=== PATIENT | female | born 1970 | race Caucasian/White ===

== ENCOUNTER → 2020-12-03 07:01 | Outpatient (CLI) | payer OTHER, SELFPAY ==
--- NOTE | 2020-12-03 07:05 | CT_ITS ---
STUDY: CT FACIAL BONES WITHOUT CONTRAST REASON FOR EXAM: Female, 50 years old. FACIAL PAIN. Daily headaches. RADIATION DOSAGE (If Supplied By Facility): CTDIvol = ( 33.06 ) mGy, DLP = ( 842.11 ) mGycm TECHNIQUE: The patient was scanned in a multi detector CT scanner. Sagittal and coronal images were reconstructed. Individualized dose optimization techniques were used for this CT. COMPARISON: None. FINDINGS: Normal soft tissue structures. Normal orbital chaney and orbital contents. Normal nasal bones and anterior nasal spine. Nasal septal deviation towards the right side of the midline. Normal facial bones. There is no demonstrated fracture. Normal visualized paranasal sinuses. CT/Sinus/Facial Bone IMPRESSION: Normal unenhanced CT of the facial bones. Electronically Signed: Jenaro Gibson MD at 9:47 EDT , Service support ,
== END ==
PROVIDERS: PCP Nurse Practitioner Family; Referring Provider Otolaryngology; Visit Provider Otolaryngology
DX: J32.9 Chronic sinusitis, unspecified (principal); R51.9 Headache, unspecified
CPT/HCPCS: 70486

== ENCOUNTER 2022-10-11 06:30 | Day surgery (SDC) | payer OTHER, SELFPAY ==
[2022-10-11] VITALS (7 sets, daily range): BP systolic 91–135; BP diastolic 59–79; PULSE 54–65; RESP 18–93; TEMP 36.3–36.6; O2SAT 18–97; BMI 31.8
[2022-10-11] MEDS: Lactated Ringers 1,000 ML 15 ML IV (06:58)
--- NOTE | 2022-10-11 07:30 | RAD_ITS ---
PROCEDURE: Lumbar steroid injections. DATE OF EXAMINATION: October 11, 2022 INDICATION: Female, 52 years old. Chronic back pain. FLUOROSCOPY TIME (if supplied): 31 seconds. 11 images are submitted RAD/Lumbar Spine 2 or 3 Views IMPRESSION: Intraoperative images are provided for transforaminal injections on the left at L2-3, L3-4, L4-5, and L5-S1. Electronically Signed: Michael Irwin MD at 12:32 EDT Reading Location ID and State: [id number] / Unknown , Service support ,
[2022-10-11] MEDS: Lidocaine 1% (20 ml mdv) 20 ML Vial (07:40)
[2022-10-11] MEDS: MethylPREDNISolone Acetate 40 MG/ML Vial IM (07:40)
--- NOTE | 2022-10-11 07:51 | PCM.OPRPT ---
Report of Operation Date of Procedure: 10/11/22 Pre-Operative Diagnosis: Lumbosacral spondylosis, lumbosacral degenerative disc disease, lumbar facet arthropathy Post-Operative Diagnosis: Lumbosacral spondylosis, lumbosacral degenerative disc disease, lumbar facet arthropathy Surgery/Procedure Performed:: Left-sided lumbar radiofrequency ablation of the medial branch L4, L5, S1 Type of Anesthesia: MAC Estimated Blood Loss (mL): Minimal Description of Procedure: History and physical today was reviewed. Risks and benefits of procedure explained. The patient understood, agreed to the procedure and informed consent was obtained. IV inserted per routine protocol. The patient was taken to the operating room, placed in the prone position with a pillow positioned underneath the abdomen. The left side of the lower back was prepped and draped in a sterile fashion using iodine x 3. Under fluoroscopy guidance, on an oblique view, the L3 through S1 vertebral bodies were visualized. The skin and subcutaneous tissue was anesthetized with approximately 10 mL of 1% lidocaine using a 25-gauge regular needle. Under direct visualization with fluoroscopy at approximately 25-degree angle, starting on the left L3, ending on the left S1 passing through the L4-L5 using a 20-gauge 15 cm with a 10 mm curved active tip radiofrequency ablation needle the needle passed through the skin. The tip of the needle was maneuvered and directed towards the superior and medial gutter of the transverse process at the vicinity of the medial branch. Once the tip of the needle was in contact with the bone, the needle pulled approximately 2 mm up the bone. The stylet of each needle was then removed. After negative aspiration of blood with CSF and confirmation of AP as well as oblique view, radiofrequency ablation probe was then inserted at each level. Impedance was then recorded at L3 to be 247, at L4 273, at L5 291, at S1 309 ohm. Motor-evoked potential was then initiated to 1.5 volt without any motor response at each corresponding level. The probe was then removed intact and a total of 6 mL preservative-free 1% lidocaine was injected in divided doses between those 4 levels after negative aspiration of blood with CSF. The radiofrequency ablation probe was then reinserted after confirmation of AP, oblique as well as lateral view. Radiofrequency ablation was then initiated to 80 degrees Celsius for 90 seconds at each level. Once concluded, the probe was then removed intact and a total of 6 mL of preservative-free 0.25% Marcaine with 40 mg Depo-Medrol was injected in divided doses between those 4 levels. The needles were then removed intact. The patient experienced no signs or symptoms of intrathecal, intravascular injection. The patient experienced no paraesthesia. The procedure was completed without any apparent difficulty, any complication. The patient appeared to tolerate well. Sensory as well as motor exam was unchanged from prior to procedure. ASSESSMENT AND PLAN: This is a 52-year-old female with lumbosacral spondylosis, lumbosacral degenerative disc disease, lumbar facet arthropathy, status post left-sided lumbar radiofrequency ablation of the medial branch L4 through S1. The patient will continue her current medications. The patient will follow up in approximately 2 weeks for reevaluation. Complications None
== END 2022-10-11 08:24 | disposition home or self-care (01) ==
LOC: SDC 06:39 → AC 06:41
PROVIDERS: PCP Nurse Practitioner Family; Referring Provider Anesthesiology Pain Medicine; Visit Provider Anesthesiology Pain Medicine
PROC: (CPT 64635; principal; 2022-10-11 07:55)
DX: M47.816 Spondylosis without myelopathy or radiculopathy, lumbar region (principal); M51.37 Other intervertebral disc degeneration, lumbosacral region; M47.817 Spondylosis without myelopathy or radiculopathy, lumbosacral region; F41.9 Anxiety disorder, unspecified; R05.3 Chronic cough; I10 Essential (primary) hypertension; F17.200 Nicotine dependence, unspecified, uncomplicated
CPT/HCPCS: 64635; 64483; 72100; 76000; J7120

== ENCOUNTER → 2023-04-06 | Outpatient (CLI) | payer OTHER, SELFPAY ==
--- NOTE | 2023-04-06 14:55 | RAD_ITS ---
INDICATION: PNEUMONIA EXAMINATION/TECHNIQUE: X-RAY - XR Chest 2 Views COMPARISON: Prior study dated: 06/17/2015. FINDINGS: LINES/DEVICES: None. LUNGS: Right perihilar opacity/infiltrate likely in the superior segment of the right lower lobe concerning for pneumonia. No evidence of pleural effusions. MEDIASTINUM AND CARDIOVASCULAR STRUCTURES: Cardiac silhouette not enlarged. Central airways and mediastinal contour are unremarkable. BONES AND SOFT TISSUES: Unremarkable. RAD/Chest PA and Lateral IMPRESSION: Right perihilar infiltrate concerning for pneumonia. Follow-up exam until resolution is recommended to exclude underlying tumor. Electronically Signed: Thien Hawthorne MD at 8:23 EST ,
--- OUTSIDE RECORDS SUMMARY | 2023-04-06 15:18 | XMS RPT_ITS | CCD ---
Author Name Unknown Address [address] [place] [address] Organization [facility] Care Team Providers Care Network Support Analyst Name Role Phone REFERRING, AMARJIT GENE ID Unavailable Unavailable ALEKSANDAR CRUZ Unavailable Unavailable PHYSICIAN, NONE Unavailable Unavailable ANTHONY STEM THRESHING MACHINE OPERATOR - ROLLING MACHINE OPERATOR AUTOMATIC, ALEKSANDAR Diaz Primary Care Phys ician AnthonyAleksandar trevizo Primary Care Provider [phone] Geovanny Grajeda MD Unavailable Mendel Wagner MD Unavailable GEOVANNY GRAJEDA Admitting Unavailable GEOVANNY GRAJEDA Attending Unavailable ANTHONY, ALEKSANDAR Primary Care Unavailable ANTHONY, ALEKSANDAR Primary Care Unavailable MENDEL WAGNER Admitting Unavailable MENDEL WAGNER Attending Unavailable ANTHONY, ALEKSANDAR Primary Care Unavailable ANTHONY, ALEKSANDAR Primary Care Unavailable LYUBOV HAMMOND Attending Unavailable MENDEL WAGNER Attending Unavailable ANTHONY, ALEKSANDAR Primary Care Unavailable GEOVANNY GRAJEDA Attending Unavailable GEOVANNY GRAJEDA Referring Unavailable ANTHONY, ALEKSANDAR Primary Care Unavailable MENDEL WAGNER Attending Unavailable ANTHONY, ALEKSANDAR Primary Care Unavailable MANNIE BRAXTON Attending Unavailable ANTHONY, ALEKSANDAR Primary Care Unavailable IRIS WARREN Attending Unavailable ANTHONY, ALEKSANDAR Primary Care Unavailable MENDEL WAGNER Attending Unavailable ANTHONY, ALEKSANDAR Primary Care Unavailable GEOVANNY GRAJEDA Attending Unavailable ANTHONY, ALEKSANDAR Primary Care Unavailable GEOVANNY GRAJEDA Attending Unavailable GEOVANNY GRAJEDA Referring Unavailable ANTHONY, ALEKSANDAR Primary Care Unavailable ANTHONY STEM THRESHING MACHINE OPERATOR - ROLLING MACHINE OPERATOR AUTOMATICALEKSANDAR Primary Care U BILLY Arias MD Attending Unavail able ANTHONY STEM THRESHING MACHINE OPERATOR - ROLLING MACHINE OPERATOR AUTOMATICALEKSANDAR Primary Care U navailable ANTHONY STEM THRESHING MACHINE OPERATOR - ROLLING MACHINE OPERATOR AUTOMATIC, ALEKSANDAR Diaz Attending U navailable ANTHONY STEM THRESHING MACHINE OPERATOR - ROLLING MACHINE OPERATOR AUTOMATIC, ALEKSANDAR Diaz Attending U navailable ANTHONY STEM THRESHING MACHINE OPERATOR - ROLLING MACHINE OPERATOR AUTOMATIC, ALEKSANDAR Diaz Primary Care U navailable ANTHONY STEM THRESHING MACHINE OPERATOR - ROLLING MACHINE OPERATOR AUTOMATIC, ALEKSANDAR Diaz Attending U navailable ANTHONY STEM THRESHING MACHINE OPERATOR - ROLLING MACHINE OPERATOR AUTOMATIC, ALEKSANDAR Diaz Primary Care U navailable ANTHONY STEM THRESHING MACHINE OPERATOR - ROLLING MACHINE OPERATOR AUTOMATIC, ALEKSANDAR Diaz Attending U navailable ANTHONY STEM THRESHING MACHINE OPERATOR - ROLLING MACHINE OPERATOR AUTOMATIC, ALEKSANDAR Diaz Primary Care U evonailable LOWE HOT WALKER-C, DARIANA Attending Unavailable ANTHONY STEM THRESHING MACHINE OPERATOR - ROLLING MACHINE OPERATOR AUTOMATIC, ALEKSANDAR Diaz Primary Care U navailable ANTHONY STEM THRESHING MACHINE OPERATOR - ROLLING MACHINE OPERATOR AUTOMATIC, ALEKSANDAR Diaz Primary Care U navailable PREBISH ROLLING MACHINE OPERATOR AUTOMATIC, MAIDA Attending Unavailable Allergies Allergy Classification Reported Allergen(s) Allergy Type Date of Onset Reaction(s) Facility (8 sources) Acetaminophen / HYDROcodone; Translations: [acetaminophen-h ydrocodone] Drug Allergy Hyperactivity [facility] (8 sources) corn extract Drug Allergy [facility] (8 sources) Egg Food allergy [facility] (8 sources) [place] Animalia; Translations: [[place] Animalia (organism)] Allergy to substance [facility] (8 sources) Mushroom (edible) Food allergy Swelling (finding) [facility] (8 sources) Penicillin; Translations: [penicillins] Drug Allergy N/V diarrhea [facility] (8 sources) Shellfish Food allergy [facility] (8 sources) Sugar intake; Translations: [Sugar intake (observable entity)] Food allergy [facility] (20 sources) Diclofenac; Translations: [diclofenac] Drug Allergy 11-09-19 Stomach ache (finding) [facility] [place] (10 sources) Acetaminophen / HYDROcodone Drug Allergy 10-13-19 13 Hallucinations [facility] (20 sources) [place] [employer] Drug Allergy 11-09-19 [facility] (20 sources) Egg Allergy to substance 11-09-19 [facility] (20 sources) HYDROcodone Drug Allergy 10-12-19 [facility] (20 sources) Penicillins Drug Intolerance 10-13-19 13 Diarrhea, Itching, Nausea And Vomiting, Unknown [facility] (20 sources) Shellfish Allergy to substance 11-09-19 Hives [facility] (20 sources) Food Allergy to substance 11-09-19 Swelling [facility] (3 sources) Octacosanol Propensity to adverse reactions 11-09-19 [facility] (20 sources) Pollen Propensity to adverse reactions 11-19-19 [facility] (16 sources) Contrast media Propensity to adverse reactions 11-25-19 Diarrhea [facility] (10 sources) Other Propensity to adverse reactions 01-13-20 [facility] Medications Current Medications Medication Drug Class(es) Dates Sig (Normalized) Sig (Original) acetaminophen 325 mg / oxyCODONE hydrochloride 5 mg oral tablet (3 sources) Opioid Agonist Start: 01-20-2023 End: 01-25-2023 take 1 tablet by mouth every six hours as needed for pain oxyCODONE-acetamino phen (Percocet) 5-325 MG tablet Indications: UPJ obstruction, acquired Take 1 tablet by mouth every 6 hours as needed for severe pain (7-10) for up to 5 days. 12 tablet 0 01/20/2023 01/25/2023 Active albuterol MDI (90 mcg/inh) CFC free inhalation aerosol (2 sources) Start: 03-03-2023 End: 04-02-2023 take 2 puff(s) by inhalation every six hours albuterol MDI (90 mcg/inh) CFC free inhalation aerosol 2 puff(s), Inhalation, q6h, # 18 gram(s), 0 Refill(s), Pharmacy: [facility]/pharmacy #[id number], Wheezing on auscultation, 167, cm, 03/03/23 13:13:00 EST, Height, kg, 03/03/23 13:13:00 EST, Dosing Weight Start Date: 03/03/23 Stop Date: 04/02/23 Status: Ordered azithromycin 250 mg oral tablet (1 source) Macrolide Antimicrobial Start: 03-03-2023 End: 03-08-2023 Zithromax Z-Amado 250 mg oral tablet Take two (2) tablets day 1-then one (1) tablet, Oral, Daily, X 5 day(s), # 6 tab(s), 0 Refill(s), 03/08/23 1:42:00 PM EST, [id number], Acute bronchitis, 167, cm, 03/03/23 13:13:00 EST, Height, 81, kg, 03/03/23 13:13:00 EST, Dosing Weight Start Date: 03/03/23 Stop Date: 03/08/23 Status: Ordered dexamethasone 6 mg oral tablet (1 source) Corticosteroid Start: 03-03-2023 End: 03-13-2023 dexAMETHasone 6 mg oral tablet Dose : 6 mg = 1 tab(s), Oral, qDay, X 10 day(s), # 10 tab(s), 0 Refill(s), 03/13/23 1:42:00 PM EST, Pharmacy: [facility]/pharmacy #[id number], Wheezing on auscultation, 167, cm, 03/03/23 13:13:00 EST, Height, kg, 03/03/23 13:13:00 EST, Dosing Weight Start Date: 03/03/23 Stop Date: 03/13/23 Status: Ordered diclofenac sodium 75 mg delayed release oral tablet (1 source) Nonsteroidal Anti-inflammatory Drug Start: 07-30-2021 End: 08-29-2021 diclofenac sodium 75 mg oral delayed release tablet Dose : 75 mg = 1 tab(s), Oral, BID, # 60 tab(s), 0 Refill(s), Pharmacy: [facility]/pharmacy #[id number], Lower back pain, 166, cm, 07/30/21 15:48:00 EDT, Height Start Date: 07/30/21 Stop Date: 08/29/21 Status: Ordered doxycycline hyclate 100 mg oral tablet (1 source) Tetracycline-class Drug Start: 09-07-2022 take 1 tablet by mouth twice daily doxycycline hyclate 100 mg oral tablet TAKE 1 TABLET BY MOUTH TWICE A DAY Start Date: 09/07/22 Status: Ordered [id number] 0.3 ml EPINEPHrine 1 mg/ml auto-injector (20 sources) alpha-Adrenergic Agonist, beta-Adrenergic Agonist, Catecholamine Start: 06-14-2022 inject 0.3 mg by subcutaneous injection once EPINEPHrine (Epipen) 0.3 MG/0.3ML injection syringe INJECT 0.3 MG SUBCUTANEOUSLY ONCE 0 06/14/2022 Active Completed/Discontinued Medications Medication Drug Class(es) Dates Sig (Normalized) Sig (Original) acetaminophen 500 mg oral tablet (20 sources) Start: 01-19-2023 End: 01-20-2023 take 1 tablet by mouth every eight hours 1,000 mg, Oral, Every 8 hours, First dose on Tue01/19/23 at 2300, Phase II/On Unit, Maximum dose of acetaminophen is 4000 mg from all sources in 24 hours. Problems Active Problems Problem Classification Problem Date Documented Da te Episodic/Chronic Abdominal pain (9 sources) Flank pain; Translations: [Unspecified abdominal pain] Onset: 11-24-2022 11-24-2022 Episodic Acute bronchitis (2 sources) Acute bronchitis 03-03-2023 Episodic Anxiety disorders (8 sources) Generalized anxiety disorder 04-14-2021 Chronic Calculus of urinary tract (10 sources) History of calculus of kidney; Translations: [Personal history of urinary calculi] Onset: 11-08-2022 02-07-2020 Episodic Past or Other Problems Problem Classification Problem Date Documented Date Episodic/Chronic Conditions associated with dizziness or vertigo (1 source) Vertigo Onset: 09-27-2016 Episodic Nausea and vomiting (20 sources) Postoperative nausea and vomiting; Translations: [Nausea with vomiting, unspecified] Onset: 11-15-2022 11-15-2022 Episodic Other diseases of kidney and ureters (2 sources) Hydronephrosis with ureteropelvic junction obstruction; Translations: [Hydronephrosis with ureteropelvic junction obstruction] Onset: 11-24-2022 Episodic Other diseases of kidney and ureters (2 sources) Unspecified hydronephrosis; Translations: [Unspecified hydronephrosis] Onset: 11-18-2022 Episodic Results Test Name Value Interpretation Reference Range Facil ity Vital Signs Date Time Vital Sign Value Performing Clinician Chani kelly 03-02-2023 10:12-0500 Body height 167.6 cm Mendel Wagner MD Work Phone: [employer] 03-02-2023 10:12-0500 Body mass index (BMI) [Ratio] 31.47 kg/m2 Mendel Wagner MD Work Phone: [employer] 03-02-2023 10:12-0500 Body weight 88.45 kg Mendel Wagner MD Work Phone: [employer] 03-02-2023 10:12-0500 Diastolic blood pressure 86 mm[Hg] Mendel Wagner MD Work Phone: [employer] 03-02-2023 10:12-0500 Heart rate 76 /min Mendel Wganer MD Work Phone: [employer] 03-02-2023 10:12-0500 Systolic blood pressure 124 mm[Hg] Mendel Wagner MD Work Phone: [facility] [employer] 02-02-2023 08:38-0500 Body height 167.6 cm Iris Warren STEM THRESHING MACHINE OPERATOR - ROLLING MACHINE OPERATOR AUTOMATIC Work Phone: [facility] 02-02-2023 08:38-0500 Body mass index (BMI) [Ratio] 31.47 kg/m2 Iris Warren STEM THRESHING MACHINE OPERATOR - ROLLING MACHINE OPERATOR AUTOMATIC Work Phone: [facility] 02-02-2023 08:38-0500 Body weight 88.45 kg Iris Warren STEM THRESHING MACHINE OPERATOR - ROLLING MACHINE OPERATOR AUTOMATIC Work Phone: [facility] 02-02-2023 08:38-0500 Diastolic blood pressure 70 mm[Hg] Iris Warren STEM THRESHING MACHINE OPERATOR - ROLLING MACHINE OPERATOR AUTOMATIC Work Phone: [employer] 02-02-2023 08:38-0500 Heart rate 59 /min Iris Warren STEM THRESHING MACHINE OPERATOR - ROLLING MACHINE OPERATOR AUTOMATIC Work Phone: [employer] 02-02-2023 08:38-0500 Systolic blood pressure 103 mm[Hg] Iris Warren STEM THRESHING MACHINE OPERATOR - ROLLING MACHINE OPERATOR AUTOMATIC Work Phone: [facility] 01-20-2023 09:40-0400 Body temperature 97.9 [degF] Mendel Wagner MD Work Phone: [employer] 01-20-2023 09:40-0400 Diastolic blood pressure 82 mm[Hg] Mendel Wagner MD Work Phone: [facility] 01-20-2023 09:40-0400 Heart rate 70 /min Mendel Wagner MD Work Phone: [facility] 01-20-2023 09:40-0400 Respiratory rate 16 /min Mendel Wagner MD Work Phone: [facility] 01-20-2023 09:40-0400 SaO2% (BldA) [Mass fraction] 94 % Mendel Wagner MD Work Phone: [facility] 01-20-2023 09:40-0400 Systolic blood pressure 133 mm[Hg] Mendel Wagner MD Work Phone: [facility] 01-19-2023 13:12-0400 Body height 167.6 cm Mendel Wagner MD Work Phone: [facility] 01-19-2023 13:12-0400 Body mass index (BMI) [Ratio] 31.96 kg/m2 Mendel Wagner MD Work Phone: [facility] 01-19-2023 13:12-0400 Body weight 89.81 kg Mendel Wagner MD Work Phone: [facility] 01-07-2023 12:25-0400 Diastolic blood pressure 77 mm[Hg] Lyubov Voll DO Work Phone: [facility] 01-07-2023 12:25-0400 Heart rate 65 /min Lyubov Voll DO Work Phone: [facility] 01-07-2023 12:25-0400 Respiratory rate 18 /min Lyubov Voll DO Work Phone: [facility] 01-07-2023 12:25-0400 SaO2% (BldA) [Mass fraction] 93 % Lyubov Voll DO Work Phone: [facility] 01-07-2023 12:25-0400 Systolic blood pressure 143 mm[Hg] Lyubov Voll DO Work Phone: [facility] 01-07-2023 09:33-0400 Body height 167.6 cm Lyubov Voll DO Work Phone: [facility] 01-07-2023 09:33-0400 Body mass index (BMI) [Ratio] 31.8 kg/m2 Lyubov Voll DO Work Phone: [facility] 01-07-2023 09:33-0400 Body temperature 98.29 [degF] Lyubov Voll DO Work Phone: [facility] 01-07-2023 09:33-0400 Body weight 89.36 kg Lyubov Vuongl DO Work Phone: [facility] 12-16-2022 13:44-0400 Body height 167.6 cm Mannie Braxton STEM THRESHING MACHINE OPERATOR - ROLLING MACHINE OPERATOR AUTOMATIC Work Phone: [facility] 12-16-2022 13:44-0400 Body mass index (BMI) [Ratio] 31.64 kg/m2 Mannie Braxton STEM THRESHING MACHINE OPERATOR - ROLLING MACHINE OPERATOR AUTOMATIC Work Phone: [facility] 12-16-2022 13:44-0400 Body weight 88.91 kg Mannie Braxton STEM THRESHING MACHINE OPERATOR - ROLLING MACHINE OPERATOR AUTOMATIC Work Phone: [facility] 12-16-2022 13:44-0400 Diastolic blood pressure 78 mm[Hg] Mannie Neily STEM THRESHING MACHINE OPERATOR - ROLLING MACHINE OPERATOR AUTOMATIC Work Phone: [facility] 12-16-2022 13:44-0400 Heart rate 73 /min Mannie Neily STEM THRESHING MACHINE OPERATOR - ROLLING MACHINE OPERATOR AUTOMATIC Work Phone: [facility] 12-16-2022 13:44-0400 Systolic blood pressure 162 mm[Hg] Mannie Neily STEM THRESHING MACHINE OPERATOR - ROLLING MACHINE OPERATOR AUTOMATIC Work Phone: [facility] 11-18-2022 15:00-0400 Diastolic blood pressure 74 mm[Hg] Geovanny Grajeda MD Work Phone: [facility] 11-18-2022 15:00-0400 Heart rate 62 /min Geovanny Grajeda MD Work Phone: [facility] 11-18-2022 15:00-0400 Respiratory rate 16 /min Geovanny Grajeda MD Work Phone: [facility] 11-18-2022 15:00-0400 SaO2% (BldA) [Mass fraction] 94 % Geovanny Grajeda MD Work Phone: [facility] 11-18-2022 15:00-0400 Systolic blood pressure 123 mm[Hg] Geovanny Grajeda MD Work Phone: [facility] 11-18-2022 13:40-0400 Body temperature 98.1 [degF] Geovanny Grajeda MD Work Phone: [facility] 11-18-2022 09:31-0400 Body height 167.6 cm Geovanny Grajeda MD Work Phone: [facility] 11-18-2022 09:31-0400 Body mass index (BMI) [Ratio] 31.64 kg/m2 Geovanny Grajeda MD Work Phone: [facility] 11-18-2022 09:31-0400 Body weight 88.91 kg Geovanny Grajeda MD Work Phone: [facility] 03-11-2022 12:54-0500 Diastolic Blood Pressure Non-Invasive 75 1 BILLY ANGULO MD [facility] 03-11-2022 12:54-0500 Heart rate 74 /min BILLY ANGULO MD [facility] 03-11-2022 12:54-0500 Respiratory rate 17 /min BILLY ANGULO MD [facility] 03-11-2022 12:54-0500 Systolic Blood Pressure Non-Invasive 112 1 BILLY ANGULO MD [facility] 03-11-2022 12:33-0500 Diastolic Blood Pressure Non-Invasive 76 1 BILLY ANGULO MD [facility] 03-11-2022 12:33-0500 Heart rate 73 /min BILLY ANGULO MD [facility] 03-11-2022 12:33-0500 Respiratory rate 15 /min BILLY ANGULO MD [facility] 03-11-2022 12:33-0500 Systolic Blood Pressure Non-Invasive 119 1 BILLY ANGULO MD [facility] 03-11-2022 12:04-0500 Diastolic Blood Pressure Non-Invasive 74 1 BILLY ANGULO MD [facility] 03-11-2022 12:04-0500 Heart rate 75 /min BILLY ANGULO MD [facility] 03-11-2022 12:04-0500 Respiratory rate 20 /min BILLY ANGULO MD [facility] 03-11-2022 12:04-0500 Systolic Blood Pressure Non-Invasive 112 1 BILLY ANGULO MD [facility] 03-11-2022 10:42-0500 Body height 167.6 cm BILLY ANGULO MD [facility] 03-11-2022 10:42-0500 Body temperature 97.7 [degF] BILLY ANGULO MD [facility] 03-11-2022 10:42-0500 Body weight 87 kg BILLY ANGULO MD [facility] 03-11-2022 10:42-0500 Heart rate 87 /min BILLY ANGULO MD [facility] Encounters Encounter Date Encounter Type Care Provider Facility Start: 03-25-2023 End: 03-26-2023 ambulatory ALEKSANDAR CRUZ STEM THRESHING MACHINE OPERATOR - ROLLING MACHINE OPERATOR AUTOMATIC Facility:[facility] Start: 03-25-2023 End: 03-25-2023 Patient encounter procedure ALEKSANDAR CRUZ STEM THRESHING MACHINE OPERATOR - ROLLING MACHINE OPERATOR AUTOMATIC [facility] Start: 03-07-2023 End: 03-08-2023 ambulatory ALEKSANDAR CRUZ STEM THRESHING MACHINE OPERATOR - ROLLING MACHINE OPERATOR AUTOMATIC Facility:[facility] Start: 03-07-2023 End: 03-07-2023 Patient encounter procedure ALEKSANDAR CRUZ STEM THRESHING MACHINE OPERATOR - ROLLING MACHINE OPERATOR AUTOMATIC [facility] Start: 03-02-2023 End: 03-02-2023 [facility] Start: 03-02-2023 End: 03-02-2023 Patient encounter procedure Mendel Wagner MD Work Phone: [facility] Procedures Date Procedure Procedure Detail Performing Clinician Start: 01-20-2023 Creatinine other source Emmanuel Yepez MD Work Phone: Start: 01-20-2023 Basic metabolic pane l calcium total Emmanuel Yepez MD Work Phone: Start: 01-19-2023 End: 01-19-2023 Laparoscopy surg pyeloplasty Mendel Wagner MD Work Phone: Start: 01-07-2023 Basic metabolic pane l calcium total Noris Chávez STEM THRESHING MACHINE OPERATOR Work Phone: Start: 01-07-2023 Urnls dip stick/tabl et rgnt auto w/o microscopy Noris Chávez STEM THRESHING MACHINE OPERATOR Work Phone: Start: 11-18-2022 FL GUIDANCE OR USE O NLY - NON-RESULTABLE Geovanny Grajeda MD Work Phone: Start: 03-28-2009 Vaginal hysterectomy RI TERRELL SALAZARPKINS STEM THRESHING MACHINE OPERATOR - ROLLING MACHINE OPERATOR AUTOMATIC Start: 03-28-2004 Extracorporeal shock wave lithotripsy of calculus of kidney ALEKSANDAR SALAZARPKINS STEM THRESHING MACHINE OPERATOR - ROLLING MACHINE OPERATOR AUTOMATIC Plan of Treatment Date Care Activity Detail Author Start: 2029 RSV Immunization aged 60 or older (1 - 1-dose 60+ series) RSV Immunization aged 60 or older (1 - 1-dose 60+ series) [facility] Start: 02-16-2025 Diabetes mellitus screening Diabetes Screening [facility] Start: 06-14-2023 End: 06-14-2023 Patient encounter procedure 06/14/2023 9:50 AM EDT Office Visit [facility] [address] [place] [id number] Mendel Wagner MD [address] [place] [address] [facility] Start: 05-30-2023 End: 05-30-2023 Patient encounter procedure 05/30/2023 7:30 AM EST Appointment [facility] [address] [place] [address] Mendel Wagner MD [address] [place] [address] [facility] Start: 03-02-2023 End: 03-02-2024 US Retroperitoneum limited US retroperitoneum limited Imaging Routine Obstruction of left ureteropelvic junction (UPJ) Expected: 03/02/2023, Expires: 03/02/2024 [facility] Work Phone: Immunizations Immunization Date Immunization Notes Care Provider Fa cili 03-17-2021 COVID-19, mRNA, LNP- S, PF, 100 mcg or 50 mcg dose; Translations: [Moderna COVID-19 Vaccine] ALEKSANDAR ANTHONY STEM THRESHING MACHINE OPERATOR - ROLLING MACHINE OPERATOR AUTOMATIC [facility] 08-29-2020 SARS-CoV-2 (COVID-19 ) mRNA-1273 vaccine ALEKSANDAR CRUZ STEM THRESHING MACHINE OPERATOR - ROLLING MACHINE OPERATOR AUTOMATIC [facility] 07-31-2020 SARS-CoV-2 (COVID-19 ) mRNA-1273 vaccine ALEKSANDAR CRUZ STEM THRESHING MACHINE OPERATOR - ROLLING MACHINE OPERATOR AUTOMATIC [facility] Payers Date Payer Category Payer Unknown [employer] [id number] 2022-Present [address] [place] [address] Commercial [id number] 2022 Unknown [id number] 2007 Unknown [id number] 1970 Unknown [id number] 1969 Unknown [id number] 1969 Unknown [id number] 1969 Unknown [id number] 1969 Unknown [id number] 1969 Unknown [id number] 1970 Unknown [id number] Social History Date Type Detail Facility Start: 05-01-2018 End: 03-03-2023 Heavy tobacco smoker (finding) [facility] Start: 1970 Sex Assigned At Female A [facility] Start: 10-26-1984 End: 02-02-2023 Tobacco smoking status NHIS Smokes tobacco daily [facility] Start: 10-26-1984 End: 11-06-2022 History of tobacco use Cigarette Smoker [facility] Start: 11-15-2022 End: 01-20-2023 Cigarettes smoked current (pack per day) - Reported 1 [facility] Start: 11-15-2022 End: 02-02-2023 Tobacco use and exposure Smokeless tobacco non-user [facility] Start: 11-15-2022 End: 01-19-2023 Alcohol intake Current drinker of alcohol (finding) [facility] Start: 11-15-2022 End: 01-20-2023 Tobacco use panel [facility] Start: 1970 Sex Assigned At Not on file [facility] Start: 11-05-2022 End: 12-16-2022 Exposure to SARS-CoV-2 (event) Not sure [facility] Tobacco smoking stat us LAIS Tobacco smoking consumption unknown [facility] Work Phone: Start: 01-07-2023 Alcohol Comment one to two daily [facility] Start: 01-07-2023 Gender identity Identifies as female gender (finding) [facility] How often to you hav e a drink containing alcohol? Monthly or less [facility] How many standard drinks containing alcohol do you have on a typical day? 1 or 2 [facility] Frequency of Binge Drinking Not on file [facility] Within the last year , have you been afraid of your partner or ex-partner? No [facility] How often to you hav e a drink containing alcohol? 4 or more times a week [facility] How often do you hav e 6 or more drinks on 1 occasion? Never [facility] Start: 01-21-2023 End: 03-02-2023 Alcohol intake Ex-drinker (finding) [facility] Medical Equipment Procedure Code Equipment Code Equipment Origin al Text Equipment Identifier Dates Stent Uret 6fr 2 6cm Wo Gw - [id number] Start: 11-18-2022 Stent Uret 6fr 2 6cm Wo Gw - [id number] Start: 01-19-2023 Functional Status Date Assessment Result Facility 03-11-2022 Functional Status Independent [facility] 03-11-2022 Functional Status Standard Safet y ID band on, Allergy Band on, Call device within reach, Bed in low position, Wheels locked [facility] Mental Status Date Assessment Result Facility 03-11-2022 Mental Status Orientation Oriented x 4 [facility] 03-11-2022 Mental Status [facility] Clinical Notes 03-11-2022 to 03-07-2023 Carlee Velazquez RN - 03/02/2023 10:20 AM Jim Wagner MD - 03/02/2023 10:20 AM ESTAddendum Note - Deborah Drew MA - 03/02/2023 10:20 AM Denita Freed RN - 01/20/2023 2:42 PM EDTLaboratory Note Date & Type Note Facility 03-07-2023 Note ORIGINAL EXAMINATION: TWO XRAY VIEWS OF THE CHEST03/07/2023 8:54 am COMPARISON: None HISTORY: ORDERING SYSTEM PROVIDED HISTORY: Reason for Exam: Productive cough, shortness of breath and wheezing not improved with conservative outpatient management FINDINGS: The heart size is normal. A new masslike area of consolidation projects in the right parahilar region measuring up to 4.9 cm. When correlated with the lateral image, this abnormality is believed to be within the superior segment right lower lobe. No pneumothorax or pleural effusion. No aggressive osseous lesions identified.Degenerative changes seen of the spine. IMPRESSION: New masslike area of consolidation in the superior segment of the right lower lobe. Differential diagnosis includes an unusual appearance of pneumonia or a pulmonary malignancy. If there are signs of pneumonia, close surveillance may be obtained to ensure resolution. If there are no signs of pneumonia or if the opacity does not resolve, CT will be necessary to exclude malignancy. The findings were sent to the Radiology Results Communication Center at 9:00 am on 03/07/2023 to be communicated to a licensed caregiver. 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 The patient concurred with the proposed plan, giving informed consent. Cystoscopy was performed today under local anesthesia, using sterile technique. The patient was placed on the office table, prepped with Betadine, and draped in the usual sterile fashion. A flexible cystoscope was used to perform this procedure. Findings: Anterior urethra: normal without strictures and without scarring. Bladder: Normal mucosa, without lesions. Ureteral orifice(s) was/were seen bilateral. Ureteral orifice(s) bilateral were in the normal location and bilateral ureteral orifices were effluxing clear urine. A stent removal was performed from the left side without complication Specimens: none Complications: None; patient tolerated the procedure well. Disposition: To home after 30 minute observation. Condition: stable Attending Attestation: I performed the procedure. Check renal US in 3 mo 6 weeks post op robotic left pyeloplasty [facility] 03-02-2023 Note Addended by: DEBORAH AVILES on: 03/02/2023 10:45 AM Modules accepted: Orders [facility] 03-02-2023 History of Present illness Narrative ENDOSHEATH [id number] EXP 12/25/25 Images from the original note were not included. Cystoscopy Procedure Note Indications: Obstruction of left ureteropelvic junction (UPJ) [N13.5] Pre-operative Diagnosis: left hydronephrosis Post-operative Diagnosis: same Procedure Details The risks, benefits, complications, treatment options, and expected outcomes were discussed with the patient. The patient concurred with the proposed plan, giving informed consent. Cystoscopy was performed today under local anesthesia, using sterile technique. The patient was placed on the office table, prepped with Betadine, and draped in the usual sterile fashion. A flexible cystoscope was used to perform this procedure. Findings: Anterior urethra: normal without strictures and without scarring. Bladder: Normal mucosa, without lesions. Ureteral orifice(s) was/were seen bilateral. Ureteral orifice(s) bilateral were in the normal location and bilateral ureteral orifices were effluxing clear urine. A stent removal was performed from the left side without complication Specimens: none Complications: None; patient tolerated the procedure well. Disposition: To home after 30 minute observation. Condition: stable Attending Attestation: I performed the procedure. Check renal US in 3 mo 6 weeks post op robotic left pyeloplasty documented in this encounter [facility] 03-02-2023 Miscellaneous Notes Addended by: DEBORAH DREW on: 03/02/2023 10:45 AM Modules accepted: Orders documented in this encounter [facility] 03-02-2023 Note Addended by: DEBORAH AVILES on: 03/02/2023 10:45 AM Modules accepted: Orders [facility] 03-02-2023 Note Addended by: DEBORAH AVILES on: 03/02/2023 10:45 AM Modules accepted: Orders [facility] 03-02-2023 Note Addended by: DEBORAH AVILES on: 03/02/2023 10:45 AM Modules accepted: Orders [facility] 02-02-2023 Telephone encounter Note Return to work letter revised. [facility] [employer] [employer] Work Phone: 02-02-2023 Miscellaneous Notes Return to work letter revised. documented in this encounter [facility] 02-02-2023 History of Present illness Narrative Images from the original note were not included. Iris Warren CNP, APRN 02/02/2023 Urology Office Visit [facility] [address] [facility] [address] Dept: [phone] Dept Loc: [phone] PATIENT NAME: Loni Turner DATE OF : 1970 REFERRING PROVIDER: No ref. provider found PCP: Aleksandar Cruz TODAY'S DATE: 02/02/2023 Loni is a 52 y.o. female who presents today for the following: Chief Complaint Patient presents with Post-op Patient here for follow up post pyeloplasty, pt reports doing well, no issues/concerns Assessment and Plan: Diagnosis Plan 1. Obstruction of left ureteropelvic junction (UPJ) Addressed pyeloplasty follow-up: Patient has been feeling really well. Stated patient can use bacitracin on lower left port site due to irritation from clothing. Follow-up as scheduled for cystoscopy, ureteral stent removal. Would like to return to work on light duty, no lifting at 4 weeks postop. Letter provided. All patient questions answered. Patient voiced understanding. Patient agreed with treatment plan. Follow Up: No follow-ups on file. Iris Warren CNP, APRN [facility] An electronic signature was used to authenticate this note. HPI: Records have been reviewed. 01/19/2023 patient underwent robotic left pyeloplasty for left UPJ obstruction. 11/18/2022: S/p cystoscopy, left retrograde pyelogram, left ureteroscopy, left ureteral stent placement by Geovanny Grajeda MD. A left ureteropelvic junction narrowing was noted intraoperatively; no masses or filling defects noted. Patient had obstruction at the UPJ with intermittent and progressive hydronephrosis over the last 5 years. Since procedure, patient has been feeling really well. Denies pain, flank pain, fever, chills, hematuria, incisional drainage. Patient denies constipation, has been tolerating oral intake. 01/22/2023 Creatinine 0.69, GFR >90 Review of Systems: All pertinent positives and negatives per HPI as stated above. Social History Tobacco Use Smoking status: Every Day Packs/day: 0.50 Years: 38.00 Additional pack years: 0.00 Total pack years: 19.00 Types: Cigarettes Start date: 10/26/1984 Last attempt to quit: 11/06/2022 Years since quittin.2 Smokeless tobacco: Never Vaping Use Vaping Use: Never used Substance Use Topics Alcohol use: Not Currently Alcohol/week: 7.0 standard drinks of alcohol Comment: one to two daily Drug use: Not Currently Frequency: 3.0 times per week Types: Marijuana Comment: smokes Past Medical History: Diagnosis Date Abnormal Pap smear of cervix Allergies Anxiety Arthritis COPD (chronic obstructive pulmonary disease) ([facility]) not diagnosed, patient feels that she had d/t smoking history Degenerative disc disease, lumbar Depression Hypertension Kidney stones PONV (postoperative nausea and vomiting) STD (sexually transmitted disease) Urinary tract infection Past Surgical History: Procedure Laterality Date SECTION, LOW TRANSVERSE COLONOSCOPY HYSTERECTOMY KIDNEY STONE SURGERY LITHOTRIPSY LITHOTRIPSY (HISTORICAL) x3 TONSILLECTOMY adnoids TUBAL LIGATION WISDOM TOOTH EXTRACTION Allergies Allergen Reactions Red Dye #40 [Red Dye] Diarrhea [place] Oil Diclofenac Other reaction(s): Stomach upset Egg Solids, Whole Food Swelling MUSHROOMS; SUGAR (Frutose) Hydrocodone Other reaction(s): Nausea/Vom/Diarrhea, hallucinations Hydrocodone-Acetaminophen Hallucinations VICODIN Other seasonal Penicillins Diarrhea, Itching, Nausea And Vomiting and Unknown Pollen Extract Seasonal allergies Shellfish Allergy Hives Pt reports no issues with contrast dye Current Outpatient Medications Medication Sig Dispense Refill acetaminophen (Tylenol) 500 MG tablet Take 1,000 mg by mouth. EPINEPHrine (Epipen) 0.3 MG/0.3ML injection syringe INJECT 0.3 MG SUBCUTANEOUSLY ONCE escitalopram (Lexapro) 20 MG tablet Take 20 mg by mouth daily. fluticasone (Flonase Allergy Relief) 50 MCG/ACT nasal spray Dose = 1 spray(s), Nostril, each, qDay, 0 Refill(s) valsartan-hydroCHLOROthiazide (Diovan-HCT) 320-12.5 MG tablet Take 1 tablet by mouth daily. ibuprofen 200 MG tablet Take 400 mg by mouth. No current facility-administered medications for this visit. Physical Exam: BP 103/70 (BP Location: Right arm, Patient Position: Sitting, BP Cuff Size: Large adult) Pulse 59 Ht 5' 6 (1.676 m) Wt 195 lb (88.5 kg) BMI 31.47 kg/m Physical Exam Constitutional: Appearance: Normal appearance. Pulmonary: Effort: Pulmonary effort is normal. Abdominal: Palpations: Abdomen is soft. Tenderness: There is no abdominal tenderness. There is no right CVA tenderness or left CVA tenderness. Skin: General: Skin is warm and dry. Neurological: Mental Status: She is alert and oriented to person, place, and time. Psychiatric: Mood and Affect: Mood normal. Behavior: Behavior normal. Pertinent Labs: CBC: Lab Results Component Value Date WBC 7.5 01/22/2023 HGB 15.0 01/22/2023 HCT 43.5 01/22/2023 MCV 96.7 01/22/2023 PLT 195 01/22/2023 CMP: Lab Results Component Value Date NA 137 01/22/2023 K 3.9 01/22/2023 CL 99 01/22/2023 CO2 32 (H) 01/22/2023 BUN 10 01/22/2023 CREATININE 0.69 01/22/2023 GLUCOSE 93 01/22/2023 ALT 25 01/22/2023 AST 46 01/22/2023 ALKPHOS 71 01/22/2023 Testosterone: No results found for: TESTOSTERONE PSA: No results found for: PSA Hemoglobin A1C: No results found for: HGBA1C URINALYSIS: Lab Results Component Value Date COLORU 01/22/2023 Comment: [place] CLARITYU Clear 01/22/2023 GLUCOSEUR Negative 11/08/2022 BILIRUBINUR Negative 11/08/2022 KETONESU Negative 01/22/2023 SPECGRAV 1.005 11/08/2022 RBCUR Trace-Lysed 11/08/2022 PHUR 5.5 11/08/2022 PROTUR 50 (A) 01/22/2023 UROBILINOGEN Normal 01/22/2023 LEUKOCYTESUR Negative 11/08/2022 NITRITE Negative 11/08/2022 Imaging: Procedure: Please note that portions of this chart were dictated using [employer] electronic voice recognition software. It is possible that typos and/or omissions and/or substitutions of words and/or phrases may exist, which may alter the intended meaning of the dictating provider. documented in this encounter [facility] 01-24-2023 Telephone encounter Note Noted. Closing encounter. [facility] Work Phone: 01-24-2023 Miscellaneous Notes Noted. Closing encounter. S: Patient spoke with [facility] nurse regarding post procedure. B: Onset of symptoms/concern Bleeding.Robotic Pyeloplasty 01/19/2023 A:New On set of urinating blood in urine tonight,started at 18:00 Pt has 3 episodes states about a cup with all 3 episodes. Pt denies clots . Bright red blood denies clots with urine. Pain in abdomen and mild. Pt states puncture sites are intact.Denies fever nausea and vomiting. R: Pt will go to [facility]. Patient understands care advice. No further needs at this time. Patient instructed to call back with new or worsening symptoms. Reason for Disposition Patient sounds very sick or weak to the triager Answer Assessment - Initial Assessment Questions 1. SYMPTOM: What's the main symptom you're concerned about? (e.g., pain, fever, vomiting) Bleeding pure blood 2. ONSET: When did start? 18:00 3. SURGERY: What surgery did you have? Robotic Pyeloplasty 4. DATE of SURGERY: When was the surgery? 01/19/2023 5. ANESTHESIA: What type of anesthesia did you have? (e.g., general, spinal, epidural, local) General 6. PAIN: Is there any pain? If Yes, ask: How bad is it? (Scale 1-10; or mild, moderate, severe) Moderate 7. FEVER: Do you have a fever? If Yes, ask: What is your temperature, how was it measured, and when did it start? Denies 8. VOMITING: Is there any vomiting? If Yes, ask: How many times? Denies 9. BLEEDING: Is there any bleeding? If Yes, ask: How much? and Where? Yes 10. OTHER SYMPTOMS: Do you have any other symptoms? (e.g., drainage from wound, painful urination, constipation) Pure Bright red Blood 3 Episodes and 1 cup Protocols used: Post-Op Symptoms and [id number] documented in this encounter [facility] 01-21-2023 Note S: Patient spoke wit h [facility] nurse regarding post procedure. B: Onset of symptoms/concern Bleeding.Robotic Pyeloplasty 01/19/2023 A:New On set of urinating blood in urine tonight,started at 18:00 Pt has 3 episodes states about a cup with all 3 episodes. Pt denies clots . Bright red blood denies clots with urine. Pain in abdomen and mild. Pt states puncture sites are intact.Denies fever nausea and vomiting. R: Pt will go to [facility]. Patient understands care advice. No further needs at this time. Patient instructed to call back with new or worsening symptoms. Reason for Disposition Patient sounds very sick or weak to the triager Answer Assessment - Initial Assessment Questions 1. SYMPTOM: What's the main symptom you're concerned about? (e.g., pain, fever, vomiting) Bleeding pure blood 2. ONSET: When did start? 18:00 3. SURGERY: What surgery did you have? Robotic Pyeloplasty 4. DATE of SURGERY: When was the surgery? 01/19/2023 5. ANESTHESIA: What type of anesthesia did you have? (e.g., general, spinal, epidural, local) General 6. PAIN: Is there any pain? If Yes, ask: How bad is it? (Scale 1-10; or mild, moderate, severe) Moderate 7. FEVER: Do you have a fever? If Yes, ask: What is your temperature, how was it measured, and when did it start? Denies 8. VOMITING: Is there any vomiting? If Yes, ask: How many times? Denies 9. BLEEDING: Is there any bleeding? If Yes, ask: How much? and Where? Yes 10. OTHER SYMPTOMS: Do you have any other symptoms? (e.g., drainage from wound, painful urination, constipation) Pure Bright red Blood 3 Episodes and 1 cup Protocols used: Post-Op Symptoms [id number] Tele[facility] encounter Note S: Patient spoke with [facility] nurse regarding post procedure. B: Onset of symptoms/concern Bleeding.Robotic Pyeloplasty 01/19/2023 A:New On set of urinating blood in urine tonight,started at 18:00 Pt has 3 episodes states about a cup with all 3 episodes. Pt denies clots . Bright red blood denies clots with urine. Pain in abdomen and mild. Pt states puncture sites are intact.Denies fever nausea and vomiting. R: Pt will go to [facility]. Patient understands care advice. No further needs at this time. Patient instructed to call back with new or worsening symptoms. Reason for Disposition Patient sounds very sick or weak to the triager Answer Assessment - Initial Assessment Questions 1. SYMPTOM: What's the main symptom you're concerned about? (e.g., pain, fever, vomiting) Bleeding pure blood 2. ONSET: When did start? 18:00 3. SURGERY: What surgery did you have? Robotic Pyeloplasty 4. DATE of SURGERY: When was the surgery? 01/19/2023 5. ANESTHESIA: What type of anesthesia did you have? (e.g., general, spinal, epidural, local) General 6. PAIN: Is there any pain? If Yes, ask: How bad is it? (Scale 1-10; or mild, moderate, severe) Moderate 7. FEVER: Do you have a fever? If Yes, ask: What is your temperature, how was it measured, and when did it start? Denies 8. VOMITING: Is there any vomiting? If Yes, ask: How many times? Denies 9. BLEEDING: Is there any bleeding? If Yes, ask: How much? and Where? Yes 10. OTHER SYMPTOMS: Do you have any other symptoms? (e.g., drainage from wound, painful urination, constipation) Pure Bright red Blood 3 Episodes and 1 cup Protocols used: Post-Op Symptoms and [id number] [facility] 01-20-2023 History of Present illness Narrative Pt is discharged. Pt discharge instructions printed and reviewed with pt. Pt declines any ordered prescriptions. Meds to bed also verified she denied prescriptions. Pt states she has them at home. Pt iv removed. Pt drain removed. Pt free of distress to discharge with sister. UROLOGY PROGRESS NOTE PATIENT NAME: Loni Turner DATE OF : 1970 ADMISSION DATE: 01/19/2023 1:02 PM TODAY'S DATE: 01/20/2023 Subjective No acute events overnight. Doing well Pain controlled No nausea or vomiting Drinking water Hasn't ambulated yet Demonstrated IS usage on rounds Objective VS: BP (!) 152/92 (BP Location: Left arm) Pulse 79 Temp 36.3 C (97.4 F) (Temporal) Resp 18 Ht 5' 6 (1.676 m) Wt 198 lb (89.8 kg) SpO2 93% BMI 31.96 kg/m Vitals: 01/20/23 0512 BP: (!) 152/92 Pulse: 79 Resp: 18 Temp: 36.3 C (97.4 F) SpO2: 93% I & O - 24hr: Intake/Output Summary (Last 24 hours) at 01/20/2023 0726 Last data filed at 01/20/2023 0627 Gross per 24 hour Intake 612.26 ml Output 395 ml Net 217.26 ml Physical Exam: General: Neck: Resp: Abdomen: No acute distress Supple Normal effort on RA Soft, obese, mild ttp around incisions, incisions c/d/I w/ mild bruising around midline incision, HETAL w/ scant SS output : Catheter draining iris urine (removed) Skin: Skin color, texture, turgor normal, no rashes or lesions Labs and Imaging Studies Labs: CBC: Recent Labs 01/20/23218 WBC 8.1 HGB 15.2 HCT 44.0 MCV 95.7 PLT 224 BMP: Recent Labs 01/20/23218 NA 130* K 4.3 CL 95* CO2 25 BUN 17 CREATININE 0.77 Magnesium: No results found for: MG Phosphate: No results found for: PHOS PT/INR: No results for input(s): PROTIME , INR in the last 72 hours. U/A: No results found for: NITRITE , LEUKOCYTESUR , PHUR , BACTERIA , SPECGRAV , BLOODU , GLUCOSEU , KETONESU Urine Culture: No components found for: LABURIN Obesity BMI 31 Assessment and Plan ASSESSMENT: 52 y.o. female with left UPJ obstruction s/p robotic left pyeloplasty 01/19 PLAN: - catheter removed on rounds - labs reviewed - stable - encourage IS usage and ambulation this morning - continue Ivf for now - regular diet - HETAL Cr needs sent, messaged nurse - plan for discharge later this morning after removal of HETAL drain Emmanuel Yepez MD 01/20/2023 7:26 AM The history and physical has been reviewed. The pertinent findings from the history of present illness, past medical history, family history, social history, review of systems have been noted and confirmed that are unchanged. Discussed with the urology resident. Agree with assessment and plan documented in this encounter [facility] 01-20-2023 Note Formatting of this n ote might be different from the original. Care Managment Initial Assessment Date: 01/20/2023 Patient Name: Loni Turner : 1970 Patient Information Source of Information: Patient Cognition/Language: WFL - Within Functional Limits Permission given to speak with patient marketing representative/caregiver as indicated: Yes Confirmation of Payer with patient/family: Yes Payer Name: O : No Confirmation of Primary Care Physician: Confirmed PCP Name: Dr Aleksandar Neely Seen in last 2 years?: Yes Primary Caregiver: Self If assistance needed, confirmed caregiver ready, willing and able to care for patient at discharge: Yes Confirmed with: Sister Adele Quevedo in from out of town and will be staying with patient for two weeks. Living Arrangements Current Residence: (Patient resides in a one level mobile home) Number of Floors 1 Number of Entry Steps: 2 Bed/Bath Levels: Both first floor Facility: Facility Name: Plan to Return: Lives with: Alone Support Systems: Family members Activities of Daily Living Ambulation: Independent Bathing/Dressing: Independent Elimination/Continence/Toileting: Independent Feeding: Independent Who Assists with Activities of Daily Living: Instrumental Activities of Daily Living Prescription Coverage: Yes Pharmacy Used: [facility] [place], [place] Medication Management: Independent Transportation/Shopping: Independent Transportation Mode: Car Needs Assistance with Transportation at Discharge: No Meal Preparation: Independent Laundry/Cleaning: Independent Finances/Bill Paying: Independent Communication: Independent Types of Care Services/Equipment Utilized Care Services: Dialysis Type: Durable Medical Equipment: Patient's Goal/Discharge Plan Patient expects to be discharged to: home Discharge Planning Actions: No needs identified Patient's Choice Rights and [employer] and Collaborative Relationships Disclosed as Indicated for Post-Acute Care: Interdisciplinary Team Engagement: Social Work Referral for: Additional Information: Pt is POD 1 for Robotic Left Pyeloplasty 2/2 hydronephrosis w ureteropelvic junction obstruction. Post op pt doing well. Tolerating diet, ambulating, voiding. HETAL drain fluid sent for creatinine level HETAL to be dc'd prior to dc Bedside assessment with patient 01/20/23. Introduced self and role. Pt had her sister present(Adele Quevedo). Permission to complete interview in sister's presence given. Plan per pt is for sister to stay with her for two weeks and assist as needed as well as transport pt home. Pt and sister voiced no needs at dc. TCC to follow. Beatris Causey RN [facility] 01-20-2023 Note Formatting of this n ote might be different from the original. Care Managment Initial Assessment Date: 01/20/2023 Patient Name: Loni Turner : 1970 Patient Information Source of Information: Patient Cognition/Language: WFL - Within Functional Limits Permission given to speak with patient marketing representative/caregiver as indicated: Yes Confirmation of Payer with patient/family: Yes Payer Name: MMO : No Confirmation of Primary Care Physician: Confirmed PCP Name: Dr Aleksandar Neely Seen in last 2 years?: Yes Primary Caregiver: Self If assistance needed, confirmed caregiver ready, willing and able to care for patient at discharge: Yes Confirmed with: Sister Adele Emy in from out of town and will be staying with patient for two weeks. Living Arrangements Current Residence: (Patient resides in a one level mobile home) Number of Floors 1 Number of Entry Steps: 2 Bed/Bath Levels: Both first floor Facility: Facility Name: Plan to Return: Lives with: Alone Support Systems: Family members Activities of Daily Living Ambulation: Independent Bathing/Dressing: Independent Elimination/Continence/Toileting: Independent Feeding: Independent Who Assists with Activities of Daily Living: Instrumental Activities of Daily Living Prescription Coverage: Yes Pharmacy Used: [facility] [place], [place] Medication Management: Independent Transportation/Shopping: Independent Transportation Mode: Car Needs Assistance with Transportation at Discharge: No Meal Preparation: Independent Laundry/Cleaning: Independent Finances/Bill Paying: Independent Communication: Independent Types of Care Services/Equipment Utilized Care Services: Dialysis Type: Durable Medical Equipment: Patient's Goal/Discharge Plan Patient expects to be discharged to: home Discharge Planning Actions: No needs identified Patient's Choice Rights and [employer] and Collaborative Relationships Disclosed as Indicated for Post-Acute Care: Interdisciplinary Team Engagement: Social Work Referral for: Additional Information: Pt is POD 1 for Robotic Left Pyeloplasty 2/2 hydronephrosis w ureteropelvic junction obstruction. Post op pt doing well. Tolerating diet, ambulating, voiding. HETAL drain fluid sent for creatinine level HETAL to be dc'd prior to dc Bedside assessment with patient 01/20/23. Introduced self and role. Pt had her sister present(Adele Quevedo). Permission to complete interview in sister's presence given. Plan per pt is for sister to stay with her for two weeks and assist as needed as well as transport pt home. Pt and sister voiced no needs at dc. TCC to follow. Beatris Causey RN [facility] 01-20-2023 Miscellaneous Notes Care Managment Initial Assessment Date: 01/20/2023 Patient Name: Loni Turner : 1970 Patient Information Source of Information: Patient Cognition/Language: WFL - Within Functional Limits Permission given to speak with patient marketing representative/caregiver as indicated: Yes Confirmation of Payer with patient/family: Yes Payer Name: MMO [place]: No Confirmation of Primary Care Physician: Confirmed PCP Name: Dr Aleksandar Neely Seen in last 2 years?: Yes Primary Caregiver: Self If assistance needed, confirmed caregiver ready, willing and able to care for patient at discharge: Yes Confirmed with: Sister Adele Quevedo in from out of town and will be staying with patient for two weeks. Living Arrangements Current Residence: (Patient resides in a one level mobile home) Number of Floors 1 Number of Entry Steps: 2 Bed/Bath Levels: Both first floor Facility: Facility Name: Plan to Return: Lives with: Alone Support Systems: Family members Activities of Daily Living Ambulation: Independent Bathing/Dressing: Independent Elimination/Continence/Toileting: Independent Feeding: Independent Who Assists with Activities of Daily Living: Instrumental Activities of Daily Living Prescription Coverage: Yes [facility] [place], [place] Medication Management: Independent Transportation/Shopping: Independent Transportation Mode: Car Needs Assistance with Transportation at Discharge: No Meal Preparation: Independent Laundry/Cleaning: Independent Finances/Bill Paying: Independent Communication: Independent Types of Care Services/Equipment Utilized Care Services: Dialysis Type: Durable Medical Equipment: Patient's Goal/Discharge Plan Patient expects to be discharged to: home Discharge Planning Actions: No needs identified Patient's Choice Rights and [employer] and Collaborative Relationships Disclosed as Indicated for Post-Acute Care: Interdisciplinary Team Engagement: Social Work Referral for: Additional Information: Pt is POD 1 for Robotic Left Pyeloplasty 2/2 hydronephrosis w ureteropelvic junction obstruction. Post op pt doing well. Tolerating diet, ambulating, voiding. HETAL drain fluid sent for creatinine level HETAL to be dc'd prior to dc Bedside assessment with patient 01/20/23. Introduced self and role. Pt had her sister present(Adele Quevedo). Permission to complete interview in sister's presence given. Plan per pt is for sister to stay with her for two weeks and assist as needed as well as transport pt home. Pt and sister voiced no needs at dc. TCC to follow. Beatris Causey RN Problem: Pain - Adult Goal: Verbalizes/displays adequate comfort level or baseline comfort level Outcome: Progressing Problem: Safety - Adult Goal: Free from fall injury Outcome: Progressing DOS: January 19, 2023 Pre-op Diagnosis: left UPJ obstruction Post-op Diagnosis: same Operation:left Robotic laparoscopic pyeloplasty Surgeon : Mendel Wagner M.D. Electronic Coils Supervisor: Todd Valencia Anesthesia: General Special Consideration: Modifier Indications:Loni Turner is a 52 y.o. year-old female who was referred to ct for treatment of a UPJ obstruction. A CT scan revealed hydronephrosis. Retrograde pyelograms and ureteroscopy were performed and did reveal UPJ obstruction with high insertion and hydronephrosis. The patient was recommended to undergo pyeloplasty with da Leann surgical robot. All risks, benefits and alternatives were discussed, and all questions were answered prior to proceeding. Individual considerations: Left flank pain Procedure : Informed consent was obtained. Patient was given perioperative antibiotics and DVT prophylaxis in preop holding area. General anesthesia was administered. A Mcgoawn catheter was placed. A nasogastrictube was placed by anesthesia. Patient was placed in the lateral position with left flank up . All the pressure points were padded and patient secured to the table with adhesive tapes. STEP 1; PORT PLACEMENT Pneumoperitoneum of 15 mmHg was created by placing a Veress needle below the costal margin in the left upper quadrant. Using a visiport a cannula was placed under direct vision to be used for the camera port. Three additional robotic cannulas were placed under direct vision. A 12mm criminal legal assistant port was placed below the umbilicus. The Surgical robot was docked to the bedside cart. STEP 2; Reflecting the colon The colon was mobilized medially by dissecting along the white line of Toldt. The mobilization was carried out to expose the retroperitoneum. The psoas, gonadal and ureter were exposed. STEP 3; Ureteral Dissection The ureter was mobilized and widely dissected to preserver the vascular supply. A vessel loop was passed around the ureter for atraumatic handling. The ureter was mobilized proximally and distally. The ureter was dissected free from the gonadal and followed to the renal pelvis. A crossing vessel was observed. A high insertion of the ureter was observed. STEP 4; Ureteral Transection The ureter was transected at the level of the stenosis. The strictured area was excised and sent for pathology. The ureter was spatulated laterally. If the renal pelvis opening needed it was spatulated medially. The edges were freshened and the length was adequate for a tension free anastomosis`. STEP 5: Anastamosis Using double armed 4-0 vicryl a running watertight anastomosis was carried out, making certain to bring well vascularized mucosal edges together. The anastomoses was complete part way using both stitches, and prior to finishing this a 6fr x 26cm JJ stent was placed through the criminal legal assistant port over 0.035 glide wire. The anastomosis was then finished and did appear to be water tight. STEP 6; Wound closure Instruments were removed. A HETAL drain was placed through the left lateral robotic port. Skin was closed by subcuticular 4-0 Monocryls. The specimen was removed. Patient tolerated the procedure well. documented in this encounter [facility] 01-20-2023 Note Patient ID: Loni Turner [id number] 52 y.o. 1970 Admit date: 01/19/2023 Discharge date: 01/20/23 Admitting Physician: Mendel Wagner MD Discharge Physician: Mendel Wagner MD Admission Diagnoses: Unspecified hydronephrosis [N13.30] Hydronephrosis with ureteropelvic junction obstruction (CODE) [N13.0] UPJ obstruction, acquired [N13.5] Discharge Diagnoses: Unspecified hydronephrosis [N13.30] Hydronephrosis with ureteropelvic junction obstruction (CODE) [N13.0] UPJ obstruction, acquired [N13.5] Admission Condition: good Discharged Condition: good Indication for Admission: Unspecified hydronephrosis [N13.30] Hydronephrosis with ureteropelvic junction obstruction (CODE) [N13.0] UPJ obstruction, acquired [N13.5] Hospital Course: The patient was taken to OR for 01/19 Robotic pyeloplasty and tolerated procedure without any complications. Immediately post-op, patient was extubated and transferred to PACU in stable condition. After PACU criteria was met, and within 24 hours of procedure, patient was transferred to floor. Throughout tamar-operative course, there was monitoring of vital signs, urine output and clinical status of patient. Diet was subsequently advanced and by the day of discharge, patient was ambulating, voiding and tolerating PO without difficulty. Pain was well controlled with oral medications by time of discharge. Void trial was passed on day of discharge. The HETAL drain had low output and a creatinine level was drawn from its fluid, which was equivalent to the serum creatinine level. Thus, the HETAL drain was removed prior to discharge. Disposition: home Patient Instructions: Medication List START taking these medications oxyCODONE-acetaminophen 5-325 MG tablet; Commonly known as: Percocet; Take 1 tablet by mouth every 6 hours as needed for severe pain (7-10) for up to 5 days. phenazopyridine 200 MG tablet; Commonly known as: Pyridium; Take 1 tablet (200 mg) by mouth 3 times daily for 3 days. senna-docusate sodium 8.6-50 MG tablet; Commonly known as: Senokot-S; Take 1 tablet by mouth daily. CONTINUE taking these medications acetaminophen 500 MG tablet; Commonly known as: Tylenol EPINEPHrine 0.3 MG/0.3ML injection syringe; Commonly known as: Epipen escitalopram 20 MG tablet; Commonly known as: Lexapro Flonase Allergy Relief 50 MCG/ACT nasal spray; Generic drug: fluticasone ibuprofen 200 MG tablet valsartan-hydroCHLOROthiazide 320-12.5 MG tablet; Commonly known as: Diovan-HCT Activity: no heavy lifting for 4-6 weeks Diet: regular diet Wound Care: Ok to shower, but no baths or swimming pools. Allow soap and water to run over incision site and pat dry. Avoid rubbing at incision as this could disrupt the closure. Follow-up with your surgeon post-operative visit. Call office phone number to schedule your appointment. Signed: Lisa Collazo MD 01/20/2023 7:42 AM [facility] 01-20-2023 Note UROLOGY PROGRESS NOTE PATIENT NAME: Loni Turner DATE OF : 1970 ADMISSION DATE: 01/19/2023 1:02 PM TODAY'S DATE: 01/20/2023 Subjective No acute events overnight. Doing well Pain controlled No nausea or vomiting Drinking water Hasn't ambulated yet Demonstrated IS usage on rounds Objective VS: BP (!) 152/92 (BP Location: Left arm) Pulse 79 Temp 36.3 ?C (97.4 ?F) (Temporal) Resp 18 Ht 5' 6 (1.676 m) Wt 198 lb (89.8 kg) SpO2 93% BMI 31.96 kg/m? Vitals: 01/20/23 0512 BP: (!) 152/92 Pulse: 79 Resp: 18 Temp: 36.3 ?C (97.4 ?F) SpO2: 93% I & O - 24hr: Intake/Output Summary (Last 24 hours) at 01/20/2023 07 Last data filed at 01/20/2023 06 Gross per 24 hour Intake 612.26 ml Output 395 ml Net 217.26 ml Physical Exam: General: Neck: Resp: Abdomen: No acute distress Supple Normal effort on RA Soft, obese, mild ttp around incisions, incisions c/d/I w/ mild bruising around midline incision, HETAL w/ scant SS output : Catheter draining iris urine (removed) Skin: Skin color, texture, turgor normal, no rashes or lesions Labs and Imaging Studies Labs: CBC: Recent Labs 01/20/23218 WBC 8.1 HGB 15.2 HCT 44.0 MCV 95.7 PLT 224 BMP: Recent Labs 01/20/23218 NA 130* K 4.3 CL 95* CO2 25 BUN 17 CREATININE 0.77 Magnesium: No results found for: MG Phosphate: No results found for: PHOS PT/INR: No results for input(s): PROTIME , INR in the last 72 hours. U/A: No results found for: NITRITE , LEUKOCYTESUR , PHUR , BACTERIA , SPECGRAV , BLOODU , GLUCOSEU , KETONESU Urine Culture: No components found for: LABURIN Obesity BMI 31 Assessment and Plan ASSESSMENT: 52 y.o. female with left UPJ obstruction s/p robotic left pyeloplasty 01/19 PLAN: - catheter removed on rounds - labs reviewed - stable - encourage IS usage and ambulation this morning - continue Ivf for now - regular diet - HETAL Cr needs sent, messaged nurse - plan for discharge later this morning after removal of HETAL drain Emmanuel Yepez MD 01/20/2023 7:26 AM The history and physical has been reviewed. The pertinent findings from the history of present illness, past medical history, family history, social history, review of systems have been noted and confirmed that are unchanged. Discussed with the urology resident. Agree with assessment and plan [facility] 01-20-2023 Note Problem: Pain - Adul t Goal: Verbalizes/displays adequate comfort level or baseline comfort level Outcome: Progressing Problem: Safety - Adult Goal: Free from fall injury Outcome: Progressing [facility] 01-20-2023 Plan of care note Problem: Pain - Adult Goal: Verbalizes/displays adequate comfort level or baseline comfort level Outcome: Progressing Problem: Safety - Adult Goal: Free from fall injury Outcome: Progressing [facility] 01-19-2023 Note Patient: Loni Pop or Procedure Summary Date: 01/19/23 Room / Location: [address] Operating Room Anesthesia Start: 1551 Anesthesia Stop: 1817 Procedure: ROBOTIC LEFT PYELOPLASTY (Abdomen) Diagnosis: Unspecified hydronephrosis Hydronephrosis with ureteropelvic junction obstruction (CODE) (Unspecified hydronephrosis [N13.30]) (Hydronephrosis with ureteropelvic junction obstruction (CODE) [N13.0]) Surgeons: Mendel Wagner MD Responsible Provider: Ino Glover MD Anesthesia Type: general, regional ASA Status: 2 Anesthesia Type: general, regional Vitals Value Taken Time BP 105/61 01/19/232 Temp 36.2 ?C (97.1 ?F) 01/19/23 182 Pulse 81 01/19/231821 Resp 14 01/19/23 182 SpO2 98 % 01/19/231821 Anesthesia Post Evaluation Patient location during evaluation: PACU Patient participation: complete - patient participated Level of consciousness: awake and alert Pain management: satisfactory to patient Airway patency: patent Dental Injury: no Cardiovascular status: acceptable, blood pressure returned to baseline and hemodynamically stable Respiratory status: acceptable and spontaneous ventilation Hydration status: euvolemic Nausea/Vomiting: controlled No notable events documented. Patient can be discharged once all PACU criteria has been met. [facility] 01-19-2023 Note Patient: Loni Pop or Procedure Summary Date: 01/19/23 Room / Location: [address] Operating Room Anesthesia Start: 155 Anesthesia Stop: 1817 Procedure: ROBOTIC LEFT PYELOPLASTY (Abdomen) Diagnosis: Unspecified hydronephrosis Hydronephrosis with ureteropelvic junction obstruction (CODE) (Unspecified hydronephrosis [N13.30]) (Hydronephrosis with ureteropelvic junction obstruction (CODE) [N13.0]) Surgeons: Mendel Wagner MD Responsible Provider: Ino Glover MD Anesthesia Type: general, regional ASA Status: 2 Anesthesia Type: general, regional Vitals Value Taken Time BP 105/61 01/19/232 Temp 36.2 ?C (97.1 ?F) 01/19/231821 Pulse 81 01/19/232 Resp 14 01/19/23 182 SpO2 98 % 01/19/231821 Anesthesia Post Evaluation Patient location during evaluation: PACU Patient participation: complete - patient participated Level of consciousness: awake and alert Pain score: 0 Pain management: satisfactory to patient Multimodal analgesia pain management approach Airway patency: patent Two or more strategies used to mitigate risk of obstructive sleep apnea Cardiovascular status: acceptable and hemodynamically stable Respiratory status: acceptable Hydration status: acceptable No notable events documented. MIPS #430 PONV Patient received an inhalational anesthetic (4554F) Patient exhibits three or more risk factors for PONV (4556F) Patient received at leaset 2 prophylactic Rx PONV anti-emtic agents of different classes preop and/or intraop (G9775) MIPS # 424 Perioperative Temperature Management Anesthesia time was 60 minutes or longer (4255F) Anesthesai administered was General (inhalational or TIVA) or Neuraxial block (X0424) At least one body temperature greater than 95.8F/35.5C achieved within the 30 mins immediately prior to or the 15 minutes immediately following anesthesia end time (G9771) MIPS #477 Multimodal Pain Management Not emergent case Patient was administered multimodal pain management (two or more drugs and/or interventions excluding systemic opioids) in the periopeartive period occurring at some time between 6 hours prior to anesthesia start time until discharged from PACU (G2148) MIPS #404 Anesthesiology Smoking Abstinence The patient is not a current smoker (e.g. cigarette, cigar, pipe, e-cigarette/vaping/marijuana) If no stop here (G9644) I completed my handoff to the receiving clinician during which we: 1. Identified the patient 2. Identified the responsible provider 3. Reviewed the pertinent medical history 4. Discussed the surgical course 5. Reviewed intra-op anesthesia management and issues during anesthesia 6. Set expectations for post-procedure period 7. Allowed opportunity for questions and acknowledgement of understanding. [facility] 01-19-2023 Note Interval History and Physical I have interviewed and examined the patient and reviewed the recent History and Physical. There have been no changes to the recent H&P documentation. The H&P resides on a progress note on this patient's chart. The patient understands the planned operation and its associated risks and benefits and agrees to proceed. The surgical consent form has been signed. BP 136/82 Pulse 63 Temp 36.3 ?C (97.4 ?F) (Temporal) Resp 16 Ht 5' 6 (1.676 m) Wt 198 lb (89.8 kg) SpO2 97% BMI 31.96 kg/m? [facility] 01-19-2023 Note Airway Date/Time: 01/19/2023 4:00 PM Urgency: scheduled General Information and Staff Patient location during procedure: Procedural Resident/SUPERVISOR CELLARS: Juventino Cummins CRNA Performed: SUPERVISOR CELLARS Performed by: Juventino Cummins CRNA Authorized by: Juventino Cummins CRNA Indications and Patient Condition Indications for airway management: anesthesia Sedation level: Asleep Preoxygenated: yes Patient position: sniffing MILS maintained throughout Mask difficulty assessment: 1 - vent by mask Final Airway Details Final airway type: endotracheal airway Successful airway: ETT Cuffed: yes Successful intubation technique: direct laryngoscopy Facilitating devices/methods: intubating stylet and anterior pressure/BURP Endotracheal tube insertion site: oral Blade: Johanne Blade size: #3 ETT size (mm): 7.0 Cormack-Lehane Classification: grade IIb - view of arytenoids or posterior of glottis only Placement verified by: chest auscultation and capnometry Measured from: lips ETT to lips (cm): 22 Number of attempts at approach: 1 [facility] 01-19-2023 Note Peripheral Block Time Out: 01/19/2023 3:58 PM Start time: 01/19/2023 3:59 PM End time: 01/19/2023 4:01 PM Reason for block: at surgeon's request and post-op pain management Staffing Performed: SUPERVISOR CELLARS Resident/SUPERVISOR CELLARS: Manohar Mack APRN - MEIR Preanesthetic Checklist Completed: patient identified, IV checked, site marked, risks and benefits discussed, surgical consent and timeout performed Region: Truncal Primary: Quadratus Lumborum Secondary: Upper rectus Peripheral Block Prep: ChloraPrep Patient monitoring: heart rate, personnel monitor, continuous pulse ox and continuous capnometry O2: ETT/LMA Laterality: left Injection technique: single-shot Guidance: ultrasound guided -image retained in chart, tip of the needle identified by ultraound during injection. Needle Needle: 21G X 110 mm Additional Notes 40 ml left QL block 20 ml rectus block divided evenly yzbrtiieroy19/25/2023 3:59 PM Assessment Injection assessment: negative aspiration for heme, no paresthesia on injection, incremental injection, local visualized surrounding nerve on ultrasound and transient paresthesias Heart rate change: no Slow fractionated injection: yes Required Documentation: Relevant anatomy identified (Nerves, Vessels, Muscles), Negative for blood on aspiration, Local anesthetic injected incrementally with intermittent aspiration every 5 mL, Normal resistance with injection, Local anesthetic spread visualized around nerves or plane., No EKG changes noted and No symptoms of toxicityMedications vlnSKFOXulzak-dsdfqlbeuei-fuoupsi rine (TAP) syringe - Injection 60 mL - 01/19/2023 3:59:00 PM [facility] 01-19-2023 History and physical note Interval History and Physical I have interviewed and examined the patient and reviewed the recent History and Physical. There have been no changes to the recent H&P documentation. The H&P resides on a progress note on this patient's chart. The patient understands the planned operation and its associated risks and benefits and agrees to proceed. The surgical consent form has been signed. BP 136/82 Pulse 63 Temp 36.3 C (97.4 F) (Temporal) Resp 16 Ht 5' 6 (1.676 m) Wt 198 lb (89.8 kg) SpO2 97% BMI 31.96 kg/m [facility] 01-19-2023 History and physical note Interval History and Physical I have interviewed and examined the patient and reviewed the recent History and Physical. There have been no changes to the recent H&P documentation. The H&P resides on a progress note on this patient's chart. The patient understands the planned operation and its associated risks and benefits and agrees to proceed. The surgical consent form has been signed. BP 136/82 Pulse 63 Temp 36.3 C (97.4 F) (Temporal) Resp 16 Ht 5' 6 (1.676 m) Wt 198 lb (89.8 kg) SpO2 97% BMI 31.96 kg/m documented in this encounter [facility] 01-19-2023 Note Formatting of this n ote might be different from the original. DOS: January 19, 2023 Pre-op Diagnosis: left UPJ obstruction Post-op Diagnosis: same Operation:left Robotic laparoscopic pyeloplasty Surgeon : Mendel Wagner M.D. Electronic Coils Supervisor: Todd Valencia Anesthesia: General Special Consideration: Modifier Indications:Loni Turner is a 52 y.o. year-old female who was referred to ct for treatment of a UPJ obstruction. A CT scan revealed hydronephrosis. Retrograde pyelograms and ureteroscopy were performed and did reveal UPJ obstruction with high insertion and hydronephrosis. The patient was recommended to undergo pyeloplasty with da Leann surgical robot. All risks, benefits and alternatives were discussed, and all questions were answered prior to proceeding. Individual considerations: Left flank pain Procedure : Informed consent was obtained. Patient was given perioperative antibiotics and DVT prophylaxis in preop holding area. General anesthesia was administered. A Mcgowan catheter was placed. A nasogastrictube was placed by anesthesia. Patient was placed in the lateral position with left flank up . All the pressure points were padded and patient secured to the table with adhesive tapes. STEP 1; PORT PLACEMENT Pneumoperitoneum of 15 mmHg was created by placing a Veress needle below the costal margin in the left upper quadrant. Using a visiport a cannula was placed under direct vision to be used for the camera port. Three additional robotic cannulas were placed under direct vision. A 12mm criminal legal assistant port was placed below the umbilicus. The Surgical robot was docked to the bedside cart. STEP 2; Reflecting the colon The colon was mobilized medially by dissecting along the white line of Toldt. The mobilization was carried out to expose the retroperitoneum. The psoas, gonadal and ureter were exposed. STEP 3; Ureteral Dissection The ureter was mobilized and widely dissected to preserver the vascular supply. A vessel loop was passed around the ureter for atraumatic handling. The ureter was mobilized proximally and distally. The ureter was dissected free from the gonadal and followed to the renal pelvis. A crossing vessel was observed. A high insertion of the ureter was observed. STEP 4; Ureteral Transection The ureter was transected at the level of the stenosis. The strictured area was excised and sent for pathology. The ureter was spatulated laterally. If the renal pelvis opening needed it was spatulated medially. The edges were freshened and the length was adequate for a tension free anastomosis`. STEP 5: Anastamosis Using double armed 4-0 vicryl a running watertight anastomosis was carried out, making certain to bring well vascularized mucosal edges together. The anastomoses was complete part way using both stitches, and prior to finishing this a 6fr x 26cm JJ stent was placed through the criminal legal assistant port over 0.035 glide wire. The anastomosis was then finished and did appear to be water tight. STEP 6; Wound closure Instruments were removed. A HETAL drain was placed through the left lateral robotic port. Skin was closed by subcuticular 4-0 Monocryls. The specimen was removed. Patient tolerated the procedure well. [facility] 01-19-2023 Note Formatting of this n ote might be different from the original. DOS: January 19, 2023 Pre-op Diagnosis: left UPJ obstruction Post-op Diagnosis: same Operation:left Robotic laparoscopic pyeloplasty Surgeon : Mendel Wagner M.D. Electronic [employer] Supervisor: Todd Valencia Anesthesia: General Special Consideration: Modifier Indications:Loni Turner is a 52 y.o. year-old female who was referred to ct for treatment of a UPJ obstruction. A CT scan revealed hydronephrosis. Retrograde pyelograms and ureteroscopy were performed and did reveal UPJ obstruction with high insertion and hydronephrosis. The patient was recommended to undergo pyeloplasty with da Leann surgical robot. All risks, benefits and alternatives were discussed, and all questions were answered prior to proceeding. Individual considerations: Left flank pain Procedure : Informed consent was obtained. Patient was given perioperative antibiotics and DVT prophylaxis in preop holding area. General anesthesia was administered. A Mcgowan catheter was placed. A nasogastrictube was placed by anesthesia. Patient was placed in the lateral position with left flank up . All the pressure points were padded and patient secured to the table with adhesive tapes. STEP 1; PORT PLACEMENT Pneumoperitoneum of 15 mmHg was created by placing a Veress needle below the costal margin in the left upper quadrant. Using a visiport a cannula was placed under direct vision to be used for the camera port. Three additional robotic cannulas were placed under direct vision. A 12mm criminal legal assistant port was placed below the umbilicus. The Surgical robot was docked to the bedside cart. STEP 2; Reflecting the colon The colon was mobilized medially by dissecting along the white line of Toldt. The mobilization was carried out to expose the retroperitoneum. The psoas, gonadal and ureter were exposed. STEP 3; Ureteral Dissection The ureter was mobilized and widely dissected to preserver the vascular supply. A vessel loop was passed around the ureter for atraumatic handling. The ureter was mobilized proximally and distally. The ureter was dissected free from the gonadal and followed to the renal pelvis. A crossing vessel was observed. A high insertion of the ureter was observed. STEP 4; Ureteral Transection The ureter was transected at the level of the stenosis. The strictured area was excised and sent for pathology. The ureter was spatulated laterally. If the renal pelvis opening needed it was spatulated medially. The edges were freshened and the length was adequate for a tension free anastomosis`. STEP 5: Anastamosis Using double armed 4-0 vicryl a running watertight anastomosis was carried out, making certain to bring well vascularized mucosal edges together. The anastomoses was complete part way using both stitches, and prior to finishing this a 6fr x 26cm JJ stent was placed through the criminal legal assistant port over 0.035 glide wire. The anastomosis was then finished and did appear to be water tight. STEP 6; Wound closure Instruments were removed. A HETAL drain was placed through the left lateral robotic port. Skin was closed by subcuticular 4-0 Monocryls. The specimen was removed. Patient tolerated the procedure well. [facility] [employer] 01-14-2023 Telephone encounter Note CALLED PT [phone] LVM FOR PT TO SALES RELATIONSHIP MANAGER FMLA PAPERWORK SLEEVE TAILOR [facility] 01-14-2023 Miscellaneous Notes CALLED PT [phone] LVM FOR PT TO SALES RELATIONSHIP MANAGER FMLA PAPERWORK SLEEVE TAILOR documented in this encounter [facility] 01-12-2023 Note Patient: Loni Pop or Procedure Information Date/Time: 01/19/231499 Procedure: ROBOTIC LEFT PYELOPLASTY (Abdomen) Location: [facility] OR [address] [place] [address] Operating Room Surgeons: Mendel Wagner MD Past Medical History: Past Medical History: No date: Allergies No date: Anxiety No date: Arthritis No date: COPD (chronic obstructive pulmonary disease) ([facility]) Comment: not diagnosed, patient feels that she had d/t smoking history No date: Degenerative disc disease, lumbar No date: Depression No date: Hypertension No date: Kidney stones No date: PONV (postoperative nausea and vomiting) Past Surgical History: Past Surgical History: No date: SECTION, LOW TRANSVERSE No date: COLONOSCOPY No date: HYSTERECTOMY No date: LITHOTRIPSY (HISTORICAL) Comment: x3 No date: TONSILLECTOMY Comment: adnoids No date: WISDOM TOOTH EXTRACTION Social History: TOBACCO: reports that she has been smoking cigarettes. She has a 30.00 pack-year smoking history. She has never used smokeless tobacco. ETOH: reports current alcohol use of about 7.0 standard drinks of alcohol per week. Social History Substance and Sexual Activity Drug Use Yes ? Frequency: 3.0 times per week ? Types: Marijuana Comment: smokes Family History: No family history on file. Screening: Hysterectomy Clinical information reviewed: Tobacco Allergies Meds Med Hx Surg Hx OB Status Fam Hx Soc Hx Physical Exam Airway Mallampati: I TM distance: >3 FB Neck ROM: full Mouth Open: normalendotracheal tube not in place Cardiovascular Dental (+) Missing Pulmonary Abdominal Anesthesia Plan patient is NPO appropriate Any family history or previous problems with anesthesia no ASA 2 general and regional Any family history or previous problems with anesthesia no The patient is a current smoker. Patient was previously instructed to abstain from smoking on day of procedure. Patient did not smoke on day of procedure. Anesthetic plan and risks discussed with patient. ERAS Type General ERAS possible allergy to ERAS meds IVETT Screening Labs: Lab Results Component Value Date WBC 6.0 01/07/2023 HGB 15.3 01/07/2023 HCT 44.7 01/07/2023 MCV 96.4 01/07/2023 PLT 262 01/07/2023 Lab Results Component Value Date NA 135 01/07/2023 K 3.8 01/07/2023 CL 100 01/07/2023 CO2 27 01/07/2023 BUN 11 01/07/2023 CREATININE 0.56 01/07/2023 GLUCOSE 97 01/07/2023 CALCIUM 9.2 01/07/2023 EGFR >90.0 01/07/2023 No echocardiogram results found for the past 14 days 11/15/22 ECG 12-LEAD 11/16/2022 5:03 PM (Final) Impression Sinus bradycardia Nonspecific T abnormalities, anterior leads Electronically Signed On 11-16-2022 17:03:07 EDT by Mannie Contreras Signed by: Mannie Contreras MD on 11/16/2022 5:03 PM [facility] 01-12-2023 Note Comprehensive Pre Franz rgical History and Physical ? Name: Loni Turner : 1970 (Age-52 y.o.) Date of Service: Pt seen/examined on 01/12/2023 Procedure Information Date/Time: 01/19/23 1500 Procedure: ROBOTIC LEFT PYELOPLASTY (Abdomen) Location: [facility] OR [address] [place] [address] Operating Room Surgeons: Mendel Wagner MD Chief Complaint: Unspecified hydronephrosis [N13.30] Hydronephrosis with ureteropelvic junction obstruction (CODE) [N13.0] ASSESSMENT/PLAN: Patient is considered low/intermediate risk for this intermediate level 2 risk procedure/surgery. 1) Unspecified hydronephrosis [N13.30] Hydronephrosis with ureteropelvic junction obstruction (CODE) [N13.0] - Managed per surgery - 11/15/22 EKG reviewed - 01/07/23 CBC, BMP, UA reviewed - No other orders necessary per PAT Protocol 2) HTN - Diovan BP Readings from Last 3 Encounters: 01/12/23 133/81 01/07/23 (!) 143/77 12/16/22 (!) 162/78 3) Tobacco use - Smokes 1 PPD for the past 30 years - Chronic cough, at baseline - Instructed patient to not smoke 24 hours prior to procedure Visit Type: Pre-Admission Testing Visit Labs Ordered: NO - COMPLETE PRIOR TO PAT VISIT Sleep Referral Ordered: NO - NEGATIVE SCREEN PER SLEEP REFERRAL PROTOCOL Total time spent (which include face to face and non face to face encounters) : 25 minutes Toxic drug monitoring/narrow therapeutic index drug monitoring : # Drug name : Diovan # Route administered : oral # Method of monitoring : N/A - lab work already complete PAT Protocol referenced includes: 1. Anesthesia Lab Protocol Orders 2. Perioperative Cardiovascular Risk Assessment 3. Anesthesia Assessment 4. Pain Assessment and Acute Pain Service Consult (if appropriate) 5. Medical Clearance/Consult from Internal Medicine ([facility]) 6. Shower/Wash Order (for designated surgeries) 7. IVETT Screen and Sleep Clinic Referral (if appropriate) _ History Of Present Illness: 52 y.o. female who we are asked to see/evaluate by Dr. Wagner for pre-operative evaluation prior to the above procedure. OV with Dr. Wagner on 11/24/22 Ms. Turner is a 52 y.o. female who presents to the office for follow up of UPJ obstruction She has had intermittent and progressive hydronephrosis for the last 5 years She had cystoscopy, ureteroscopy and stent with Dr Grajeda ? Denies history of NC, CAD, CHF, TIA, CVA Past Medical History: Past Medical History: No date: Allergies No date: Anxiety No date: Arthritis No date: COPD (chronic obstructive pulmonary disease) (HCC) Comment: not diagnosed, patient feels that she had d/t smoking history No date: Degenerative disc disease, lumbar No date: Depression No date: Hypertension No date: Kidney stones No date: PONV (postoperative nausea and vomiting) Past Surgical History: Past Surgical History: No date: SECTION, LOW TRANSVERSE No date: COLONOSCOPY No date: HYSTERECTOMY No date: LITHOTRIPSY (HISTORICAL) Comment: x3 No date: TONSILLECTOMY Comment: adnoids No date: WISDOM TOOTH EXTRACTION Medications Prior to Admission: Prior to Admission medications Medication Sig Start Date End Date Taking? Authorizing Provider acetaminophen (Tylenol) 500 MG tablet Take 1,000 mg by mouth. 03/04/22 Historical Provider, EPINEPHrine (Epipen) 0.3 MG/0.3ML injection syringe INJECT 0.3 MG SUBCUTANEOUSLY ONCE 06/14/22 Historical Provider, escitalopram (Lexapro) 20 MG tablet Take 20 mg by mouth daily. 10/12/22 Historical Provider, fluticasone (Flonase Allergy Relief) 50 MCG/ACT nasal spray Dose = 1 spray(s), Nostril, each, qDay, 0 Refill(s) 03/04/22 Historical Provider, ibuprofen 200 MG tablet Take 400 mg by mouth. 03/04/22 Historical Provider, valsartan-hydroCHLOROthiazide (Diovan-HCT) 320-12.5 MG tablet Take 1 tablet by mouth daily. 10/12/22 Historical Provider, CHRONIC NARCOTIC USE: No Allergies: Red dye #40 [red dye]; Midland oil; Diclofenac; Egg solids, whole; Food; Hydrocodone; Other; Penicillins; Pollen extract; and Shellfish allergy If patient has opioid allergy, is it okay to take Acetaminophen: Yes Social History: TOBACCO: reports that she has been smoking cigarettes. She has a 30.00 pack-year smoking history. She has never used smokeless tobacco. ETOH: reports current alcohol use of about 7.0 standard drinks of alcohol per week. Social History Substance and Sexual Activity Drug Use Yes Frequency: 3.0 times per week Types: Marijuana Comment: smokes Family History: No family history on file. REVIEW OF SYSTEMS: Review of Systems Constitutional: Negative for fatigue and fever. HENT: Negative for congestion. Respiratory: Positive for cough. Negative for chest tightness and shortness of breath. Chronic Cardiovascular: Negative for chest pain and palpitations. Gastrointestinal: Negative for diarrhea and vomiting. Mu (more content not included)... [facility] 01-12-2023 Note Comprehensive Pre Franz rgical History and Physical ? Name: Loni Turner : 1970 (Age-52 y.o.) Date of Service: Pt seen/examined on 01/12/2023 Procedure Information Date/Time: 01/19/23 1500 Procedure: ROBOTIC LEFT PYELOPLASTY (Abdomen) Location: [facility] OR [address] [place] [address] Operating Room Surgeons: Mendel Wagner MD Chief Complaint: Unspecified hydronephrosis [N13.30] Hydronephrosis with ureteropelvic junction obstruction (CODE) [N13.0] ASSESSMENT/PLAN: Patient is considered low/intermediate risk for this intermediate level 2 risk procedure/surgery. 1) Unspecified hydronephrosis [N13.30] Hydronephrosis with ureteropelvic junction obstruction (CODE) [N13.0] - Managed per surgery - 11/15/22 EKG reviewed - 01/07/23 CBC, BMP, UA reviewed - No other orders necessary per PAT Protocol 2) HTN - Diovan BP Readings from Last 3 Encounters: 01/12/23 133/81 01/07/23 (!) 143/77 12/16/22 (!) 162/78 3) Tobacco use - Smokes 1 PPD for the past 30 years - Chronic cough, at baseline - Instructed patient to not smoke 24 hours prior to procedure Visit Type: Pre-Admission Testing Visit Labs Ordered: NO - COMPLETE PRIOR TO PAT VISIT Sleep Referral Ordered: NO - NEGATIVE SCREEN PER SLEEP REFERRAL PROTOCOL Total time spent (which include face to face and non face to face encounters) : 25 minutes Toxic drug monitoring/narrow therapeutic index drug monitoring : # Drug name : Diovan # Route administered : oral # Method of monitoring : N/A - lab work already complete PAT Protocol referenced includes: 1. Anesthesia Lab Protocol Orders 2. Perioperative Cardiovascular Risk Assessment 3. Anesthesia Assessment 4. Pain Assessment and Acute Pain Service Consult (if appropriate) 5. Medical Clearance/Consult from Internal Medicine ([facility]) 6. Shower/Wash Order (for designated surgeries) 7. IVETT Screen and Sleep Clinic Referral (if appropriate) _ History Of Present Illness: 52 y.o. female who we are asked to see/evaluate by Dr. Wagner for pre-operative evaluation prior to the above procedure. OV with Dr. Wagner on 11/24/22 Ms. Turner is a 52 y.o. female who presents to the office for follow up of UPJ obstruction She has had intermittent and progressive hydronephrosis for the last 5 years She had cystoscopy, ureteroscopy and stent with Dr Grajeda ? Denies history of NC, CAD, CHF, TIA, CVA Past Medical History: Past Medical History: No date: Allergies No date: Anxiety No date: Arthritis No date: COPD (chronic obstructive pulmonary disease) (HCC) Comment: not diagnosed, patient feels that she had d/t smoking history No date: Degenerative disc disease, lumbar No date: Depression No date: Hypertension No date: Kidney stones No date: PONV (postoperative nausea and vomiting) Past Surgical History: Past Surgical History: No date: SECTION, LOW TRANSVERSE No date: COLONOSCOPY No date: HYSTERECTOMY No date: LITHOTRIPSY (HISTORICAL) Comment: x3 No date: TONSILLECTOMY Comment: adnoids No date: WISDOM TOOTH EXTRACTION Medications Prior to Admission: Prior to Admission medications Medication Sig Start Date End Date Taking? Authorizing Provider acetaminophen (Tylenol) 500 MG tablet Take 1,000 mg by mouth. 03/04/22 Historical Provider, EPINEPHrine (Epipen) 0.3 MG/0.3ML injection syringe INJECT 0.3 MG SUBCUTANEOUSLY ONCE 06/14/22 Historical Provider, escitalopram (Lexapro) 20 MG tablet Take 20 mg by mouth daily. 10/12/22 Historical Provider, fluticasone (Flonase Allergy Relief) 50 MCG/ACT nasal spray Dose = 1 spray(s), Nostril, each, qDay, 0 Refill(s) 03/04/22 Historical Provider, ibuprofen 200 MG tablet Take 400 mg by mouth. 03/04/22 Historical Provider, valsartan-hydroCHLOROthiazide (Diovan-HCT) 320-12.5 MG tablet Take 1 tablet by mouth daily. 10/12/22 Historical Provider, CHRONIC NARCOTIC USE: No Allergies: Red dye #40 [red dye]; Midland oil; Diclofenac; Egg solids, whole; Food; Hydrocodone; Other; Penicillins; Pollen extract; and Shellfish allergy If patient has opioid allergy, is it okay to take Acetaminophen: Yes Social History: TOBACCO: reports that she has been smoking cigarettes. She has a 30.00 pack-year smoking history. She has never used smokeless tobacco. ETOH: reports current alcohol use of about 7.0 standard drinks of alcohol per week. Social History Substance and Sexual Activity Drug Use Yes Frequency: 3.0 times per week Types: Marijuana Comment: smokes Family History: No family history on file. REVIEW OF SYSTEMS: Review of Systems Constitutional: Negative for fatigue and fever. HENT: Negative for congestion. Respiratory: Positive for cough. Negative for chest tightness and shortness of breath. Chronic Cardiovascular: Negative for chest pain and palpitations. Gastrointestinal: Negative for diarrhea and vomiting. Mu (more content not included)... [facility] 01-07-2023 Emergency department Note Answered pt's call light. Pt requested IV too be removed and pt states she wants to leave because she has been waiting over [address] scan. Pt encouraged to stay for full medical screening exam but pt declined. Pt ambulated out of ED with steady and even gait. No distress noted. Pt A&Ox4. Alissa Bowman RN 01/07/23 0597 Alissa Bowman RN 01/07/23 2832 [facility] 01-07-2023 Emergency department Note Answered pt's call light. Pt requested IV too be removed and pt states she wants to leave because she has been waiting over [address] scan. Pt encouraged to stay for full medical screening exam but pt declined. Pt ambulated out of ED with steady and even gait. No distress noted. Pt A&Ox4. Alissa Bowman RN 01/07/23 1529 Alissa Bowman RN 01/07/23 1531 Report from VADIM Veliz. Alissa Bowman RN 01/07/23 1311 Emergency Department Encounter [facility] EMERGENCY DEPT Patient: Loni Turner : 1970 Date of Evaluation: 01/07/2023 ED Provider: Lyubov Hammond DO I saw the patient as the Clinician in Triage and performed a brief history and physical exam, established acuity, and ordered appropriate tests to develop basic plan of care. Patient will be seen by JEANNETTE, resident and/or my physician partner who will evaluate the patient. I wore appropriate PPE for the entirety of this encounter. Brief HPI: In brief, Loni Turner is a 52 y.o. that presents with chief complaint of left-sided flank pain. The patient is being managed by Dr. Wagner. Was having pain and vomiting and came to the ED per their instructions.. Focused Physical exam: Awake alert speaking in full clear sentences, heart lung exams normal. Plan/MDM: At this time we did obtain lab work consisting of a BMP which was relatively unremarkable CBC is normal, UA was negative. We ordered a CT scan for the patient however at this time she states she is waited long enough, does not want to wait any longer and has elected to leave. (Comment: Please note this report has been produced using speech recognition software and may contain errors related to that system including errors in grammar, punctuation, and spelling as well as words and phrases that may be inappropriate. If there are any questions or concerns please feel free to contact the dictating provider for clarification) Lyubov Hammond DO [employer] Lyubov Hammond DO 01/07/23 1539 Bed: 07 Expected date: Expected time: Means of arrival: Comments: Triage Anh Vazquez RN 01/07/23 0931 documented in this encounter [facility] 01-07-2023 Emergency department Note Report from VADIM Veliz. Alissa Bowman RN 01/07/23 1311 [facility] 01-07-2023 Emergency department Note Bed: 07 Expected date: Expected time: Means of arrival: Comments: Triage Anh Vazquez RN 01/07/2331 [facility] 01-07-2023 Physician Emergency department Note Emergency Department Encounter [facility] EMERGENCY DEPT Patient: Loni Turner : 1970 Date of Evaluation: 01/07/2023 ED Provider: Lyubov Hammond DO I saw the patient as the Clinician in Triage and performed a brief history and physical exam, established acuity, and ordered appropriate tests to develop basic plan of care. Patient will be seen by JEANNETTE, resident and/or my physician partner who will evaluate the patient. I wore appropriate PPE for the entirety of this encounter. Brief HPI: In brief, Loni Turner is a 52 y.o. that presents with chief complaint of left-sided flank pain. The patient is being managed by Dr. Wagner. Was having pain and vomiting and came to the ED per their instructions.. Focused Physical exam: Awake alert speaking in full clear sentences, heart lung exams normal. Plan/MDM: At this time we did obtain lab work consisting of a BMP which was relatively unremarkable CBC is normal, UA was negative. We ordered a CT scan for the patient however at this time she states she is waited long enough, does not want to wait any longer and has elected to leave. (Comment: Please note this report has been produced using speech recognition software and may contain errors related to that system including errors in grammar, punctuation, and spelling as well as words and phrases that may be inappropriate. If there are any questions or concerns please feel free to contact the dictating provider for clarification) Lyubov Hammond DO [employer] Lyubov Hammond DO 01/07/23 1539 [facility] 12-16-2022 History of Present illness Narrative [facility] [address] [place] [phone] 12/16/2022 at 1:35 PM Urology Office Visit - Procedure Cystoscopy and Ureteral Stent Removal Procedure Note Pre-operative Diagnosis: Hydronephrosis of left kidney [N13.30] Post-operative Diagnosis: same Provider: Mannie Braxton DNP, STEM THRESHING MACHINE OPERATOR Assistants: Karina Pacheco RN Anesthesia: Local anesthesia topical 2% lidocaine gel 11/18/2022: S/p cystoscopy, left retrograde pyelogram, left ureteroscopy, left ureteral stent placement by Geovanny Grajeda MD. A left ureteropelvic junction narrowing was noted intraoperatively; no masses or filling defects noted. Procedure Details: The risks, benefits, complications, treatment options, and expected outcomes were discussed with the patient. The patient concurred with the proposed plan, giving informed consent. A female nurse/launch operator was present for the entire procedure. Cystoscopy was performed without incident. The patient was prepped with Betadine, and draped in the usual sterile fashion. Lidocaine jelly was instilled into the urethra to effect local anesthesia. The sheathed digital flexible cystoscope was passed into the bladder without incident. The stent was identified, grasped, and extracted intact. The scope was withdrawn. Complications: None; patient tolerated the procedure well. Plan: Diagnoses and all orders for this visit: Hydronephrosis of left kidney Obstruction of left ureteropelvic junction (UPJ) Encounter for removal of ureteral stent - sulfamethoxazole-trimethoprim (Bactrim DS) 800-160 MG per tablet 1 tablet Advised patient that with ureteral stent removal, flank pain can occur from spasm. Okay to use over the counter Ibuprofen and/or Tylenol as needed for pain. Okay to continue using Oxybutynin for irritative voiding symptoms (urinary frequency, urinary urgency, and/or urge urinary incontinence). The patient was instructed to push fluids for the next few days. F/u as scheduled for robotic assisted laparoscopic LEFT pyeloplasty with Dr. Wagner. Reiterated to patient that if significant pain develops after stent removal, would recommend placement of nephrostomy tube in preparation for surgery. Follow Up: No follow-ups on file. --Mannie Braxton DNP, VIANEY on 12/16/2022 at 1:35 PM An electronic signature was used to authenticate this note. Patient here for cystoscopy and stent removal. Patient prepped with betadine and urojet x1. Patient given Bactrim DS as prophylactic procedure antibiotic, see MAR. Patient tolerated procedure well. UROJET 6 ML [facility] [id number] LOT # [id number] S1 EXPIRES 12/2024 Administered by VADIM Collins Pt tolerated well documented in this encounter [facility] 12-16-2022 Instructions VIANEY Li CNP - 12/16/2022 2:00 PM EDT [facility] [address] [facility] [address] [facility] [id number] [facility] Urology Office Cystoscopy and Ureteral Stent Removal Discharge Instructions Common symptoms you may experience : - Burning sensation when you void - A feeling of a need to go to the bathroom frequently - Your urine may be blood tinged - Aching/spasms pain to your side These symptoms should be relieved within a few hours to a day after your procedure as you increase the amounts of fluids you drink and the number of times that you empty your bladder. We recommended that you drink plenty of fluid a few days after procedure. No strenuous activities for the next 24-48 hours. You can also use heating pain to your side in 15 minute intervals as needed for discomfort in addition to over the counter Tylenol (Acetaminophen) or Ibuprofen/Naprosyn as needed for any discomfort. If you are unable to urinate or develop fever/chills, you should call our office. If after clinic hours, go to the nearest emergency department. Mannie Braxton DNP, VIANEY [facility] Urology Office: documented in this encounter [facility] 11-30-2022 Telephone encounter Note LVM for pt in great detail Pt is scheduled for PAT/Surgery with Dr. Wagner @ [place] [address] [address] PAT: 01/12/23 @ 2 PM ARRIVE @ 1:30 PM No Prep Surgery: 01/19/23 @ 2:30 PM ARRIVE @ 12:30 PM Booklet Mailed Follow up made [facility] 11-30-2022 Miscellaneous Notes LVM for pt in great detail Pt is scheduled for PAT/Surgery with Dr. Wagner @ [place] [address] [address] [place] PAT: 01/12/23 @ 2 PM ARRIVE @ 1:30 PM No Prep Surgery: 01/19/23 @ 2:30 PM ARRIVE @ 12:30 PM Booklet Mailed Follow up made ----- Message from Mendel Wagner MD sent at 11/24/2022 2:00 PM EDT ----- Robotic left pyelopasty around 1 mo after cysto stent removal appointment documented in this encounter [facility] 11-30-2022 Telephone encounter Note ----- Message from Mendel Wagner MD sent at 11/24/2022 2:00 PM EDT ----- Robotic left pyelopasty around 1 mo after cysto stent removal appointment [facility] 11-24-2022 History of Present illness Narrative Images from the original note were not included. Mendel Wagner MD 11/24/2022 at 2:00 PM Office follow up PATIENT NAME: Loni Turner DATE OF : 1970 TODAY'S DATE: 11/24/2022 CHIEF COMPLAINT: Chief Complaint Patient presents with Other Discuss UPJ repair Subjective: Ms. Turner is a 52 y.o. female who presents to the office for follow up of UPJ obstruction She has had intermittent and progressive hydronephrosis for the last 5 years She had cystoscopy, ureteroscopy and stent with Dr Grajeda Review of Systems Constitutional: Negative for activity change, chills, fatigue and fever. Gastrointestinal: Negative for abdominal distention and abdominal pain. Genitourinary: Positive for flank pain. Negative for difficulty urinating and hematuria. Past Medical History: Past Medical History: Diagnosis Date Allergies Anxiety Arthritis Degenerative disc disease, lumbar Depression Hypertension Kidney stones PONV (postoperative nausea and vomiting) Past Surgical History: Past Surgical History: Procedure Laterality Date SECTION, LOW TRANSVERSE COLONOSCOPY HYSTERECTOMY LITHOTRIPSY (HISTORICAL) x3 TONSILLECTOMY adnoids WISDOM TOOTH EXTRACTION Allergies: Red dye #40 [red dye]; [place] oil; Diclofenac; Egg solids, whole; Food; Hydrocodone; Penicillins; Pollen extract; and Shellfish allergy Social History: Social History Socioeconomic History Marital status: Single Spouse name: Not on file Number of children: Not on file Years of education: Not on file Highest education level: Not on file Occupational History Not on file Tobacco Use Smoking status: Every Day Packs/day: 1.00 Years: 30.00 Pack years: 30.00 Types: Cigarettes Smokeless tobacco: Never Vaping Use Vaping Use: Never used Substance and Sexual Activity Alcohol use: Yes Alcohol/week: 7.0 standard drinks of alcohol Types: 7 Cans of beer per week Drug use: Yes Frequency: 3.0 times per week Types: Marijuana Sexual activity: Not on file Other Topics Concern Not on file Social History Narrative Not on file Social Determinants of Health Financial Resource Strain: Not on file Food Insecurity: Not on file Transportation Needs: Not on file Physical Activity: Not on file Stress: Not on file Social Connections: Not on file Intimate Partner Violence: Not on file Housing Stability: Not on file Family History: Medications Prior to Admission medications Medication Sig Start Date End Date Taking? Authorizing Provider acetaminophen (Tylenol) 500 MG tablet Take 1,000 mg by mouth. 03/04/22 Yes Historical Provider, EPINEPHrine (Epipen) 0.3 MG/0.3ML injection syringe INJECT 0.3 MG SUBCUTANEOUSLY ONCE 06/14/22 Yes Historical Provider, escitalopram (Lexapro) 20 MG tablet Take 20 mg by mouth daily. 10/12/22 Yes Historical Provider, fluticasone (Flonase Allergy Relief) 50 MCG/ACT nasal spray Dose = 1 spray(s), Nostril, each, qDay, 0 Refill(s) 03/04/22 Yes Historical Provider, ibuprofen 200 MG tablet Take 400 mg by mouth. 03/04/22 Yes Historical Provider, oxybutynin XL (Ditropan-XL) 10 MG 24 hr tablet Take 1 tablet (10 mg) by mouth daily. Do not crush, chew, or split. 11/22/22 12/22/22 Yes VIANEY Jenkins CNP tamsulosin (Flomax) 0.4 MG 24 hr capsule Take 1 capsule (0.4 mg) by mouth daily for 10 days. 11/18/22 11/28/22 Yes Jose Luis Antoine MD valsartan-hydroCHLOROthiazide (Diovan-HCT) 320-12.5 MG tablet Take 1 tablet by mouth daily. 10/12/22 Yes Historical Provider, cephalexin (Keflex) 500 MG capsule Take 1 capsule (500 mg) by mouth 2 times daily for 3 days. 11/18/22 11/21/22 Jose Luis Antoine MD phenazopyridine (Pyridium) 200 MG tablet Take 1 tablet (200 mg) by mouth 3 times daily as needed for bladder spasms (and dysuria) for up to 3 days. Patient not taking: Reported on 11/24/2022 11/22/22 11/25/22 Dariana Lowe, STEM THRESHING MACHINE OPERATOR - ROLLING MACHINE OPERATOR AUTOMATIC cyclobenzaprine (Flexeril) 5 MG tablet TAKE 1 TABLET BY MOUTH THREE TIMES A DAY FOR 7 DAYS NEEDED FOR MUSLCE SPAMS 07/26/22 11/18/22 Historical Provider, methylPREDNISolone (Medrol Dospak) 4 MG tablets TAKE 6 TABLETS ON DAY 1 DIRECTED ON PACKAGE AND DECREASE BY 1 TAB EACH DAY FOR A TOTAL OF 6 DAYS 08/09/22 11/18/22 Historical Provider, phenazopyridine (Pyridium) 200 MG tablet Take 1 tablet (200 mg) by mouth 3 times daily as needed for bladder spasms (and dysuria) for up to 3 days. 11/18/22 11/22/22 Jose Luis Antoine MD triamcinolone (Kenalog) 0.1 % cream APPLY TO AFFECTED AREA TWICE A DAY FOR 14 DAYS 08/09/22 11/18/22 Historical Provider, Vitals: There were no vitals taken for this visit. Physical Exam General: alert, appears stated age, and cooperative Abdomen: soft and nondistended Back: straight, CVA tenderness absent : defer exam Labs: WBC No results found for: WBC BMP Lab Results Component Value Date NA 136 11/15/2022 K 3.6 11/15/2022 CL 98 11/15/2022 CO2 32 (H) 11/15/2022 BUN 11 11/15/2022 CREATININE 0.66 11/15/2022 GLUCOSE 94 11/15/2022 CALCIUM 8.9 11/15/2022 PSA No results found for: PSA UA Lab Results Component Value Date UROBILINOGEN 0.2 11/08/2022 BILIRUBINUR Negative 11/08/2022 Review: I had a long discussion with the patient regarding the diagnosis of UPJ obstruction. I discussed the treatment options including Stent, endopyelotomy both antegrade and retrograde and pyeloplasty. I discussed the risks, benefits and alternatives of each of the above listed options at length. Regarding pyeloplasty I did advise that I would recommend performing this in a robotic laparoscopic fashion. I advised there is a chance a total nephrectomy would be needed if problems were encountered. There is risk of injury to surrounding abdominal contents. I explained that after pyeloplasty there is a chance of recurrent stricture and possible need for future nephrectomy. I would leave a stent in for at least 6 weeks. Patient wishes to proceed forward with surgery. Impression/Plan Diagnoses and all orders for this visit: Hydronephrosis, unspecified hydronephrosis type Acquired hydronephrosis with ureteropelvic junction (UPJ) obstruction Flank pain Left hydronephrosis with obstruction from UPJ UPJ appears due to high ureteral insertion Will plan for cysto stent removal, then robotic pyeloplasty 1 mo later If pain would develop or return after stent removal, consider nephrostomy tube Follow up for schedule surgery. Mendel Wagner MD 11/24/22 2:00 PM documented in this encounter [facility] 11-23-2022 Note . MICRO - Microbiology PROCEDURE: Urine Culture [*1] SOURCE: Urine, Clean Catch BODY SITE: COLLECTED DATE/TIME: 11/22/2022 16:27 EDT RECEIVED DATE/TIME: 11/22/2022 19:58 EDT START DATE/TIME: 11/22/2022 19:58 EDT FREE TEXT SOURCE: FINAL REPORTS Final Report [] Verified Date/Time/Personnel: 11/23/2022 14:34 EDT <10,000 cfu/ml. No Significant growth. Sensitivity not indicated. Performing Locations *1: This test was performed at: [address], [address] , [facility] ([place]) 11-21-2022 Telephone encounter Note error [facility] 11-21-2022 Miscellaneous Notes error documented in this encounter [facility] 11-21-2022 Telephone encounter Note duplicate [facility] 11-21-2022 Miscellaneous Notes duplicate documented in this encounter [facility] 11-19-2022 Telephone encounter Note Pt agrees to d/t/l for appt with Dr. Wagner on 11/24/22 in [place]. [facility] 11-19-2022 Miscellaneous Notes Pt agrees to d/t/l for appt with Dr. Wagner on 11/24/22 in [place]. She had ureteroscopy and stent placement. She has a UPJ obstruction. She does have a stent which needs to stay in. She needs an appointment with Dr. Wagner or Dr. Amor to discuss UPJ repair. documented in this encounter [facility] 11-18-2022 Note Pt. walked to and fr bathroom, tolerated well, voided. Discharge instructions reviewed with pt, verbalized understanding of discharge teaching. [facility] 11-18-2022 Note Patient: Loni Pop or Procedure Summary Date: 11/18/22 Room / Location: [address] Operating Room Anesthesia Start: 1304 Anesthesia Stop: 1340 Procedures: CYSTOSCOPY RETROGRADE PYELOGRAM, LEFT URETEROSCOPY, POSSIBLE HOLMIUM LASER LITHOTRIPSY, LEFT URETERAL STENT PLACEMENT (Urethra) CYSTOSCOPY WITH URETEROSCOPY AND OR PYELOSCOPY DIAGNOSTIC (Urethra) CYSTOSCOPY WITH INSERTION URETERAL STENT (Urethra) CYSTOSCOPY WITH URETEROSCOPY AND OR PYELOSCOPY WITH REMOVAL OR MANIPULATION CALCULUS WITH LITHOTRIPSY (Urethra) Diagnosis: Unspecified hydronephrosis (Unspecified hydronephrosis [N13.30]) Surgeons: Geovanny Grajeda MD Responsible Provider: Shane Zamudio MD Anesthesia Type: general ASA Status: 2 Anesthesia Type: general Vitals Value Taken Time BP 96/55 11/18/22 1340 Temp 36.7 ?C (98.1 ?F) 11/18/22 1340 Pulse 62 11/18/22 1340 Resp 16 11/18/22 1340 SpO2 95 % 11/18/22 1340 Anesthesia Post Evaluation Patient location during evaluation: PACU Patient participation: waiting for patient participation Level of consciousness: sleepy but conscious Pain management: satisfactory to patient Airway patency: patent Dental Injury: no Cardiovascular status: acceptable, blood pressure returned to baseline and hemodynamically stable Respiratory status: acceptable, spontaneous ventilation, face mask and oral airway Hydration status: euvolemic Nausea/Vomiting: controlled No notable events documented. Patient can be discharged once all PACU criteria has been met. [facility] 11-18-2022 Note Patient: Loni Pop or Procedure Summary Date: 11/18/22 Room / Location: [address] Operating Room Anesthesia Start: 1304 Anesthesia Stop: 1340 Procedures: CYSTOSCOPY RETROGRADE PYELOGRAM, LEFT URETEROSCOPY, POSSIBLE HOLMIUM LASER LITHOTRIPSY, LEFT URETERAL STENT PLACEMENT (Urethra) CYSTOSCOPY WITH URETEROSCOPY AND OR PYELOSCOPY DIAGNOSTIC (Urethra) CYSTOSCOPY WITH INSERTION URETERAL STENT (Urethra) CYSTOSCOPY WITH URETEROSCOPY AND OR PYELOSCOPY WITH REMOVAL OR MANIPULATION CALCULUS WITH LITHOTRIPSY (Urethra) Diagnosis: Unspecified hydronephrosis (Unspecified hydronephrosis [N13.30]) Surgeons: Geovanny Grajeda MD Responsible Provider: Shane Zamudio MD Anesthesia Type: general ASA Status: 2 Anesthesia Type: general Vitals Value Taken Time BP 96/55 11/18/22 1340 Temp 36.7 ?C (98.1 ?F) 11/18/22 1340 Pulse 62 11/18/22 1340 Resp 16 11/18/22 1340 SpO2 95 % 11/18/22 1340 Anesthesia Post Evaluation Patient location during evaluation: PACU Patient participation: waiting for patient participation Level of consciousness: sleepy but conscious Pain management: satisfactory to patient Multimodal analgesia pain management approach Airway patency: patent Two or more strategies used to mitigate risk of obstructive sleep apnea Cardiovascular status: acceptable and hemodynamically stable Respiratory status: acceptable, face mask and oral airway Hydration status: acceptable No notable events documented. MIPS #430 PONV Patient received an inhalational anesthetic (4554F) Patient exhibits three or more risk factors for PONV (4556F) Patient received at leaset 2 prophylactic Rx PONV anti-emtic agents of different classes preop and/or intraop (G9775) MIPS # 424 Perioperative Temperature Management Anesthesia time was less than 60 minutes (4256F) MIPS #477 Multimodal Pain Management Not emergent case Patient was administered multimodal pain management (two or more drugs and/or interventions excluding systemic opioids) in the periopeartive period occurring at some time between 6 hours prior to anesthesia start time until discharged from PACU (G2148) MIPS #404 Anesthesiology Smoking Abstinence The patient is not a current smoker (e.g. cigarette, cigar, pipe, e-cigarette/vaping/marijuana) If no stop here (G9644) I completed my handoff to the receiving clinician during which we: 1. Identified the patient 2. Identified the responsible provider 3. Reviewed the pertinent medical history 4. Discussed the surgical course 5. Reviewed intra-op anesthesia management and issues during anesthesia 6. Set expectations for post-procedure period 7. Allowed opportunity for questions and acknowledgement of understanding. [facility] 11-18-2022 Miscellaneous Notes Pt. walked to and from bathroom, tolerated well, voided. Discharge instructions reviewed with pt, verbalized understanding of discharge teaching. 1410- Pt awake, oral airway d/c'd 1412- Patient family/visitor updated by RN at this time. [employer] Images from the original note were not included. Geovanny Grajeda MD 11/18/2022 at 3:00 PM UROLOGY OPERATIVE REPORT PATIENT NAME: Loni Turner DATE OF : 1970 TODAY'S DATE: 11/18/2022 PreOp Dx left hydronephrosis PostOp Dx Same Operation : Cystoscopy retrograde pyelogram left ureteroscopy left stent placement Surgeon Geovanny Grajeda MD Assist Jose Luis Antoine EBL Minimal Drains 6 fr X 26cmJJ Mcgowan Specimen Condition To PACU Findings: -Normal bladder mucosa -Normal ureter -Narrowing at the UPJ on retrograde pyelogram, no filling defects, no masses -Normal ureteroscopy of the ureter. Narrowing at the left UPJ -6 x 26 stent placed Loni Turner is a 52 y.o. female who presents with left hydronephrosis. Lasix renal scan shows T1 half over 20 minutes on the left side. Plan for nephrosis. . After having a discussion on treatment options, risks and benefits, the patient wishes to proceed forward with surgical intervention Patient was brought to the operating room. A thorough time out was performed and everyone present was in agreement. Patient was placed on OR table. Anesthesia and lines were maintained by the anesthesia team. Patient was placed in the dorsal lithotomy position. Prepped and draped in usual fashion. Pressure points were padded. A cystourethroscope was inserted through the urethra and the bladder was inspected. Retrograde pyelograms were performed under fluoroscopic visualization on the left side. A guide wire was advanced to the level of the kidney. Diagnostic ureteroscopy was performed using the 6.9 Danish semirigid ureteroscope. The scope was advanced along the wire and the ureter was inspected in its entirety up to the renal pelvis. The stent was advanced over the wire through the cystoscope under fluoroscopic visualization. Once in position the wire was removed. A good curl was noted in the kidney and the bladder. The bladder was emptied and patient awoken from anesthesia. Geovanny Grajeda MD 11/18/22 3:00 PM documented in this encounter [facility] 11-18-2022 Note Formatting of this n ote might be different from the original. Pt. walked to and from bathroom, tolerated well, voided. Discharge instructions reviewed with pt, verbalized understanding of discharge teaching. [facility] 11-18-2022 Note Formatting of this n ote might be different from the original. Pt. walked to and from bathroom, tolerated well, voided. Discharge instructions reviewed with pt, verbalized understanding of discharge teaching. [facility] 11-18-2022 Note Airway Date/Time: 11/18/2022 1:13 PM Urgency: scheduled Airway not difficult General Information and Staff Patient location during procedure: Procedural Resident/SUPERVISOR CELLARS: VIANEY Webster CRNA Performed: SUPERVISOR CELLARS Performed by: VIANEY Webster CRNA Authorized by: VIANEY Webster CRNA Indications and Patient Condition Indications for airway management: anesthesia and airway protection Sedation level: Asleep Preoxygenated: yes Patient position: sniffing Mask difficulty assessment: 1 - vent by mask Final Airway Details Final airway type: supraglottic airway Successful airway: Igel Size 4 Number of attempts at approach: 1 Ventilation between attempts: [facility] 11-18-2022 Telephone encounter Note She had ureteroscopy and stent placement. She has a UPJ obstruction. She does have a stent which needs to stay in. She needs an appointment with Dr. Wagner or Dr. Amor to discuss UPJ repair. [employer] Work Phone: 11-18-2022 Note Formatting of this n ote might be different from the original. 1410- Pt awake, oral airway d/c'd 1412- Patient family/visitor updated by RN at this time. [employer] [facility] 11-18-2022 Note Formatting of this n ote might be different from the original. 1410- Pt awake, oral airway d/c'd 1412- Patient family/visitor updated by RN at this time. [employer] [facility] 11-18-2022 Note Formatting of this n ote might be different from the original. Images from the original note were not included. Geovanny Grajeda MD 11/18/2022 at 3:00 PM UROLOGY OPERATIVE REPORT PATIENT NAME: Loni Turner DATE OF : 1970 TODAY'S DATE: 11/18/2022 PreOp Dx left hydronephrosis PostOp Dx Same Operation : Cystoscopy retrograde pyelogram left ureteroscopy left stent placement Surgeon Geovanny Grajeda MD Assist [facility] EBL Minimal Drains 6 fr X 26cmJJ Mcgowan Specimen Condition To PACU Findings: -Normal bladder mucosa -Normal ureter -Narrowing at the UPJ on retrograde pyelogram, no filling defects, no masses -Normal ureteroscopy of the ureter. Narrowing at the left UPJ -6 x 26 stent placed Loni Turner is a 52 y.o. female who presents with left hydronephrosis. Lasix renal scan shows T1 half over 20 minutes on the left side. Plan for nephrosis. . After having a discussion on treatment options, risks and benefits, the patient wishes to proceed forward with surgical intervention Patient was brought to the operating room. A thorough time out was performed and everyone present was in agreement. Patient was placed on OR table. Anesthesia and lines were maintained by the anesthesia team. Patient was placed in the dorsal lithotomy position. Prepped and draped in usual fashion. Pressure points were padded. A cystourethroscope was inserted through the urethra and the bladder was inspected. Retrograde pyelograms were performed under fluoroscopic visualization on the left side. A guide wire was advanced to the level of the kidney. Diagnostic ureteroscopy was performed using the 6.9 Danish semirigid ureteroscope. The scope was advanced along the wire and the ureter was inspected in its entirety up to the renal pelvis. The stent was advanced over the wire through the cystoscope under fluoroscopic visualization. Once in position the wire was removed. A good curl was noted in the kidney and the bladder. The bladder was emptied and patient awoken from anesthesia. Geovanny Grajeda MD 11/18/22 3:00 PM [facility] 11-18-2022 Note Formatting of this n ote might be different from the original. Images from the original note were not included. Geovanny Grajeda MD 11/18/2022 at 3:00 PM UROLOGY OPERATIVE REPORT PATIENT NAME: Loni Turner DATE OF : 1970 TODAY'S DATE: 11/18/2022 PreOp Dx left hydronephrosis PostOp Dx Same Operation : Cystoscopy retrograde pyelogram left ureteroscopy left stent placement Surgeon Geovanny Grajeda MD Assist [facility] EBL Minimal Drains 6 fr X 26cmJJ Mcgowan Specimen Condition To PACU Findings: -Normal bladder mucosa -Normal ureter -Narrowing at the UPJ on retrograde pyelogram, no filling defects, no masses -Normal ureteroscopy of the ureter. Narrowing at the left UPJ -6 x 26 stent placed Loni Turner is a 52 y.o. female who presents with left hydronephrosis. Lasix renal scan shows T1 half over 20 minutes on the left side. Plan for nephrosis. . After having a discussion on treatment options, risks and benefits, the patient wishes to proceed forward with surgical intervention Patient was brought to the operating room. A thorough time out was performed and everyone present was in agreement. Patient was placed on OR table. Anesthesia and lines were maintained by the anesthesia team. Patient was placed in the dorsal lithotomy position. Prepped and draped in usual fashion. Pressure points were padded. A cystourethroscope was inserted through the urethra and the bladder was inspected. Retrograde pyelograms were performed under fluoroscopic visualization on the left side. A guide wire was advanced to the level of the kidney. Diagnostic ureteroscopy was performed using the 6.9 Danish semirigid ureteroscope. The scope was advanced along the wire and the ureter was inspected in its entirety up to the renal pelvis. The stent was advanced over the wire through the cystoscope under fluoroscopic visualization. Once in position the wire was removed. A good curl was noted in the kidney and the bladder. The bladder was emptied and patient awoken from anesthesia. Geovanny Grajeda MD 11/18/22 3:00 PM T [facility] 11-18-2022 Note H&P Update / Patient's History and Physical from 11/15/22 was reviewed./ Patient examined. There has been no change. Impression: left hydronephrosis Plan: : cp left ureteroscopy left stent : Electronically signed by Geovanny Grajeda MD 11/18/22 11:19 AM [facility] 11-18-2022 Attending History and physical note Images from the original note were not included. H&P Update / Patient's History and Physical from 11/15/22 was reviewed./ Patient examined. There has been no change. Impression: left hydronephrosis Plan: : cp left ureteroscopy left stent : Electronically signed by Geovanny Grajeda MD 11/18/22 11:19 AM Source Note - EDDIE Bang - 11/15/2022 10:30 AM EDT Images from the original note were not included. Comprehensive Pre Surgical History and Physical ? Name: Loni Turner : 1970 (Age-52 y.o.) Date of Service: Pt seen/examined on 11/15/2022 Procedure Information Date/Time: 11/18/22 1100 Procedures: CYSTOSCOPY RETROGRADE PYELOGRAM, LEFT URETEROSCOPY, POSSIBLE HOLMIUM LASER LITHOTRIPSY, LEFT URETERAL STENT PLACEMENT (Urethra) CYSTOSCOPY WITH URETEROSCOPY AND OR PYELOSCOPY DIAGNOSTIC (Urethra) CYSTOSCOPY WITH INSERTION URETERAL STENT (Urethra) CYSTOSCOPY WITH URETEROSCOPY AND OR PYELOSCOPY WITH REMOVAL OR MANIPULATION CALCULUS WITH LITHOTRIPSY (Urethra) Location: [facility] OR [address] [place] [address] Operating Room Surgeons: Geovanny Grajeda MD Chief Complaint: Unspecified hydronephrosis [N13.30] ASSESSMENT/PLAN: Patient is considered low/intermediate risk for this low/intermediate risk procedure/surgery. 1) Unspecified hydronephrosis [N13.30] - Managed per surgery - Ordered per PAT protocol - EKG, H&H - Ordered per surgeon - BMP 2) HTN - Managed on Diovan BP Readings from Last 3 Encounters: 11/15/22 (!) 140/78 11/08/22 132/68 3) Tobacco use - Smokes 1 PPD for the past 30 days - Chronic cough, at baseline - Instructed patient to not smoke 24 hours prior to procedure Visit Type: Pre-Admission Testing Visit Labs Ordered: As ordered by surgeon and per PAT protocol Sleep Referral Ordered: NO - NEGATIVE SCREEN PER SLEEP REFERRAL PROTOCOL Total time spent (which include face to face and non face to face encounters) : 35 minutes Toxic drug monitoring/narrow therapeutic index drug monitoring : # Drug name : Diovan # Route administered : oral # Method of monitoring : N/A - lab work ordered by surgeon PAT Protocol referenced includes: 1. Anesthesia Lab Protocol Orders 2. Perioperative Cardiovascular Risk Assessment 3. Anesthesia Assessment 4. Pain Assessment and Acute Pain Service Consult (if appropriate) 5. Medical Clearance/Consult from Internal Medicine (IMS) 6. Shower/Wash Order (for designated surgeries) 7. IVETT Screen and Sleep Clinic Referral (if appropriate) History Of Present Illness: 52 y.o. female who we are asked to see/evaluate by Dr. Grajeda for pre-operative evaluation prior to the above procedure. OV with Dr. Grajeda on 11/08/22 Ms. Turner is a 52 y.o. female who presents with left hydro. In er in September, ct with severe left hydro. Ct 2018 with left hydro now worse Hx of laser litho in [place]. Void well, no heme, or uti Now pain 2/10 ? Denies history of NC, CAD, CHF, TIA, CVA Past Medical History: Past Medical History: No date: Allergies No date: Anxiety No date: Arthritis No date: Degenerative disc disease, lumbar No date: Depression No date: Hypertension No date: Kidney stones No date: PONV (postoperative nausea and vomiting) Past Surgical History: Past Surgical History: No date: SECTION, LOW TRANSVERSE No date: COLONOSCOPY No date: HYSTERECTOMY No date: LITHOTRIPSY (HISTORICAL) Comment: x3 No date: TONSILLECTOMY Comment: adnoids No date: WISDOM TOOTH EXTRACTION Medications Prior to Admission: Prior to Admission medications Medication Sig Start Date End Date Taking? Authorizing Provider acetaminophen (Tylenol) 500 MG tablet Take 1,000 mg by mouth. 03/04/22 Historical Provider, cyclobenzaprine (Flexeril) 5 MG tablet TAKE 1 TABLET BY MOUTH THREE TIMES A DAY FOR 7 DAYS NEEDED FOR MUSLCE SPAMS 07/26/22 Historical Provider, EPINEPHrine (Epipen) 0.3 MG/0.3ML injection syringe INJECT 0.3 MG SUBCUTANEOUSLY ONCE 06/14/22 Historical Provider, escitalopram (Lexapro) 20 MG tablet Take 20 mg by mouth daily. 10/12/22 Historical Provider, fluticasone (Flonase Allergy Relief) 50 MCG/ACT nasal spray Dose = 1 spray(s), Nostril, each, qDay, 0 Refill(s) 03/04/22 Historical Provider, ibuprofen 200 MG tablet Take 400 mg by mouth. 03/04/22 Historical Provider, methylPREDNISolone (Medrol Dospak) 4 MG tablets TAKE 6 TABLETS ON DAY 1 DIRECTED ON PACKAGE AND DECREASE BY 1 TAB EACH DAY FOR A TOTAL OF 6 DAYS 08/09/22 Historical Provider, triamcinolone (Kenalog) 0.1 % cream APPLY TO AFFECTED AREA TWICE A DAY FOR 14 DAYS 08/09/22 Historical Provider, valsartan-hydroCHLOROthiazide (Diovan-HCT) 320-12.5 MG tablet Take 1 tablet by mouth daily. 10/12/22 Historical Provider, CHRONIC NARCOTIC USE: No Allergies: [place] oil; Diclofenac; Egg solids, whole; Food; Hydrocodone; Hydrocodone-acetaminophen; Penicillins; Seasonal ic [octacosanol]; and Shellfish allergy If patient has opioid allergy, is it okay to take Acetaminophen: Yes Social History: TOBACCO: reports that she has been smoking cigarettes. She has a 30.00 pack-year smoking history. She has never used smokeless tobacco. ETOH: reports current alcohol use of about 7.0 standard drinks of alcohol per week. Social History Substance and Sexual Activity Drug Use Yes Frequency: 3.0 times per week Types: Marijuana Family History: No family history on file. REVIEW OF SYSTEMS: Review of Systems Constitutional: Negative for fatigue and fever. HENT: Negative for congestion. Respiratory: Positive for cough. Negative for chest tightness and shortness of breath. Cardiovascular: Negative for chest pain and palpitations. Gastrointestinal: Negative for diarrhea and vomiting. Skin: Negative for rash and wound. Neurological: Negative for syncope, weakness and headaches. Psychiatric/Behavioral: Negative for agitation. Physical Exam: Physical Exam Constitutional: Appearance: Normal appearance. HENT: Head: Normocephalic and atraumatic. Nose: Nose normal. Eyes: Extraocular Movements: Extraocular movements intact. Cardiovascular: Rate and Rhythm: Normal rate and regular rhythm. Heart sounds: Normal heart sounds. Pulmonary: Effort: Pulmonary effort is normal. Breath sounds: Normal breath sounds. Musculoskeletal: General: Normal range of motion. Cervical back: Neck supple. Skin: General: Skin is warm and dry. Neurological: General: No focal deficit present. Mental Status: She is alert. Psychiatric: Mood and Affect: Mood normal. Behavior: Behavior normal. Vitals: Vitals Value Taken Time BP 140/78 11/15/22 1031 Temp 36.1 C (96.9 F) 11/15/22 1031 Pulse 61 11/15/22 1031 Resp 16 11/15/22 1031 SpO2 96 % 11/15/22 1031 Labs: No results found for: WBC, HGB, HCT, MCV, PLT No results found for: NA, K, CL, CO2, BUN, CREATININE, GLUCOSE, CALCIUM, PROT, BILIRUBINFL, ALKPHOS, AST, ALT, EGFR, GLOB Ronnell's Simple Cardiac Risk Index: RONNELL'S SIMPLE CARDIAC RISK SCORE: 0 Interpretation: 0 Points Class I 0.5% 1 Point Class II 1.3% 2 Points Class III 3.6% 3+ Points Class IV 9.1% PAT Pain Score: Postop Pain Management Plan (Pain consult ordered?): Pain consult not indicated at this time ? EKG: Yes ordered. Patient asymptomatic with > 4 METS ECHO and EF:None on file No components found for: LVEF, LVEFMODE METS ____>4____ Electronically signed by: EDDEI Bang Date: 11/15/2022 at 11:12 AM [facility] Phone: 11-18-2022 History and physical note Images from the original note were not included. H&P Update / Patient's History and Physical from 11/15/22 was reviewed./ Patient examined. There has been no change. Impression: left hydronephrosis Plan: : cp left ureteroscopy left stent : Electronically signed by Geovanny Grajeda MD 11/18/22 11:19 AM Source Note - EDDIE Bang - 11/15/2022 10:30 AM EDT Images from the original note were not included. Comprehensive Pre Surgical History and Physical ? Name: Loni Turner : 1970 (Age-52 y.o.) Date of Service: Pt seen/examined on 11/15/2022 Procedure Information Date/Time: 11/18/22 1100 Procedures: CYSTOSCOPY RETROGRADE PYELOGRAM, LEFT URETEROSCOPY, POSSIBLE HOLMIUM LASER LITHOTRIPSY, LEFT URETERAL STENT PLACEMENT (Urethra) CYSTOSCOPY WITH URETEROSCOPY AND OR PYELOSCOPY DIAGNOSTIC (Urethra) CYSTOSCOPY WITH INSERTION URETERAL STENT (Urethra) CYSTOSCOPY WITH URETEROSCOPY AND OR PYELOSCOPY WITH REMOVAL OR MANIPULATION CALCULUS WITH LITHOTRIPSY (Urethra) Location: [facility] OR [address] [place] [address] Operating Room Surgeons: Geovanny Grajeda MD Chief Complaint: Unspecified hydronephrosis [N13.30] ASSESSMENT/PLAN: Patient is considered low/intermediate risk for this low/intermediate risk procedure/surgery. 1) Unspecified hydronephrosis [N13.30] - Managed per surgery - Ordered per PAT protocol - EKG, H&H - Ordered per surgeon - BMP 2) HTN - Managed on Diovan BP Readings from Last 3 Encounters: 11/15/22 (!) 140/78 11/08/22 132/68 3) Tobacco use - Smokes 1 PPD for the past 30 days - Chronic cough, at baseline - Instructed patient to not smoke 24 hours prior to procedure Visit Type: Pre-Admission Testing Visit Labs Ordered: As ordered by surgeon and per PAT protocol Sleep Referral Ordered: NO - NEGATIVE SCREEN PER SLEEP REFERRAL PROTOCOL Total time spent (which include face to face and non face to face encounters) : 35 minutes Toxic drug monitoring/narrow therapeutic index drug monitoring : # Drug name : Diovan # Route administered : oral # Method of monitoring : N/A - lab work ordered by surgeon PAT Protocol referenced includes: 1. Anesthesia Lab Protocol Orders 2. Perioperative Cardiovascular Risk Assessment 3. Anesthesia Assessment 4. Pain Assessment and Acute Pain Service Consult (if appropriate) 5. Medical Clearance/Consult from Internal Medicine (IMS) 6. Shower/Wash Order (for designated surgeries) 7. IVETT Screen and Sleep Clinic Referral (if appropriate) History Of Present Illness: 52 y.o. female who we are asked to see/evaluate by Dr. Grajeda for pre-operative evaluation prior to the above procedure. OV with Dr. Grajeda on 11/08/22 Ms. Turner is a 52 y.o. female who presents with left hydro. In er in September, ct with severe left hydro. Ct 2018 with left hydro now worse Hx of laser litho in [place]. Void well, no heme, or uti Now pain / ? Denies history of NC, CAD, CHF, TIA, CVA Past Medical History: Past Medical History: No date: Allergies No date: Anxiety No date: Arthritis No date: Degenerative disc disease, lumbar No date: Depression No date: Hypertension No date: Kidney stones No date: PONV (postoperative nausea and vomiting) Past Surgical History: Past Surgical History: No date: SECTION, LOW TRANSVERSE No date: COLONOSCOPY No date: HYSTERECTOMY No date: LITHOTRIPSY (HISTORICAL) Comment: x3 No date: TONSILLECTOMY Comment: adnoids No date: WISDOM TOOTH EXTRACTION Medications Prior to Admission: Prior to Admission medications Medication Sig Start Date End Date Taking? Authorizing Provider acetaminophen (Tylenol) 500 MG tablet Take 1,000 mg by mouth. 03/04/22 Historical Provider, cyclobenzaprine (Flexeril) 5 MG tablet TAKE 1 TABLET BY MOUTH THREE TIMES A DAY FOR 7 DAYS NEEDED FOR MUSLCE SPAMS 07/26/22 Historical Provider, EPINEPHrine (Epipen) 0.3 MG/0.3ML injection syringe INJECT 0.3 MG SUBCUTANEOUSLY ONCE 06/14/22 Historical Provider, escitalopram (Lexapro) 20 MG tablet Take 20 mg by mouth daily. 10/12/22 Historical Provider, fluticasone (Flonase Allergy Relief) 50 MCG/ACT nasal spray Dose = 1 spray(s), Nostril, each, qDay, 0 Refill(s) 03/04/22 Historical Provider, ibuprofen 200 MG tablet Take 400 mg by mouth. 03/04/22 Historical Provider, methylPREDNISolone (Medrol Dospak) 4 MG tablets TAKE 6 TABLETS ON DAY 1 DIRECTED ON PACKAGE AND DECREASE BY 1 TAB EACH DAY FOR A TOTAL OF 6 DAYS 08/09/22 Historical Provider, triamcinolone (Kenalog) 0.1 % cream APPLY TO AFFECTED AREA TWICE A DAY FOR 14 DAYS 08/09/22 Historical Provider, valsartan-hydroCHLOROthiazide (Diovan-HCT) 320-12.5 MG tablet Take 1 tablet by mouth daily. 10/12/22 Historical Provider, CHRONIC NARCOTIC USE: No Allergies: [place] oil; Diclofenac; Egg solids, whole; Food; Hydrocodone; Hydrocodone-acetaminophen; Penicillins; Seasonal ic [octacosanol]; and Shellfish allergy If patient has opioid allergy, is it okay to take Acetaminophen: Yes Social History: TOBACCO: reports that she has been smoking cigarettes. She has a 30.00 pack-year smoking history. She has never used smokeless tobacco. ETOH: reports current alcohol use of about 7.0 standard drinks of alcohol per week. Social History Substance and Sexual Activity Drug Use Yes Frequency: 3.0 times per week Types: Marijuana Family History: No family history on file. REVIEW OF SYSTEMS: Review of Systems Constitutional: Negative for fatigue and fever. HENT: Negative for congestion. Respiratory: Positive for cough. Negative for chest tightness and shortness of breath. Cardiovascular: Negative for chest pain and palpitations. Gastrointestinal: Negative for diarrhea and vomiting. Skin: Negative for rash and wound. Neurological: Negative for syncope, weakness and headaches. Psychiatric/Behavioral: Negative for agitation. Physical Exam: Physical Exam Constitutional: Appearance: Normal appearance. HENT: Head: Normocephalic and atraumatic. Nose: Nose normal. Eyes: Extraocular Movements: Extraocular movements intact. Cardiovascular: Rate and Rhythm: Normal rate and regular rhythm. Heart sounds: Normal heart sounds. Pulmonary: Effort: Pulmonary effort is normal. Breath sounds: Normal breath sounds. Musculoskeletal: General: Normal range of motion. Cervical back: Neck supple. Skin: General: Skin is warm and dry. Neurological: General: No focal deficit present. Mental Status: She is alert. Psychiatric: Mood and Affect: Mood normal. Behavior: Behavior normal. Vitals: Vitals Value Taken Time BP 140/78 11/15/22 1031 Temp 36.1 C (96.9 F) 11/15/22 1031 Pulse 61 11/15/22 1031 Resp 16 11/15/22 1031 SpO2 96 % 11/15/22 1031 Labs: No results found for: WBC, HGB, HCT, MCV, PLT No results found for: NA, K, CL, CO2, BUN, CREATININE, GLUCOSE, CALCIUM, PROT, BILIRUBINFL, ALKPHOS, AST, ALT, EGFR, GLOB Ronnell's Simple Cardiac Risk Index: RONNELL'S SIMPLE CARDIAC RISK SCORE: 0 Interpretation: 0 Points Class I 0.5% 1 Point Class II 1.3% 2 Points Class III 3.6% 3+ Points Class IV 9.1% PAT Pain Score: Postop Pain Management Plan (Pain consult ordered?): Pain consult not indicated at this time ? EKG: Yes ordered. Patient asymptomatic with > 4 METS ECHO and EF:None on file No components found for: LVEF, LVEFMODE METS ____>4____ Electronically signed by: EDDIE Bang Date: 11/15/2022 at 11:12 AM documented in this encounter [facility] 11-15-2022 Note Patient: Loni Pop or Procedure Information Date/Time: 11/18/22 1100 Procedures: CYSTOSCOPY RETROGRADE PYELOGRAM, LEFT URETEROSCOPY, POSSIBLE HOLMIUM LASER LITHOTRIPSY, LEFT URETERAL STENT PLACEMENT (Urethra) CYSTOSCOPY WITH URETEROSCOPY AND OR PYELOSCOPY DIAGNOSTIC (Urethra) CYSTOSCOPY WITH INSERTION URETERAL STENT (Urethra) CYSTOSCOPY WITH URETEROSCOPY AND OR PYELOSCOPY WITH REMOVAL OR MANIPULATION CALCULUS WITH LITHOTRIPSY (Urethra) Location: [facility] OR [address] [place] [place] [address] Operating Room Surgeons: Geovanny Grajeda MD Past Medical History: Past Medical History: No date: Allergies No date: Anxiety No date: Arthritis No date: Degenerative disc disease, lumbar No date: Depression No date: Hypertension No date: Kidney stones No date: PONV (postoperative nausea and vomiting) Past Surgical History: Past Surgical History: No date: SECTION, LOW TRANSVERSE No date: COLONOSCOPY No date: HYSTERECTOMY No date: LITHOTRIPSY (HISTORICAL) Comment: x3 No date: TONSILLECTOMY Comment: adnoids No date: WISDOM TOOTH EXTRACTION Social History: TOBACCO: reports that she has been smoking cigarettes. She has a 30.00 pack-year smoking history. She has never used smokeless tobacco. ETOH: reports current alcohol use of about 7.0 standard drinks of alcohol per week. Social History Substance and Sexual Activity Drug Use Yes ? Frequency: 3.0 times per week ? Types: Marijuana Family History: No family history on file. Screening: Hysterectomy Clinical information reviewed: Tobacco Allergies Meds Med Hx Surg Hx OB Status Fam Hx Soc Hx Physical Exam Airway Mallampati: I TM distance: >3 FB Neck ROM: full Mouth Open: normalendotracheal tube not in place Cardiovascular Comments: Sinus bradycardia Nonspecific T abnormalities, anterior leads Dental (+) Missing Pulmonary Abdominal Anesthesia Plan patient is NPO appropriate Any family history or previous problems with anesthesia no ASA 2 general Any family history or previous problems with anesthesia no The patient is a current smoker. Patient was previously instructed to abstain from smoking on day of procedure. Patient did not smoke on day of procedure. Anesthetic plan and risks discussed with patient. Anesthesia Bains Considerations Emend ordered ERAS Type Short ERAS IVETT Screening STOP-Bang Total Score: 2 Labs: No results found for: WBC, HGB, HCT, MCV, PLT No results found for: NA, K, CL, CO2, BUN, CREATININE, GLUCOSE, CALCIUM, PROT, BILIRUBINFL, ALKPHOS, AST, ALT, EGFR, GLOB EKG prelim 11/15/2022 IMPRESSION: Sinus bradycardia Nonspecific T abnormalities, anterior leads No echocardiogram results found for the past 14 days No results found for this or any previous visit. [facility] 11-15-2022 Note Comprehensive Pre Franz rgical History and Physical ? Name: Loni Turner : 1970 (Age-52 y.o.) Date of Service: Pt seen/examined on 11/15/2022 Procedure Information Date/Time: 11/18/22 1100 Procedures: CYSTOSCOPY RETROGRADE PYELOGRAM, LEFT URETEROSCOPY, POSSIBLE HOLMIUM LASER LITHOTRIPSY, LEFT URETERAL STENT PLACEMENT (Urethra) CYSTOSCOPY WITH URETEROSCOPY AND OR PYELOSCOPY DIAGNOSTIC (Urethra) CYSTOSCOPY WITH INSERTION URETERAL STENT (Urethra) CYSTOSCOPY WITH URETEROSCOPY AND OR PYELOSCOPY WITH REMOVAL OR MANIPULATION CALCULUS WITH LITHOTRIPSY (Urethra) Location: [facility] OR [address] [place] [address] Operating Room Surgeons: Geovanny Grajeda MD Chief Complaint: Unspecified hydronephrosis [N13.30] ASSESSMENT/PLAN: Patient is considered low/intermediate risk for this low/intermediate risk procedure/surgery. 1) Unspecified hydronephrosis [N13.30] - Managed per surgery - Ordered per PAT protocol - EKG, H&H - Ordered per surgeon - BMP 2) HTN - Managed on Diovan BP Readings from Last 3 Encounters: 11/15/22 (!) 140/78 11/08/22 132/68 3) Tobacco use - Smokes 1 PPD for the past 30 days - Chronic cough, at baseline - Instructed patient to not smoke 24 hours prior to procedure Visit Type: Pre-Admission Testing Visit Labs Ordered: As ordered by surgeon and per PAT protocol Sleep Referral Ordered: NO - NEGATIVE SCREEN PER SLEEP REFERRAL PROTOCOL Total time spent (which include face to face and non face to face encounters) : 35 minutes Toxic drug monitoring/narrow therapeutic index drug monitoring : # Drug name : Diovan # Route administered : oral # Method of monitoring : N/A - lab work ordered by surgeon PAT Protocol referenced includes: 1. Anesthesia Lab Protocol Orders 2. Perioperative Cardiovascular Risk Assessment 3. Anesthesia Assessment 4. Pain Assessment and Acute Pain Service Consult (if appropriate) 5. Medical Clearance/Consult from Internal Medicine (IMS) 6. Shower/Wash Order (for designated surgeries) 7. IVETT Screen and Sleep Clinic Referral (if appropriate) History Of Present Illness: 52 y.o. female who we are asked to see/evaluate by Dr. Grajeda for pre-operative evaluation prior to the above procedure. OV with Dr. Grajeda on 11/08/22 Ms. Turner is a 52 y.o. female who presents with left hydro. In er in September, ct with severe left hydro. Ct 2018 with left hydro now worse Hx of laser litho in [place]. Void well, no heme, or uti Now pain 2/10 ? Denies history of NC, CAD, CHF, TIA, CVA Past Medical History: Past Medical History: No date: Allergies No date: Anxiety No date: Arthritis No date: Degenerative disc disease, lumbar No date: Depression No date: Hypertension No date: Kidney stones No date: PONV (postoperative nausea and vomiting) Past Surgical History: Past Surgical History: No date: SECTION, LOW TRANSVERSE No date: COLONOSCOPY No date: HYSTERECTOMY No date: LITHOTRIPSY (HISTORICAL) Comment: x3 No date: TONSILLECTOMY Comment: adnoids No date: WISDOM TOOTH EXTRACTION Medications Prior to Admission: Prior to Admission medications Medication Sig Start Date End Date Taking? Authorizing Provider acetaminophen (Tylenol) 500 MG tablet Take 1,000 mg by mouth. 03/04/22 Historical Provider, cyclobenzaprine (Flexeril) 5 MG tablet TAKE 1 TABLET BY MOUTH THREE TIMES A DAY FOR 7 DAYS NEEDED FOR MUSLCE SPAMS 07/26/22 Historical Provider, EPINEPHrine (Epipen) 0.3 MG/0.3ML injection syringe INJECT 0.3 MG SUBCUTANEOUSLY ONCE 06/14/22 Historical Provider, escitalopram (Lexapro) 20 MG tablet Take 20 mg by mouth daily. 10/12/22 Historical Provider, fluticasone (Flonase Allergy Relief) 50 MCG/ACT nasal spray Dose = 1 spray(s), Nostril, each, qDay, 0 Refill(s) 03/04/22 Historical Provider, ibuprofen 200 MG tablet Take 400 mg by mouth. 03/04/22 Historical Provider, methylPREDNISolone (Medrol Dospak) 4 MG tablets TAKE 6 TABLETS ON DAY 1 DIRECTED ON PACKAGE AND DECREASE BY 1 TAB EACH DAY FOR A TOTAL OF 6 DAYS 08/09/22 Historical Provider, triamcinolone (Kenalog) 0.1 % cream APPLY TO AFFECTED AREA TWICE A DAY FOR 14 DAYS 08/09/22 Historical Provider, valsartan-hydroCHLOROthiazide (Diovan-HCT) 320-12.5 MG tablet Take 1 tablet by mouth daily. 10/12/22 Historical Provider, CHRONIC NARCOTIC USE: No Allergies: [place] oil; Diclofenac; Egg solids, whole; Food; Hydrocodone; Hydrocodone-acetaminophen; Penicillins; Seasonal ic [octacosanol]; and Shellfish allergy If patient has opioid allergy, is it okay to take Acetaminophen: Yes Social History: TOBACCO: reports that she has been smoking cigarettes. She has a 30.00 pack-year smoking history. She has never used smokeless tobacco. ETOH: reports current alcohol use of about 7.0 standard drinks of alcohol per week. Social History Substance and Sexual Activity (more content not included)... [facility] 11-15-2022 Note Comprehensive Pre Franz rgical History and Physical ? Name: Loni Turner : 1970 (Age-52 y.o.) Date of Service: Pt seen/examined on 11/15/2022 Procedure Information Date/Time: 11/18/22 1100 Procedures: CYSTOSCOPY RETROGRADE PYELOGRAM, LEFT URETEROSCOPY, POSSIBLE HOLMIUM LASER LITHOTRIPSY, LEFT URETERAL STENT PLACEMENT (Urethra) CYSTOSCOPY WITH URETEROSCOPY AND OR PYELOSCOPY DIAGNOSTIC (Urethra) CYSTOSCOPY WITH INSERTION URETERAL STENT (Urethra) CYSTOSCOPY WITH URETEROSCOPY AND OR PYELOSCOPY WITH REMOVAL OR MANIPULATION CALCULUS WITH LITHOTRIPSY (Urethra) Location: [facility] OR [address] [place] [address] Operating Room Surgeons: Geovanny Grajeda MD Chief Complaint: Unspecified hydronephrosis [N13.30] ASSESSMENT/PLAN: Patient is considered low/intermediate risk for this low/intermediate risk procedure/surgery. 1) Unspecified hydronephrosis [N13.30] - Managed per surgery - Ordered per PAT protocol - EKG, H&H - Ordered per surgeon - BMP 2) HTN - Managed on Diovan BP Readings from Last 3 Encounters: 11/15/22 (!) 140/78 11/08/22 132/68 3) Tobacco use - Smokes 1 PPD for the past 30 days - Chronic cough, at baseline - Instructed patient to not smoke 24 hours prior to procedure Visit Type: Pre-Admission Testing Visit Labs Ordered: As ordered by surgeon and per PAT protocol Sleep Referral Ordered: NO - NEGATIVE SCREEN PER SLEEP REFERRAL PROTOCOL Total time spent (which include face to face and non face to face encounters) : 35 minutes Toxic drug monitoring/narrow therapeutic index drug monitoring : # Drug name : Diovan # Route administered : oral # Method of monitoring : N/A - lab work ordered by surgeon PAT Protocol referenced includes: 1. Anesthesia Lab Protocol Orders 2. Perioperative Cardiovascular Risk Assessment 3. Anesthesia Assessment 4. Pain Assessment and Acute Pain Service Consult (if appropriate) 5. Medical Clearance/Consult from Internal Medicine (IMS) 6. Shower/Wash Order (for designated surgeries) 7. VIETT Screen and Sleep Clinic Referral (if appropriate) History Of Present Illness: 52 y.o. female who we are asked to see/evaluate by Dr. Grajeda for pre-operative evaluation prior to the above procedure. OV with Dr. Grajeda on 11/08/22 Ms. Turner is a 52 y.o. female who presents with left hydro. In er in September, ct with severe left hydro. Ct 2019 with left hydro now worse Hx of laser litho in [place]. Void well, no heme, or uti Now pain /10 ? Denies history of NC, CAD, CHF, TIA, CVA Past Medical History: Past Medical History: No date: Allergies No date: Anxiety No date: Arthritis No date: Degenerative disc disease, lumbar No date: Depression No date: Hypertension No date: Kidney stones No date: PONV (postoperative nausea and vomiting) Past Surgical History: Past Surgical History: No date: SECTION, LOW TRANSVERSE No date: COLONOSCOPY No date: HYSTERECTOMY No date: LITHOTRIPSY (HISTORICAL) Comment: x3 No date: TONSILLECTOMY Comment: adnoids No date: WISDOM TOOTH EXTRACTION Medications Prior to Admission: Prior to Admission medications Medication Sig Start Date End Date Taking? Authorizing Provider acetaminophen (Tylenol) 500 MG tablet Take 1,000 mg by mouth. 03/04/22 Historical Provider, cyclobenzaprine (Flexeril) 5 MG tablet TAKE 1 TABLET BY MOUTH THREE TIMES A DAY FOR 7 DAYS NEEDED FOR MUSLCE SPAMS 07/26/22 Historical Provider, EPINEPHrine (Epipen) 0.3 MG/0.3ML injection syringe INJECT 0.3 MG SUBCUTANEOUSLY ONCE 06/14/22 Historical Provider, escitalopram (Lexapro) 20 MG tablet Take 20 mg by mouth daily. 10/12/22 Historical Provider, fluticasone (Flonase Allergy Relief) 50 MCG/ACT nasal spray Dose = 1 spray(s), Nostril, each, qDay, 0 Refill(s) 03/04/22 Historical Provider, ibuprofen 200 MG tablet Take 400 mg by mouth. 03/04/22 Historical Provider, methylPREDNISolone (Medrol Dospak) 4 MG tablets TAKE 6 TABLETS ON DAY 1 DIRECTED ON PACKAGE AND DECREASE BY 1 TAB EACH DAY FOR A TOTAL OF 6 DAYS 08/09/22 Historical Provider, triamcinolone (Kenalog) 0.1 % cream APPLY TO AFFECTED AREA TWICE A DAY FOR 14 DAYS 08/09/22 Historical Provider, valsartan-hydroCHLOROthiazide (Diovan-HCT) 320-12.5 MG tablet Take 1 tablet by mouth daily. 10/12/22 Historical Provider, CHRONIC NARCOTIC USE: No Allergies: [place] oil; Diclofenac; Egg solids, whole; Food; Hydrocodone; Hydrocodone-acetaminophen; Penicillins; Seasonal ic [octacosanol]; and Shellfish allergy If patient has opioid allergy, is it okay to take Acetaminophen: Yes Social History: TOBACCO: reports that she has been smoking cigarettes. She has a 30.00 pack-year smoking history. She has never used smokeless tobacco. ETOH: reports current alcohol use of about 7.0 standard drinks of alcohol per week. Social History Substance and Sexual Activity (more content not included)... [facility] 11-11-2022 Telephone encounter Note Pt agrees to d/t/l and instructions for surgery on 11/18/22 at [facility] with Dr. Grajeda. PAT on 11/15/22. [facility] 11-11-2022 Miscellaneous Notes Pt agrees to d/t/l and instructions for surgery on 11/18/22 at [facility] with Dr. Grajeda. SPEEDY on 11/15/22. SURGERY SCHEDULING PROCEDURE: : Cystoscopy retrograde pyelogram left ureteroscopy left stent placement possible laser lithotripsy DIAGNOSIS: Left hydronephrosis FACILITY: Any DETAILS: OUTPT ANESTHESIA: GENERAL TIME REQUESTED: 1 HR DATE REQUESTED: ROUTINE POST OP FOLLOW UP: 2 WK REP REQUESTED: MEDICAL CLEARANCE: CONFERENCE: NO COVID TESTING: NO documented in this encounter [facility] 11-08-2022 Note SURGERY SCHEDULING PROCEDURE: : Cystoscopy retrograde pyelogram left ureteroscopy left stent placement possible laser lithotripsy DIAGNOSIS: Left hydronephrosis FACILITY: Any DETAILS: OUTPT ANESTHESIA: GENERAL TIME REQUESTED: 1 HR DATE REQUESTED: ROUTINE POST OP FOLLOW UP: 2 WK REP REQUESTED: MEDICAL CLEARANCE: CONFERENCE: NO COVID TESTING: NO [facility] 11-08-2022 Telephone encounter Note SURGERY SCHEDULING PROCEDURE: : Cystoscopy retrograde pyelogram left ureteroscopy left stent placement possible laser lithotripsy DIAGNOSIS: Left hydronephrosis FACILITY: Any DETAILS: OUTPT ANESTHESIA: GENERAL TIME REQUESTED: 1 HR DATE REQUESTED: ROUTINE POST OP FOLLOW UP: 2 WK REP REQUESTED: MEDICAL CLEARANCE: CONFERENCE: NO COVID TESTING: NO [facility] 06-05-2022 Note ORIGINAL EXAMINATION: TWO XRAY VIEWS OF THE LEFT HIP 06/05/2022 8:28 am COMPARISON: None. HISTORY: ORDERING SYSTEM PROVIDED HISTORY: Reason for Exam: pain FINDINGS: Minor osteoarthritis is present at the left hip with very small marginal spurs. No fracture, dislocation or other significant abnormality seen. There are degenerative changes at the lower lumbar spine. IMPRESSION: Minor left hip osteoarthritis. No acute finding. Interpreted by: Grzegorz Fernandez MD Preliminary Report By: Grzegorz Fernandez MD Electronically signed By Grzegorz Fernandez MD Dictated Date: 06/05/2022 8:55:44 AM Prelim Date: 06/05/2022 8:56:11 AM Sign Date: 06/05/2022 8:56:11 AM Ordering Provider: [facility] 06-05-2022 Note ORIGINAL EXAMINATION: TWO XRAY VIEWS OF THE LEFT HIP 06/05/2022 8:28 am COMPARISON: None. HISTORY: ORDERING SYSTEM PROVIDED HISTORY: Reason for Exam: pain FINDINGS: Minor osteoarthritis is present at the left hip with very small marginal spurs. No fracture, dislocation or other significant abnormality seen. There are degenerative changes at the lower lumbar spine. IMPRESSION: Minor left hip osteoarthritis. No acute finding. Interpreted by: Grzegorz Fernandez MD Preliminary Report By: Grzegorz Fernandez MD Electronically signed By Grzegorz Fernandez MD Dictated Date: 06/05/2022 8:55:44 AM Prelim Date: 06/05/2022 8:56:11 AM Sign Date: 06/05/2022 8:56:11 AM Ordering Provider: MAIDA HOOPER [facility] 03-11-2022 Hospital Discharge instructions Patient Education 03/11/2022 12:38:56 Viral Syndrome (Adult) Viral Syndrome (Adult) A viral illness may cause a number of symptoms such as fever. Other symptoms depend on the part of the body that the virus affects. If it settles in your nose, throat, and lungs, it may cause cough, sore throat, congestion, runny nose, headache, earache and other ear symptoms, or shortness of breath. If it settles in your stomach and intestinal tract, it may cause nausea, vomiting, cramping, and diarrhea. Sometimes it causes generalized symptoms like aching all over, feeling tired, loss of energy, or loss of appetite. A viral illness usually lasts anywhere from several days to several weeks, but sometimes it lasts longer. In some cases, a more serious infection can look like a viral syndrome in the first few days of the illness. You may need another exam and additional tests to know the difference. Watch for the warning signs listed below for when to seek medical advice. Home care Follow these guidelines for taking care of yourself at home: If symptoms are severe, rest at home for the first 2 to 3 days. Stay away from cigarette smoke - both your smoke and the smoke from others. You may use hpph-wzr-[id number] acetaminophen or ibuprofen for fever, muscle aching, and headache, unless another medicine was prescribed for this. If you have chronic liver or kidney disease or ever had a stomach ulcer or gastrointestinal bleeding, talk with your healthcare provider before using these medicines. No one who is younger than 18 and ill with a fever should take aspirin. It may cause severe disease or . Your appetite may be poor, so a light diet is fine. Avoid dehydration by drinking 8 to 12, 8-ounce glasses of fluids each day. This may include water; orange juice; lemonade; apple, grape, and cranberry juice; clear fruit drinks; electrolyte replacement and sports drinks; and decaffeinated teas and coffee. If you have been diagnosed with a kidney disease, ask your healthcare provider how much and what types of fluids you should drink to prevent dehydration. If you have kidney disease, drinking too much fluid can cause it build up in the your body and be dangerous to your health. Srks-guj-ivgcatt remedies won't shorten the length of the illness but may be helpful for symptoms such as cough, sore throat, nasal and sinus congestion, or diarrhea. Don't use decongestants if you have high blood pressure. Follow-up care Follow up with your healthcare provider if you do not improve over the next week. Call 911 Call 911 if any of the following occur: Convulsion Feeling weak, dizzy, or like you are going to faint Chest pain, or more than mild shortness of breath When to seek medical advice Call your healthcare provider right away if any of these occur: Cough with lots of colored sputum (mucus) or blood in your sputum Chest pain, shortness of breath, wheezing, or trouble breathing Severe headache; face, neck, or ear pain Severe, constant pain in the lower right side of your belly (abdominal) Continued vomiting (can t keep liquids down) Frequent diarrhea (more than 5 times a day); blood (red or black color) or mucus in diarrhea Feeling weak, dizzy, or like you are going to faint Extreme thirst Fever of 100.4 F (38 C) or higher, or as directed by your healthcare provider [id number] [employer]. [address] [place] [address]. All rights reserved. This information is not intended as a substitute for professional medical care. Always follow your healthcare professional's instructions. Follow Up Care 03/11/2022 10:39:33 With:ALEKSANDAR CRUZ APRN - [facility] Address: [address] [place] [address] [place] [address]- When:2-4 days [facility] 03-11-2022 Note ORIGINAL EXAMINATION: ONE XRAY VIEW OF THE CHEST 03/11/2022 11:56 am COMPARISON: None. HISTORY: ORDERING SYSTEM PROVIDED HISTORY: Reason for Exam: SOB/cough/fever FINDINGS: The heart is normal in size and there is no vascular congestion present. No consolidation, atelectasis or pleural fluid seen. No acute osseous abnormality. IMPRESSION: No acute finding. Interpreted by: Grzegorz Fernandez MD Preliminary Report By: Grzegorz Fernandez MD Electronically signed By Grzegorz Fernandez MD Dictated Date: 03/11/2022 12:02:59 PM Prelim Date: 03/11/2022 12:03:25 PM Sign Date: 03/11/2022 12:03:25 PM Ordering Provider: BILLY [facility] 03-11-2022 Note ORIGINAL EXAMINATION: ONE XRAY VIEW OF THE CHEST 03/11/2022 11:56 am COMPARISON: None. HISTORY: ORDERING SYSTEM PROVIDED HISTORY: Reason for Exam: SOB/cough/fever FINDINGS: The heart is normal in size and there is no vascular congestion present. No consolidation, atelectasis or pleural fluid seen. No acute osseous abnormality. IMPRESSION: No acute finding. Interpreted by: Grzegorz Fernandez MD Preliminary Report By: Grzegorz Fernandez MD Electronically signed By Grzegorz Fernandez MD Dictated Date: 03/11/2022 12:02:59 PM Prelim Date: 03/11/2022 12:03:25 PM Sign Date: 03/11/2022 12:03:25 PM [facility]ing [facility] Future Appointments Appointment Date:05/12/2021 03:40:00 PM Scheduled Provider:ALEKSANDAR CRUZ APRN - ROLLING MACHINE OPERATOR AUTOMATIC Location:[employer] [facility] Appointment Type: OV Follow Up Future Scheduled TestsComplete Blood Count 10/05/20Complete Blood Count 04/12/21Lipid Profile 10/05/20Lipid Profile 04/12/21Lipid Profile 04/14/21Vitamin D Level 04/12/21Vitamin D Level 04/14/21Complete Metabolic Panel 10/05/20Complete Metabolic Panel 04/12/21Complete Metabolic Panel 04/14/21 [facility] Evaluation + Plan note Future Appointments Appointment Date:11/09/2021 04:00:00 PM Scheduled Provider:ALEKSANDAR CRUZ APRN - ROLLING MACHINE OPERATOR AUTOMATIC Location:[facility] Appointment Type:PC OV Follow Up Future Scheduled TestsComplete Blood Count 10/05/20Complete Blood Count 04/12/21Lipid Profile 11/09/21Lipid Profile 10/05/20Lipid Profile 04/12/21Lipid Profile 04/14/21Vitamin D Level 11/09/21Vitamin D Level 04/12/21Vitamin D Level 04/14/21Complete Metabolic Panel 11/09/21Complete Metabolic Panel 10/05/20Complete Metabolic Panel 04/12/21Complete Metabolic Panel 04/14/21XR Elbow Minimum 3 Views Left 07/30/21XR Spine Lumbar W/Obliques 4 Views 07/30/21 [facility] Evaluation + Plan note Future Appointments Appointment Date:06/14/2022 04:00:00 PM Scheduled Provider:ALEKSANDAR CRUZ APRN - ROLLING MACHINE OPERATOR AUTOMATIC Location:[facility] Appointment Type: OV Follow Up Future Scheduled TestsComplete Blood Count 04/12/21Lipid Profile 11/09/21Lipid Profile 04/12/21Lipid Profile 06/14/22Lipid Profile 04/14/21Microalbumin Level Urine 06/14/22Vitamin D Level 11/09/21Vitamin D Level 04/12/21Vitamin D Level 06/14/22Vitamin D Level 04/14/21Complete Metabolic Panel 11/09/21Complete Metabolic Panel 04/12/21Complete Metabolic Panel 06/14/22Complete Metabolic Panel 04/14/21XR Elbow Minimum 3 Views Left 07/30/21XR Spine Lumbar W/Obliques 4 Views 07/30/21 [facility] Evaluation + Plan note Future Appointments Appointment Date:06/14/2022 04:00:00 PM Scheduled Provider:ALEKSANDAR CRUZ APRN - ROLLING MACHINE OPERATOR AUTOMATIC Location:[facility] Appointment Type:PC OV Follow Up Future Scheduled TestsLipid Profile 11/09/21Vitamin D Level 11/09/21Complete Metabolic Panel 11/09/21XR Elbow Minimum 3 Views Left 07/30/21XR Spine Lumbar W/Obliques 4 Views 07/30/21 [facility] Evaluation + Plan note Future Appointments Appointment Date:12/17/2022 03:20:00 PM Scheduled Provider:ALEKSANDAR CRUZ APRN, CNP Location:[facility] Appointment Type:PC OV Follow Up Future Scheduled TestsAlbumin/Creatinine Ratio, Random Urine 12/15/22MA Mammo Screening Bilateral w/ Alexey 06/14/22 [facility] Evaluation + Plan note Future Appointments Appointment Date:06/16/2023 08:00:00 AM Scheduled Provider: Location:[facility] Appointment Type:PC Nurse Lab Appointment Date:06/24/2023 03:00:00 PM Scheduled Provider:ALEKSANDAR CRUZ APRN, CNP Location:[facility] Appointment Type:PC OV Future Scheduled TestsLipid Profile //24Albumin/Creatinine Ratio, Random Urine 9//23Albumin/Creatinine Ratio, Random Urine //24Vitamin D Level 24Complete Metabolic Panel 24MA Mammo Screening Bilateral w/ Alexey 06/14/22CT Thorax w/o Contrast 03/07/23 [facility] Evaluation + Plan note Future Appointments Appointment Date:06/16/2023 08:00:00 AM Scheduled Provider: Location:[facility] Appointment Type:PC Nurse Lab Appointment Date:06/24/2023 03:00:00 PM Scheduled Provider:ALEKSANDAR CRUZ APRN, CNP Location:[employer] [facility] Appointment Type:PC OV Future Scheduled TestsLipid Profile 06/16/24Albumin/Creatinine Ratio, Random Urine 9/20/23Albumin/Creatinine Ratio, Random Urine //24Vitamin D Level 06/16/24Complete Metabolic Panel 24MA Mammo Screening Bilateral w/ Alexey 06/14/22 [facility] Diagnosis Hydronephrosis, unspecified hydronephrosis type- Primary Acquired hydronephrosis with ureteropelvic junction (UPJ) obstruction Flank pain Abdominal pain, unspecified site [facility] in [facility]* Diagnosis Hydronephrosis of left kidney- Primary Hydronephrosis Obstruction of left ureteropelvic junction (UPJ) Encounter for removal of ureteral stent Unspecified hydronephrosis Hydronephrosis with ureteropelvic junction obstruction (CODE) documented in this encounter [facility] note* Diagnosis Left flank pain- Primary Abdominal pain, unspecified site Unspecified hydronephrosis Hydronephrosis with ureteropelvic junction obstruction (CODE) documented in this encounter [facility] note* Diagnosis UPJ obstruction, acquired- Primary UPJ obstruction, acquired Urinary (tract) obstruction Urinary obstruction, unspecified documented in this encounter [facility] note* Diagnosis Obstruction of left ureteropelvic junction (UPJ)- Primary documented in this encounter [facility] note* Diagnosis Obstruction of left ureteropelvic junction (UPJ)- Primary documented in this encounter [facility] course Narrative No data available for this section [facility] Hospital Discharge instructions No data available for this section [facility]* Attachments The following attachments cannot be sent through Care Everywhere. * Cystoscopy Discharge Instructions (Albanian) * Ureteroscopy (Albanian) * Ureteral Stent Discharge Instructions (Albanian) documented in this [facility] Discharge instructions* Attachments The following attachments cannot be sent through Care Everywhere. * Pyeloplasty (Albanian) documented in this [facility] HealthNote* BILLY ANGULO MD: SIGN, VERIFY Event Display: EKG [ED AO] - CV Authored Date: [facility] Progress note No data available for this section [facility] Summary Purpose Family History No Family History Records Found No data available for this section No Family History Records Found No data available for this section No data available for this section No Family History Records Found Advance Directives No Advanced Directives Records FoundNo Advanced Directives Records FoundNo Advanced Directives Records Found Reason for Referral Specialty Diagnoses / Procedures Referred By Contac t Referred To Contact Radiology Diagnoses Hydronephrosis, unspecified hydronephrosis type Procedures NM kidney flow/function w/wo Geovanny Latham MD [address] [address] Referral ID Status Reason Start Date Expiration Date V isits Requested Visits Authorized [id number] Authorized 11/08/2022 05/07/2023 3 3 Additional Source Comments INFORMATION SOURCE (unrecogn ized section and content) DATE CREATED AUTHOR AUTHOR'S ORGANIZ ATION 03/04/2023 [facility] DATE CREATED AUTHOR AUTHOR'S ORGANIZ ATION 03/29/2023 [facility] ([place]) Care Team (unrecognized sect ion and content) Network Support Analyst Relationship Specialty Start Date End Date Aleksandar Cruz [address] [place] [address] PCP - General Nurse Practitioner 11/01/22 Geovanny Grajeda MD [address] [place] [address] Surgeon Urology 11/08/22 Network Support Analyst Relationship Specialty Start Date End Date Aleksandar Cruz [address] [place] [address] PCP - General Nurse Practitioner 11/01/22 Geovanny Grajeda MD [address] [address] Surgeon Urology 11/08/22 Network Support Analyst Relationship Specialty Start Date End Date Aleksandar Cruz [address] [place] [address] PCP - General Nurse Practitioner 11/01/22 Geovanny Grajeda MD [address] [address] Surgeon Urology 11/08/22 Network Support Analyst Relationship Specialty Start Date End Date Aleksandar Cruz 49 [facility] [address] PCP - General Nurse Practitioner 11/01/22 Geovanny Grajeda MD 201 [facility] [address] [place] [address] Surgeon Urology 11/08/22 Network Support Analyst Relationship Specialty Start Date End Date Aleksandar Cruz 49 [facility] [place] [address] PCP - General Nurse Practitioner 11/01/22 Geovanny Grajeda MD 201 [facility] [address] [place] [address] Surgeon Urology 11/08/22 Network Support Analyst Relationship Specialty Start Date End Date Aleksandar Cruz 49 [facility] [place] [address] PCP - General Nurse Practitioner 11/01/22 Geovanny Grajeda MD 201 [facility] [address] [place] [address] Surgeon Urology 11/08/22 Mendel Wagner MD [address] [facility] [address] [place] [address] Surgeon Urology 11/24/22 Network Support Analyst Relationship Specialty Start Date End Date Aleksandar Cruz 49 [facility] Family [facility] [place], [place] [address] PCP - General Nurse Practitioner 11/01/22 Geovanny Grajeda MD [address] [facility] [address] [place] [address] Surgeon Urology 11/08/22 Mendel Wagner MD [address] [facility] [address] [place] [address] Surgeon Urology 11/24/22 Network Support Analyst Relationship Specialty Start Date End Date Aleksandar Cruz 49 [facility] [address] PCP - General Nurse Practitioner 11/01/22 Geovanny Grajeda MD 201 [facility] [address] [place] [address] Surgeon Urology 11/08/22 Mendel Wagner MD [address] [facility] [address] [place] [address] Surgeon Urology 11/24/22 Network Support Analyst Relationship Specialty Start Date End Date Aleksandar Cruz 49 [facility] [place] [address] PCP - General Nurse Practitioner 11/01/22 Geovanny Grajeda MD [address] [facility] [address] [place] [address] Surgeon Urology 11/08/22 Mendel Wagner MD [address] [place] [address] Surgeon Urology 11/24/22 Network Support Analyst Relationship Specialty Start Date End Date Aleksandar Cruz 49 [place] [address] PCP - General Nurse Practitioner 11/01/22 Geovanny Grajeda MD [address] [facility] [address] [place] [address] Surgeon Urology 11/08/22 Mendel Wagner MD [address] [facility] [address] [place] [address] Surgeon Urology 11/24/22 Network Support Analyst Relationship Specialty Start Date End Date Aleksandar Cruz 49 [place] [address] PCP - General Nurse Practitioner 11/01/22 Geovanny Grajeda MD [address] [facility] [address] [place] [address] Surgeon Urology 11/08/22 Mendel Wagner MD [address] [facility] [address] [place] [address] Surgeon Urology 11/24/22 Network Support Analyst Relationship Specialty Start Date End Date Aleksandar Cruz 49 [place] [address] PCP - General Nurse Practitioner 11/01/22 Geovanny Grajeda MD [address] [facility] [address] [place] [address] Surgeon Urology 11/08/22 Mendel Wagner MD [address] [place] [address] Surgeon Urology 11/24/22 Network Support Analyst Relationship Specialty Start Date End Date Aleksandar Cruz 49 [place] [address] PCP - General Nurse Practitioner 11/01/22 Geovanny Grajeda MD [address] [facility] [address] [place] [address] Surgeon Urology 11/08/22 Mendel Wagner MD [address] [place] [address] [address] [place] [address] Surgeon Urology 11/24/22 Network Support Analyst Relationship Specialty Start Date End Date Aleksandar Cruz 49 [place] [address] PCP - General Nurse Practitioner 11/01/22 Geovanny Grajeda MD [address] [address] Surgeon Urology 11/08/22 Mendel Wagner MD [address] [facility] [address] [place] [address] Surgeon Urology 11/24/22 Network Support Analyst Relationship Specialty Start Date End Date Aleksandar Cruz [address] [place] [address] PCP - General Nurse Practitioner 11/01/22 Geovanny Grajeda MD [address] [facility] [address] [place] [address] Surgeon Urology 11/08/22 Mendel Wagner MD [address] [place] [address] Surgeon Urology 11/24/22 Network Support Analyst Relationship Specialty Start Date End Date Aleksandar Cruz [address] [place] [address] PCP - General Nurse Practitioner 11/01/22 Geovanny Grajeda MD [address] [facility] [address] [place] [address] Surgeon Urology 11/08/22 Mendel Wagner MD [address] [facility] [place] [address] Surgeon Urology 11/24/22 Care Team (unrecognized sect ion and content) Care Team Personnel Name: ALEKSANDAR CRUZ STEM THRESHING MACHINE OPERATOR - ROLLING MACHINE OPERATOR AUTOMATIC Position: P4 Advanced Practice Nurse Member Role: Primary Care Physician Address: Address: [address] [place] [id number] [place] [address] Name: VADIM Shore Position: AO RN Member Role: ED RN Name: BILLY ANGULO MD Position: ED Physician Member Role: Attending Physician Address: Address: [facility] [address] [place] [address]- [place] Care Team Related Persons Name: LAYNE GOINS Care Team Personnel Name: ALEKSANDAR CRUZ STEM THRESHING MACHINE OPERATOR - ROLLING MACHINE OPERATOR AUTOMATIC Position: P4 Advanced Edging Supervisor Member Role: Primary Care Physician Address: Address: [address] [place] [address] Care Team Related Persons Name: LAYNE GOINS Care Team Personnel Name: ALEKSANDAR CRUZ STEM THRESHING MACHINE OPERATOR - ROLLING MACHINE OPERATOR AUTOMATIC Position: P4 Advanced Edging Supervisor Member Role: Primary Care Physician Address: Address: [address] [place] [address] Care Team Related Persons Name: LAYNE GOINS Reason for Visit (unrecogniz ed section and content) Referral ID Status Reason Start Date Expiration Date V isits Requested Visits Authorized [id number] Authorized 11/08/2022 05/07/2023 3 3 Reason Onset Date Comments Surgery Scheduling 11/08/2022 Specialty Diagnoses / Procedures Referred By Keo martinez Referred To Contact Diagnoses Unspecified hydronephrosis Unspecified hydronephrosis [N13.30] Procedures MN CYSTO BLADDER W/URETERAL CATHETERIZATION MN CYSTO W/URTROSCOPY&/PYELOSCOPY DX MN CYSTO W/INSERT URETERAL STENT MN CYSTO W/URETEROSCOPY W/LITHOTRIPSY CYSTOSCOPY RETROGRADE PYELOGRAM, LEFT URETEROSCOPY, POSSIBLE HOLMIUM LASER LITHOTRIPSY, LEFT URETERAL STENT PLACEMENT CYSTOSCOPY WITH URETEROSCOPY AND OR PYELOSCOPY DIAGNOSTIC CYSTOSCOPY WITH INSERTION URETERAL STENT CYSTOSCOPY WITH URETEROSCOPY AND OR PYELOSCOPY WITH REMOVAL OR MANIPULATION CALCULUS WITH LITHOTRIPSY Geovanny Grajeda MD [address] [place] [address] [facility] Main Or [address] [place] [address] Referral ID Status Reason Start Date Expiration Date Visits Re quested Visits Authorized [id number] 1 Reason Onset Date Comments Error (VOID this visit) 11/21/2022 Reason Onset Date Comments Post-op Follow-up 11/18/2022 Reason Comments Other Discuss UPJ repair Reason Onset Date Comments Surgery Scheduling 11/30/2022 PAT/SURGERY/F OLLOW UPS Scheduled Reason Comments Procedure Cysto, stent removal Reason Comments Flank Pain Left flank pain with emesis this am. Pt scheduled for ureter surgery 01/[address] Wagner, instructed to come to ED with pain or vomiting. Specialty Diagnoses / Procedures Referred By Keo martinez Referred To Contact Diagnoses Unspecified hydronephrosis Hydronephrosis with ureteropelvic junction obstruction (CODE) Unspecified hydronephrosis [N13.30] Hydronephrosis with ureteropelvic junction obstruction (CODE) [N13.0] Procedures [place] LAPAROSCOPY SURG PYELOPLASTY ROBOTIC LEFT PYELOPLASTY Mendel Wagner MD [address] [place] [address] [facility] Main [address] [facility] [place] [address] Referral ID Status Reason Start Date Expiration Date Visits Re quested Visits Authorized [id number] 1 1 Reason Onset Date Comments Post-op Problem 01/21/2023 Bleeding 023 Reason Comments Post-op Patient here for fol low up post pyeloplasty, pt reports doing well, no issues/concerns Reason Comments Procedure Cysto/Stent removal Scheduled Active and Recently Administ ered Medications (unrecognized section and content) Continuous Medication Order 11/16/2022 11/17/2022 11/18/2022 lactated Ringer's (LR) infusion 50 mL/hr, IntraVENous, Continuous, Starting on Haley 11/18/22 at 0930, Preprocedure, Upon admission to sameday - please start iv if patient does not have iv access. Use 500ml NS for patients on dialysis. 1057 (New Bag - Prov ider: Eugenie Bobby RN)1304 (Continued by Anesthesia - Provider: VIANEY Webster CRNA)1332 (Anesthesia Volume Adjustment - Provider: VIANEY Webster CRNA)1340 (Stopped - Provider: VIANEY Day CRNA) lactated ringers infusion 125 mL/hr, IntraVENous, Continuous, Starting on Haley 11/18/22 at 1345, Recovery (only) 1345 (Canceled Entry - Provider: Automatic Discharge Provider - Comment: Automatically canceled at discontinue of medication order) PRN Medication Order 11/16/2022 11/17/2022 11/18/2022 ALPRAZolam (Xanax) disintegrating tablet 0.25 mg 0.25 mg, Oral, PRN, anxiety, Starting on Haley 11/18/22 at 0925, For 1 dose, Preprocedure, Using dry hands, place tablet on top of tongue and allow to disintegrate. Administration with water is not necessary. diphenhydrAMINE (BENADryl) injection 12.5 mg 12.5 mg, IntraVENous, Once PRN, itching, Starting on Haley 11/18/22 at 1340, For 1 dose, Recovery (only) fentaNYL (Sublimaze) injection 25 mcg 25 mcg, IntraVENous, Every 5 min PRN, moderate pain (4-6), Starting on Haley 11/18/22 at 1340, For 3 doses, Recovery (only), Phase I and Phase II- Initial therapy for moderate pain (4-6). Restricted to a 90 minute time frame starting when the patient can verbally state their pain score. If after 2 doses the pain score does not decrease by more than one point, then call the provider. If oral meds are utilized, do not return to initial therapy medications. fentaNYL (Sublimaze) injection 50 mcg 50 mcg, IntraVENous, Every 5 min PRN, severe pain (7-10), Starting on Haley 11/18/22 at 1340, For 3 doses, Recovery (only), Phase I and Phase II- Initial therapy for severe pain (7-10). Restricted to a 90 minute time frame starting when the patient can verbally state their pain score. If after 2 doses the pain score does not decrease by more than one point, then call the provider. If oral meds are utilized, do not return to initial therapy medications. hydrALAZINE (Apresoline) injection 5 mg(Linked Group 1) 5 mg, IntraVENous, Every 15 min PRN, high blood pressure, for SBP greater than 160 mmHg for 2 consecutive measurements taken from different sites, Starting on Haley 11/18/22 at 1340, For 2 doses, Recovery (only), PRN for SBP > 160 for 2 consecutive measurements, and if one of the following conditions is met: 1) If IV labetolol is ineffective. 2) If HR is under 60. 3) If patient has heart block, COPD or asthma. If both labetalol and hydralazine ineffective, notify anesthesia provider. iopamidol (Isovue-300) 61 % injection (CANCELED) As needed, Starting on Haley 11/18/22 at 1321, Intraprocedure 1321 (Given - Provid er: Geovanny Grajeda MD) labetalol (Normodyne,Trandate) injection 5 mg(Linked Group 1) 5 mg, IntraVENous, Every 10 min PRN, high blood pressure, for SBP greater than 160 mmHg for 2 consecutive measurements taken from different sites., Starting on Haley 11/18/22 at 1340, For 2 doses, Recovery (only), PRN for SBP >160 for 2 consecutive measurements, if HR is 60 or greater. If beta rosario is contraindicated (HR less than 60, heart block, COPD or asthma) use hydralazine IV order. LORazepam (Ativan) injection 0.5 mg 0.5 mg, IntraVENous, Once PRN, for anxiety or muscle spasm., Starting on Haley 11/18/22 at 1340, For 1 dose, Recovery (only), For IV doses dilute dose with 1ml NS. meperidine (Demerol) injection 12.5 mg 12.5 mg, IntraVENous, Every 5 min PRN, shivering, Starting on Haley 11/18/22 at 1340, For 4 doses, Recovery (only), May give every 5 minutes to max of 50mg. ondansetron (Zofran) injection 4 mg 4 mg, IntraVENous, Once PRN, nausea, Starting on Haley 11/18/22 at 1340, For 1 dose, Recovery (only), Initial antiemetic therapy. sodium chloride 0.9 % bolus 500 mL 500 mL, IntraVENous, at 1,000 mL/hr, Administer over 0.5 Hours, PRN, Anti-nausea, Starting on Haley 11/18/22 at 1340, Recovery (only), Indications: Anti-nausea sodium chloride 0.9 % infusion 5-250 mL/hr, IntraVENous, PRN, if patient receiving piggyback infusions and maintenance fluids are not ordered OR KVO fluids to protect IV site / prevent frequent line interruptions / long duration, Starting on Haley 11/18/22 at 0925, Preprocedure, For piggyback infusion, administer at same rate as piggyback for a total of 25 mL. Enter 25 mL into dose field and piggyback rate into rate field of order. If piggyback is infusing at a rate less than 100 mL/hr, enter 25 mL into dose field and 100 mL/hr into rate field of order. For KVO fluids, enter rate of 20 mL/hr or less into rate field of order. sodium chloride 0.9 % infusion 5-250 mL/hr, IntraVENous, PRN, if patient receiving piggyback infusions and maintenance fluids are not ordered OR KVO fluids to protect IV site / prevent frequent line interruptions/ long duration, Starting on Haley 11/18/22 at 1340, Recovery (only), For piggyback infusion, administer at same rate as piggyback for a total of 25 mL. Enter 25 mL into dose field and piggyback rate into rate field of order. If piggyback is infusing at a rate less than 100 mL/hr, enter 25 mL into dose field and 100 mL/hr into rate field of order. For KVO fluids, enter rate of 20 mL/hr or less into rate field of order. sodium chloride 0.9 % irrigation solution (CANCELED) As needed, Starting on Haley 11/18/22 at 1321, Intraprocedure 1321 (Given - Provid er: Geovanny Grajeda MD) sodium chloride 0.9% (NS) flush 10 mL 10 mL, IntraVENous, PRN, line care, Starting on Haley 11/18/22 at 1340, Recovery (only), After every IV line use sodium chloride 0.9% (NS) flush 5-40 mL 5-40 mL, IntraVENous, PRN, line care, After every IV line use, Starting on Haley 11/18/22 at 0925, Preprocedure, For Line Patency: Peripheral IV = 5 mL; Midline or Central Line = 10 mL/lumen. If following IV push medication, administer flush at same rate as the IV push. Flush volume is determined by type of infusion therapy being given. For non-viscous solutions use: Peripheral IV = 5 mL Midline or Central Line = 10 mL/lumen For viscous solutions (i.e. blood components, parenteral nutrition, contrast media, or after obtaining blood sample) use: Peripheral IV = 10 mL Midline or Central Line = 20 mL/lumen sterile water irrigation solution (CANCELED) As needed, Starting on Haley 11/18/22 at 1321, Intraprocedure 1321 (Given - Provid er: Geovanny Grajeda MD) Linked Groups Order Group 1: labetalol (Normodyne,Trandate) injection 5 mgJump to med 5 mg, IntraVENous, Every 10 min PRN, high blood pressure, for SBP greater than 160 mmHg for 2 consecutive measurements taken from different sites., Starting on Haley 11/18/22 at 1340, For 2 doses, Recovery (only)
PRN for SBP >160 for 2 consecutive measurements, if HR is 60 or greater. If beta rosario is contraindicated (HR less than 60, heart block, COPD or asthma) use hydralazine IV order.
Or hydrALAZINE (Apresoline) injection 5 mgJump to med 5 mg, IntraVENous, Every 15 min PRN, high blood pressure, for SBP greater than 160 mmHg for 2 consecutive measurements taken from different sites, Starting on Haley 11/18/22 at 1340, For 2 doses, Recovery (only)
PRN for SBP > 160 for 2 consecutive measurements, and if one of the following conditions is met: 1) If IV labetolol is ineffective. 2) If HR is under 60. 3) If patient has heart block, COPD or asthma. If both labetalol and hydralazine ineffective, notify anesthesia provider.
Scheduled Medication Order 01/05/2023 01/06/2023 01/07/2023 ketorolac (Toradol) injection 15 mg (COMPLETED) 15 mg, IntraVENous, Once, On Tue01/07/23 at 1120, For 1 dose 1140 (Given - Provid er: Keren Arndt RN) ondansetron (Zofran) injection 4 mg (COMPLETED) 4 mg, IntraVENous, Once, On Tue01/07/23 at 1120, For 1 dose 1140 (Given - Provid er: Keren Arndt RN) sodium chloride 0.9 % bolus 1,000 mL (COMPLETED) 1,000 mL, IntraVENous, at 1,000 mL/hr, Administer over 1 Hours, Once, On Tue01/07/23 at 1120, For 1 dose 1139 (New Bag - Prov ider: Keren Arndt RN)1225 (Stopped - Provider: Keren Arndt RN) Scheduled Medication Order 01/18/2023 01/19/2023 01/20/2023 acetaminophen (Tylenol) tablet 1,000 mg (COMPLETED) 1,000 mg, Oral, Once, On Tue01/19/23 at 1315, For 1 dose, Preprocedure, Maximum dose of acetaminophen is 4000 mg from all sources in 24 hours. Do not administer if patient has taken tylenol <4 hours earlier. Do not give if contraindicated ie. patient has active liver disease or cirrhosis. 1324 (Given - Provider: Nguyen Garcia RN) acetaminophen (Tylenol) tablet 1,000 mg 1,000 mg, Oral, Every 8 hours, First dose on Tue01/19/23 at 2300, Phase II/On Unit, Maximum dose of acetaminophen is 4000 mg from all sources in 24 hours. 2354 (Given - Provider: RUT KUMAR) 0607 (Given - Provider: RUT KUMAR)1500 (Canceled Entry - Provider: Automatic Discharge Provider - Comment: Automatically canceled at discontinue of medication order) ceFAZolin in dextrose 4% (Ancef) IVPB 2,000 mg (COMPLETED) 2,000 mg, IntraVENous, Administer over 30 Minutes, Once, On Tue01/19/23 at 1315, For 1 dose, Preprocedure, Administer 60 minutes prior to surgery. premix bag, Suspected Indication (Select all that apply): Surgical Prophylaxis 1602 (Given - Provider: Juventino Cummins CRNA)1818 (Anesthesia Volume Adjustment - Provider: Ivan Triplett CRNA) docusate sodium (Colace) capsule 100 mg 100 mg, Oral, 2 times daily, First dose on Tue01/19/23 at 2300, Phase II/On Unit, Do not crush or break. 2300 (Not Given - Provider: RUT KUMAR - Reason: Patient/family refused) 09 (Given - Provider: Liz Freed RN) escitalopram (Lexapro) tablet 20 mg 20 mg, Oral, Daily, First dose on Tue01/20/23 at 0900, Phase II/On Unit 09 (Given - Provid er: Liz Freed RN) fluticasone (Flonase) nasal spray 1 spray 1 spray, Each Nostril, Daily, First dose on Tue01/20/23 at 0900, Phase II/On Unit, Shake gently. Before first use, prime pump (press 6 times until fine spray appears). After use, clean tip and replace cap. 0900 (Canceled Entry - Provider: Automatic Discharge Provider - Comment: Automatically canceled at discontinue of medication order) hydroCHLOROthiazide (HYDRODiuril) tablet 12.5 mg(Linked Group 1) 12.5 mg, Oral, Daily, First dose on Tue01/20/23 at 0900 0906 (Given - Provid er: Liz Freed RN) sodium chloride 0.9% (NS) flush 10 mL 10 mL, IntraVENous, Every 12 hours scheduled (2 times per day), First dose on Tue01/19/23 at 2300, Phase II/On Unit 2355 (Given - Provider: RUT KUMAR) 0900 (Not Given - Provider: Liz Freed RN - Reason: IV Fluids Infusing) valsartan (Diovan) tablet 320 mg(Linked Group 1) 320 mg, Oral, Daily, First dose on Haley 01/20/23 at 0900 0900 (Canceled Entry - Provider: Automatic Discharge Provider - Comment: Automatically canceled at discontinue of medication order) Continuous Medication Order 01/18/2023 01/19/2023 01/20/2023 lactated Ringer's (LR) infusion (CANCELED) 50 mL/hr, IntraVENous, Continuous, Starting on Tue01/19/23 at 1315, Preprocedure, Upon admission to sameday - please start iv if patient does not have iv access. Use 500ml NS for patients on dialysis. 1325 (New Bag - Provider: Deborah Garcia RN)1551 (Continued by Anesthesia - Provider: Juventino Cummins CRNA)1614 (Anesthesia Volume Adjustment - Provider: Juventino Cummins CRNA)1818 (Stopped - Provider: Ivan Triplett CRNA) lactated ringers infusion 125 mL/hr, IntraVENous, Continuous, Starting on Tue01/19/23 at 2300, Phase II/On Unit 2356 (New Bag - Provider: RUT KUMAR) PRN Medication Order 01/18/2023 01/19/2023 01/20/2023 fentaNYL (Sublimaze) injection 50 mcg (CANCELED) 50 mcg, IntraVENous, Every 5 min PRN, severe pain (7-10), Starting on Tue01/19/23 at 1831, For 3 doses, Recovery (only), Phase I and Phase II- Initial therapy for severe pain (7-10). Restricted to a 90 minute time frame starting when the patient can verbally state their pain score. If after 2 doses the pain score does not decrease by more than one point, then call the provider. If oral meds are utilized, do not return to initial therapy medications. 2048 (Given - Provider: Barbi Mendoza RN) morphine injection 2 mg 2 mg, IntraVENous, Every 3 hours PRN, breakthrough pain, Starting on Tue01/19/23 at 2254, Phase II/On Unit, If oral and IV narcotics ordered, use oral first and only use IV if oral is ineffective or cannot take oral. Do Not give oral and IV within 1 hour of each other unless specifically ordered. ondansetron (Zofran) injection 4 mg(Linked Group 2) 4 mg, IntraVENous, Every 6 hours PRN, nausea, vomiting, Starting on Tue01/19/23 at 2254, Phase II/On Unit, 1st Line. Give IV if patient is unable to take orally. If inadequate response within 60 minutes, proceed to next-line agent or contact provider if no further options ordered. ondansetron ODT (Zofran-ODT) disintegrating tablet 4 mg(Linked Group 2) 4 mg, Oral, Every 8 hours PRN, nausea, vomiting, Starting on Tue01/19/23 at 2254, Phase II/On Unit, 1st Line. If inadequate response within 60 minutes, proceed to next-line agent or contact provider if no further options ordered. Patient should allow tablet to dissolve on tongue. Do not remove from blister pack until just before administering. oxyCODONE (Roxicodone) immediate release tablet 5 mg 5 mg, Oral, Every 4 hours PRN, moderate pain (4-6), severe pain (7-10), Starting on Tue01/19/23 at 2254, Phase II/On Unit sodium chloride 0.9 % infusion 5-250 mL/hr, IntraVENous, PRN, if patient receiving piggyback infusions and maintenance fluids are not ordered OR KVO fluids to protect IV site / prevent frequent line interruptions/ long duration, Starting on Tue01/19/23 at 2254, Phase II/On Unit, For piggyback infusion, administer at same rate as piggyback for a total of 25 mL. Enter 25 mL into dose field and piggyback rate into rate field of order. If piggyback is infusing at a rate less than 100 mL/hr, enter 25 mL into dose field and 100 mL/hr into rate field of order. For KVO fluids, enter rate of 20 mL/hr or less into rate field of order. sodium chloride 0.9% (NS) flush 10 mL 10 mL, IntraVENous, PRN, line care, Starting on Tue01/19/23 at 2254, Phase II/On Unit, After every IV line use sterile water irrigation solution (CANCELED) As needed, Starting on Tue01/19/23 at 1617, Intraprocedure 1617 (Given - Provider: Mendel Wagner MD - Comment: ON BACK TABLE) traMADol (Ultram) tablet 50 mg 50 mg, Oral, Every 6 hours PRN, mild pain (1-3), Starting on Tue01/19/23 at 2302 Linked Groups Order Group 1: valsartan (Diovan) tablet 320 mgJump to med 320 mg, Oral, Daily, First dose on Haley 01/20/23 at 0900 And hydroCHLOROthiazide (HYDRODiuril) tablet 12.5 mgJump to med 12.5 mg, Oral, Daily, First dose on Haley 01/20/23 at 0900 Group 2: ondansetron ODT (Zofran-ODT) disintegrating tablet 4 mgJump to med 4 mg, Oral, Every 8 hours PRN, nausea, vomiting, Starting on Tue01/19/23 at 2254, Phase II/On Unit, 1st Line. If inadequate response within 60 minutes, proceed to next-line agent or contact provider if no further options ordered. Patient should allow tablet to dissolve on tongue. Do not remove from blister pack until just before administering. Or ondansetron (Zofran) injection 4 mgJump to med 4 mg, IntraVENous, Every 6 hours PRN, nausea, vomiting, Starting on Tue01/19/23 at 2254, Phase II/On Unit, 1st Line. Give IV if patient is unable to take orally. If inadequate response within 60 minutes, proceed to next-line agent or contact provider if no further options ordered. FOR RECORDS PERTAINING TO PATIENTS WHO ARE OR HAVE BEEN ENROLLED IN A CHEMICAL DEPENDENCY/SUBSTANCEABUSE PROGRAM, SOME INFORMATION MAY BE OMITTED. This clinical summary was aggregated from multiple sources. Caution should be exercised in using it in the provision of clinical care. This summary normalizes information from multiple sources, and as a consequence, information in this document may materially change the coding, format and clinical context of patient data. In addition, data may be omitted in some cases. CLINICAL DECISIONS SHOULD BE BASED ON THE PRIMARY CLINICAL RECORDS. [facility] provides no warranty or guarantee of the accuracy or completeness of information in this document.
== END | disposition home or self-care (01) ==
PROVIDERS: PCP Nurse Practitioner Family; Referring Provider Internal Medicine Pulmonary Disease; Visit Provider Internal Medicine Pulmonary Disease
DX: J18.8 Other pneumonia, unspecified organism (principal)
CPT/HCPCS: 71046

== ENCOUNTER 2023-04-13 12:13 | Day surgery (SDC) | payer OTHER, SELFPAY ==
[2023-04-13] VITALS (8 sets, daily range): BP systolic 90–137; BP diastolic 57–76; PULSE 60–74; RESP 15–18; TEMP 36.2–37.2; O2SAT 95–99
--- NOTE | 2023-04-13 | FLU_PTH ---
PATHOLOGY RESULTS PATIENT: LONI TURNER LOC: EN U#:[id number] AGE/SX: 52/F ROOM: RE04/13/[address]: Dr. Figueroa Lovell MD : 1970 BED: DIS: 04/13/2023 SPEC #: [id number] RECD: 04/14/23 07:58 STATUS: ZAHRA IMELDA #: [id number] TYE: 04/13/23 00:[address]: Figueroa Lovell V DEPT: CYTOLOGY RECD BY: Mily Booker ENTERED: 04/14/23 08:02 SP TYPE: Fluid OTHR DR: Esteban Cruz, TAXI DRIVER SUPERVISOR-C Tissues: Lung, NOS Lung, NOS Lung, NOS Procedures: Special Stain Group II Special Stain Group I Surgery Specimen Level IV AFB Stain (control) GMS Stain (control) Cytospin Fluid HEADER OPERATION: Bronchoscopy (MAC), fluoroscopy, biopsy, BAL, brushings PRE-OP DIAGNOSIS: Pneumonia, dyspnea TISSUE SUBMITTED: A - Bronchioalveolar lavage, B - Lung brushings, C - Lung brushings x6 slides DIAGNOSIS CYTOLOGY A. Bronchioalveolar lavage (cytospin and cell block): Negative for malignant cells. Negative for acid-fast bacilli and fungal organisms. See comment. B. Lung brushings (cytospin and cell block): Negative for malignant cells. Negative for acid-fast bacilli and fungal organisms. See comment. C. Lung brushings (smears): Negative for malignant cells. AM:bri 04/15/2023 COMMENT A & B. AFB and GMS stains with matched controls were used in the evaluation of this case. See corresponding surgical case [id number]. CYTOLOGY STUDY Slides are reviewed. CYTOLOGY GROSS A - Received is 20 ml of red cloudy, mucoidy fluid labeled with the patient's name and and designated per the requisition as BAL. Submitted for cytology preparation including cell block. B - Received is a metallic endoscopic cytobrush with adherent minute fragments of srivastava-red tissue brush in 2 ml of clear red fluid and labeled with the patient's name and and designated per the requisition as brush . The material is dislodged from the brush and submitted for cytology preparation including cell block. C - Received are six smears labeled with the patient's name and designated per the requisition as brushings. Submitted for staining. / bri 04/14/2023 TC:5 CPT: 92887 x2, 10932 x2, 83873, 56663 x4
--- NOTE | 2023-04-13 | LUNG_PTH ---
PATHOLOGY RESULTS PATIENT: LONI TURNER LOC: EN U#:[id number] AGE/SX: 52/F ROOM: RE04/13/[address]: Dr. Figueroa Lovell MD : 1970 BED: DIS: 04/13/2023 SPEC #: [id number] RECD: 04/14/23 08:15 STATUS: ZAHRA IMELDA #: [id number] TYE: 04/13/23 00:[address]: Figueroa Lovell V DEPT: SURGICAL PATHOLOGY RECD BY: Mily Booker ENTERED: 04/14/23 08:16 SP TYPE: LUNG BX OTHR DR: Esteban Cruz, INSURANCE ACCOUNT SPECIALIST-C Tissues: Right lower lobe of lung, NOS Procedures: Elastin Stain (control) Trichrome (control) Special Stain Group II Special Stain Group I Surgery Specimen Level IV AFB Stain (control) GMS Stain (control) Retic (control) Iron Stain (control) HEADER OPERATION: Bronchoscopy (MAC), fluoroscopy, biopsy, BAL, brushings PRE-OP DIAGNOSIS: Pneumonia, dyspnea TISSUE SUBMITTED: Superior segment of right lower lobe MICROSCOPIC DIAGNOSIS Superior segment of right lower lobe, transbronchial biopsy: Mild interstitial fibrosis and focal chronic inflammation. Focal changes of organizing pneumonitis. No evidence of malignancy. Negative for acid-fast bacilli and fungal organisms. See comment. AM:bri 04/15/2023 COMMENT AFB and GMS stains with matched controls were used in the evaluation of this case. Reticulin and trichrome stains reveals increased uptake in the interstitium and focally in area of organization. Elastin stain does not reveal vasculitis. Iron stain does not reveal remote hemorrhage. All matched controls are appropriate. See corresponding cytology case [id number]. Case has been reviewed in consultation with Dr. Parker who concurs with the above diagnosis. IDC:[email or web address] MICROSCOPIC DESCRIPTION Slides are reviewed. GROSS DESCRIPTION Received in fixative is one container labeled with the patient's name and designated superior segment RLL. The specimen consists of multiple irregular fragments of light srivastava soft tissue that in aggregate measure 0.4 x 0.3 x 0.1 cm. The specimen is totally submitted in one cassette. / ELVIS:bri 04/14/2023 TC:3 CPT: 79899, 37201 x2, 48978 x4
--- OUTSIDE RECORDS SUMMARY | 2023-04-13 12:29 | XMS RPT_ITS | CCD ---
Author Name Unknown Address [id number] [place] [address] Organization [facility] Care Team Providers Care Pit Hand Name Role Phone REFERRING, AMARJIT GENE ID Unavailable Unavailable ALEKSANDAR CRUZ Unavailable Unavailable PHYSICIAN, NONE Unavailable Unavailable ANTHONY COMMERCIAL ESTIMATOR - GENERAL INTERNAL MEDICINE PHYSICIAN, ALEKSANDAR Diaz Primary Care Phys ician AnthonyAleksandar trevizo Primary Care Provider Geovanny Grajeda MD Unavailable Mendel Wagner MD Unavailable [phone] GEOVANNY GRAJEDA Admitting Unavailable GEOVANNY GRAJEDA Attending [...] Unavailable ANTHONY, ALEKSANDAR Primary Care Unavailable ANTHONY COMMERCIAL ESTIMATOR - GENERAL INTERNAL MEDICINE PHYSICIANALEKSANDAR Primary Care U BILLY Arias MD Attending Unavail able ANTHONY COMMERCIAL ESTIMATOR - GENERAL INTERNAL MEDICINE PHYSICIANALEKSANDAR Primary Care U navailable ANTHONY COMMERCIAL ESTIMATOR - GENERAL INTERNAL MEDICINE PHYSICIAN, ALEKSANDAR Diaz Attending U navailable ANTHONY COMMERCIAL ESTIMATOR - GENERAL INTERNAL MEDICINE PHYSICIAN, ALEKSANDAR Diaz Attending U navailable ANTHONY COMMERCIAL ESTIMATOR - GENERAL INTERNAL MEDICINE PHYSICIAN, ALEKSANDAR Diaz Primary Care U navailable ANTHONY COMMERCIAL ESTIMATOR - GENERAL INTERNAL MEDICINE PHYSICIAN, ALEKSANDAR Diaz Attending U navailable ANTHONY COMMERCIAL ESTIMATOR - GENERAL INTERNAL MEDICINE PHYSICIAN, ALEKSANDAR Diaz Primary Care U navailable ANTHONY COMMERCIAL ESTIMATOR - GENERAL INTERNAL MEDICINE PHYSICIAN, ALEKSANDAR Diaz Attending U navailable ANTHONY COMMERCIAL ESTIMATOR - GENERAL INTERNAL MEDICINE PHYSICIAN, ALEKSANDAR Diaz Primary Care U evonailable LOWE SLUDGE FILTRATION ATTENDANT-C, DARIANA Attending Unavailable ANTHONY COMMERCIAL ESTIMATOR - GENERAL INTERNAL MEDICINE PHYSICIAN, ALEKSANDAR Diaz Primary Care U navailable ANTHONY COMMERCIAL ESTIMATOR - GENERAL INTERNAL MEDICINE PHYSICIAN, ALEKSANDAR Diaz Primary Care U navailable [place]BISH GENERAL INTERNAL MEDICINE PHYSICIAN, MAIDA Attending Unavailable Allergies Allergy Classification Reported Allergen(s) Allergy Type Date of Onset Reaction(s) Facility (8 sources) Acetaminophen / HYDROcodone; Translations: [acetaminophen-h ydrocodone] Drug Allergy Hyperactivity [facility] (8 sources) corn extract Drug Allergy [facility] (8 sources) Egg Food allergy [facility] (8 sources) Kingdom Animalia; Translations: [Kingdom Animalia (organism)] Allergy to substance [facility] (8 sources) Mushroom (edible) Food allergy Swelling (finding) [facility] (8 sources) Penicillin; Translations: [penicillins] Drug Allergy N/V diarrhea [facility] (8 sources) Shellfish Food allergy [facility] (8 sources) Sugar intake; Translations: [Sugar intake (observable entity)] Food allergy [facility] (20 sources) Diclofenac; Translations: [diclofenac] Drug Allergy 11-09-19 Stomach ache (finding) [facility] [place] (10 sources) Acetaminophen / HYDROcodone Drug Allergy 10-13-19 13 Hallucinations [facility] (20 sources) Freehold Oil Drug Allergy 11-09-19 [facility] (20 sources) Egg Allergy to substance 11-09-19 [facility] (20 sources) HYDROcodone Drug Allergy 10-12-19 [facility] (20 sources) Penicillins Drug Intolerance 10-13-19 13 Diarrhea, Itching, Nausea And Vomiting, Unknown [facility] (20 sources) Shellfish Allergy to substance 11-09-19 Hives [facility] (20 sources) Food Allergy to substance 11-09-19 Swelling [facility] (3 sources) Octacosanol Propensity to adverse reactions 11-09-19 [facility] (20 sources) Pollen Propensity to adverse reactions 11-19-19 [facility] (16 sources) Contrast media Propensity to adverse reactions 11-25-19 Diarrhea [facility] (10 sources) Other Propensity to adverse reactions 01-13-20 [facility] Medications Current Medications Medication Drug Class(es) [...] q6h, # 18 gram(s), 0 Refill(s), Pharmacy: [facility]/pharmacy #[id number], Wheezing on auscultation, 167, cm, 03/03/23 13:13:00 [...] 0 Refill(s), 03/08/23 1:42:00 PM EST, [id number], Acute bronchitis, 167, cm, 03/03/23 13:13:00 EST, Height, 81, kg, 03/03/23 13:13:00 EST, Dosing Weight Start Date: 03/03/23 Stop Date: 03/08/23 Status: Ordered dexamethasone 6 mg oral tablet (1 source) Corticosteroid Start: 03-03-2023 End: 03-13-2023 dexAMETHasone 6 mg oral tablet Dose : 6 mg = 1 tab(s), Oral, qDay, X 10 day(s), # 10 tab(s), 0 Refill(s), 03/13/23 1:42:00 PM EST, Pharmacy: [facility]/pharmacy #[id number], Wheezing on auscultation, 167, cm, 03/03/23 [...] BID, # 60 tab(s), 0 Refill(s), Pharmacy: [facility]/pharmacy #[id number], Lower back pain, 166, cm, 07/30/21 15:48:00 EDT, Height Start Date: 07/30/21 Stop Date: 08/29/21 Status: Ordered doxycycline hyclate 100 mg oral tablet (1 source) Tetracycline-class Drug Start: 09-07-2022 take 1 tablet by mouth twice daily doxycycline hyclate 100 mg oral tablet TAKE 1 TABLET BY MOUTH TWICE A DAY Start Date: 09/07/22 Status: Ordered [id number] 0.3 ml EPINEPHrine 1 mg/ml auto-injector (20 [...] 167.6 cm Mendel Wagner MD Work Phone: [employer] 03-02-2023 10:12-0500 Body mass index (BMI) [Ratio] 31.47 kg/m2 Mendel Wagner MD Work Phone: [employer] 03-02-2023 10:12-0500 Body weight 88.45 kg Mendel Wagner MD Work Phone: [employer] 03-02-2023 10:12-0500 Diastolic blood pressure 86 mm[Hg] Mendel Wagner MD Work Phone: [employer] 03-02-2023 10:12-0500 Heart rate 76 /min Mendel Wagner MD Work Phone: [employer] 03-02-2023 10:12-0500 Systolic blood pressure 124 mm[Hg] Mendel Wagner MD Work Phone: [employer] 02-02-2023 08:38-0500 Body height 167.6 cm Iris Warren COMMERCIAL ESTIMATOR - GENERAL INTERNAL MEDICINE PHYSICIAN Work Phone: [employer] 02-02-2023 08:38-0500 Body mass index (BMI) [Ratio] 31.47 kg/m2 Iris Warren COMMERCIAL ESTIMATOR - GENERAL INTERNAL MEDICINE PHYSICIAN Work Phone: [employer] 02-02-2023 08:38-0500 Body weight 88.45 kg Iris Warren COMMERCIAL ESTIMATOR - GENERAL INTERNAL MEDICINE PHYSICIAN Work Phone: [employer] 02-02-2023 08:38-0500 Diastolic blood pressure 70 mm[Hg] Iris Warren COMMERCIAL ESTIMATOR - GENERAL INTERNAL MEDICINE PHYSICIAN Work Phone: [employer] 02-02-2023 08:38-0500 Heart rate 59 /min Iris Warren COMMERCIAL ESTIMATOR - GENERAL INTERNAL MEDICINE PHYSICIAN Work Phone: [employer] 02-02-2023 08:38-0500 Systolic blood pressure 103 mm[Hg] Iris Warren COMMERCIAL ESTIMATOR - GENERAL INTERNAL MEDICINE PHYSICIAN Work Phone: [employer] 01-20-2023 09:40-0400 Body temperature 97.9 [degF] Mendel Wagner MD Work Phone: [employer] 01-20-2023 09:40-0400 Diastolic blood pressure 82 mm[Hg] Mendel Wagner MD Work Phone: [employer] 01-20-2023 09:40-0400 Heart rate 70 /min Mendel Wagner MD Work Phone: [employer] 01-20-2023 09:40-0400 Respiratory rate 16 /min Mendel Wagner MD Work Phone: [employer] 01-20-2023 09:40-0400 SaO2% (BldA) [Mass fraction] 94 % Mendel Wagner MD Work Phone: [employer] 01-20-2023 09:40-0400 Systolic blood pressure 133 mm[Hg] Mendel Wagner MD Work Phone: [employer] 01-19-2023 13:12-0400 Body height 167.6 cm Mendel Wagner MD Work Phone: [employer] 01-19-2023 13:12-0400 Body mass index (BMI) [Ratio] 31.96 kg/m2 Mendel Wagner MD Work Phone: [employer] 01-19-2023 13:12-0400 Body weight 89.81 kg Mendel Wagner MD Work Phone: [employer] 01-07-2023 12:25-0400 Diastolic blood pressure 77 mm[Hg] Lyubov Voll DO Work Phone: [employer] 01-07-2023 12:25-0400 Heart rate 65 /min Lyubov Voll DO Work Phone: [employer] 01-07-2023 12:25-0400 Respiratory rate 18 /min Lyubov Voll DO Work Phone: [employer] 01-07-2023 12:25-0400 SaO2% (BldA) [Mass fraction] 93 % Lyubov Voll DO Work Phone: [employer] 01-07-2023 12:25-0400 Systolic blood pressure 143 mm[Hg] Lyubov Voll DO Work Phone: [facility] [employer] 01-07-2023 09:33-0400 Body height 167.6 cm Lyubov Voll DO Work Phone: [facility] [employer] 01-07-2023 09:33-0400 Body mass index (BMI) [Ratio] 31.8 kg/m2 Lyubov Voll DO Work Phone: [facility] [employer] 01-07-2023 09:33-0400 Body temperature 98.29 [degF] Lyubov Voll DO Work Phone: [facility] [employer] 01-07-2023 09:33-0400 Body weight 89.36 kg Lyubov Vuongl DO Work Phone: [facility] [employer] 12-16-2022 13:44-0400 Body height 167.6 cm Mannie Braxton COMMERCIAL ESTIMATOR - GENERAL INTERNAL MEDICINE PHYSICIAN Work Phone: [facility] [employer] 12-16-2022 13:44-0400 Body mass index (BMI) [Ratio] 31.64 kg/m2 Mannie Braxton COMMERCIAL ESTIMATOR - GENERAL INTERNAL MEDICINE PHYSICIAN Work Phone: [facility] [employer] 12-16-2022 13:44-0400 Body weight 88.91 kg Mannie Braxton COMMERCIAL ESTIMATOR - GENERAL INTERNAL MEDICINE PHYSICIAN Work Phone: [facility] [employer] 12-16-2022 13:44-0400 Diastolic blood pressure 78 mm[Hg] Mannie Neily COMMERCIAL ESTIMATOR - GENERAL INTERNAL MEDICINE PHYSICIAN Work Phone: [facility] [employer] 12-16-2022 13:44-0400 Heart rate 73 /min Mannie Neily COMMERCIAL ESTIMATOR - GENERAL INTERNAL MEDICINE PHYSICIAN Work Phone: [facility] [employer] 12-16-2022 13:44-0400 Systolic blood pressure 162 mm[Hg] Mannie Neily COMMERCIAL ESTIMATOR - GENERAL INTERNAL MEDICINE PHYSICIAN Work Phone: [employer] 11-18-2022 15:00-0400 Diastolic blood pressure 74 mm[Hg] Geovanny Grajeda MD Work Phone: [employer] 11-18-2022 15:00-0400 Heart rate 62 /min Geovanny Grajeda MD Work Phone: [facility] [employer] 11-18-2022 15:00-0400 Respiratory rate 16 /min Geovanny Grajeda MD Work Phone: [facility] [employer] 11-18-2022 15:00-0400 SaO2% (BldA) [Mass fraction] 94 % Geovanny Grajeda MD Work Phone: [facility] [employer] 11-18-2022 15:00-0400 Systolic blood pressure 123 mm[Hg] Geovanny Grajeda MD Work Phone: [facility] [employer] 11-18-2022 13:40-0400 Body temperature 98.1 [degF] Geovanny Grajeda MD Work Phone: [facility] [employer] 11-18-2022 09:31-0400 Body height 167.6 cm Geovanny Grajeda MD Work Phone: [facility] 11-18-2022 09:31-0400 Body mass index (BMI) [Ratio] 31.64 kg/m2 Geovanny Grajeda MD Work Phone: [facility] 11-18-2022 09:31-0400 Body weight 88.91 kg Geovanny Grajeda MD Work Phone: [facility] 03-11-2022 12:54-0500 Diastolic Blood Pressure Non-Invasive [address] [facility] 03-11-2022 12:54-0500 Heart rate 74 /min BILLY ANGULO MD [facility] 03-11-2022 12:54-0500 Respiratory rate 17 /min BILLY ANGULO MD [facility] 03-11-2022 12:54-0500 Systolic Blood Pressure Non-Invasive 112 [address] [facility] 03-11-2022 12:33-0500 Diastolic Blood Pressure Non-Invasive 76 [address] [facility] 03-11-2022 12:33-0500 Heart rate 73 /min BILLY ANGULO MD [facility] 03-11-2022 12:33-0500 Respiratory rate 15 /min BILLY ANGULO MD [facility] 03-11-2022 12:33-0500 Systolic Blood Pressure Non-Invasive 119 [address] [facility] 03-11-2022 12:04-0500 Diastolic Blood Pressure Non-Invasive 74 [address] [facility] 03-11-2022 12:04-0500 Heart rate 75 /min BILLY ANGULO MD [facility] 03-11-2022 12:04-0500 Respiratory rate 20 /min BILLY ANGULO MD [facility] 03-11-2022 12:04-0500 Systolic Blood Pressure Non-Invasive 112 [address] [facility] 03-11-2022 10:42-0500 Body height 167.6 cm BILLY ANGULO MD [facility] 03-11-2022 10:42-0500 Body temperature 97.7 [degF] BILLY ANGULO MD [facility] 03-11-2022 10:42-0500 Body weight 87 kg BILLY ANGULO MD [facility] 03-11-2022 10:42-0500 Heart rate 87 /min BILLY ANGULO MD [facility] Encounters Encounter Date Encounter Type Care Provider Facility Start: 03-25-2023 End: 03-26-2023 ambulatory ALEKSANDAR CRUZ COMMERCIAL ESTIMATOR - GENERAL INTERNAL MEDICINE PHYSICIAN Facility:B Start: 03-25-2023 End: 03-25-2023 Patient encounter procedure ALEKSANDAR CRUZ COMMERCIAL ESTIMATOR - GENERAL INTERNAL MEDICINE PHYSICIAN [facility] Start: 03-07-2023 End: 03-08-2023 ambulatory ALEKSANDAR CRUZ COMMERCIAL ESTIMATOR - GENERAL INTERNAL MEDICINE PHYSICIAN Facility:B Start: 03-07-2023 End: 03-07-2023 Patient encounter procedure ALEKSANDAR CRUZ COMMERCIAL ESTIMATOR - GENERAL INTERNAL MEDICINE PHYSICIAN [facility] Start: 03-02-2023 End: 03-02-2023 [facility] Start: 03-02-2023 End: 03-02-2023 Patient encounter procedure Mendel Wagner MD Work Phone: [facility] Procedures Date Procedure Procedure Detail Performing Clinician Start: 01-20-2023 Creatinine other source Emmanuel Yepez MD Work Phone: Start: 01-20-2023 Basic metabolic pane l calcium total Emmanuel Yepez MD Work Phone: Start: 01-19-2023 End: 01-19-2023 Laparoscopy surg pyeloplasty Mendel Wagner MD Work Phone: Start: 01-07-2023 Basic metabolic pane l calcium total Noris Chávez COMMERCIAL ESTIMATOR Work Phone: Start: 01-07-2023 Urnls dip stick/tabl et rgnt auto w/o microscopy Noris Chávez COMMERCIAL ESTIMATOR Work Phone: Start: 11-18-2022 FL GUIDANCE OR USE O NLY - NON-RESULTABLE Geovanny Grajeda MD Work Phone: Start: 03-28-2009 Vaginal hysterectomy RI TERRELL SALAZARPKINS COMMERCIAL ESTIMATOR - GENERAL INTERNAL MEDICINE PHYSICIAN Start: 03-28-2004 Extracorporeal shock wave lithotripsy of calculus of kidney ALEKSANDAR SALAZARPKINS COMMERCIAL ESTIMATOR - GENERAL INTERNAL MEDICINE PHYSICIAN Plan of Treatment Date Care Activity Detail Author Start: 2029 RSV Immunization aged 60 or older (1 - 1-dose 60+ series) RSV Immunization aged 60 or older (1 - 1-dose 60+ series) [facility] Start: 02-16-2025 Diabetes mellitus screening Diabetes Screening [facility] Start: 06-14-2023 End: 06-14-2023 Patient encounter procedure 06/14/2023 9:50 AM EDT Office Visit [facility] [address] [place] [id number] Mendel Wagner MD [address] [place] [address] [facility] Start: 05-30-2023 End: 05-30-2023 Patient encounter procedure 05/30/2023 7:30 AM EST Appointment [facility] [address] [place] [address] Mendel Wagner MD [address] [place] [address] [facility] Start: 03-02-2023 End: 03-02-2024 US Retroperitoneum limited US retroperitoneum limited Imaging Routine Obstruction of left ureteropelvic junction (UPJ) Expected: 03/02/2023, Expires: 03/02/2024 [facility] Work Phone: Immunizations Immunization Date Immunization Notes Care Provider Fa cili 03-17-2021 COVID-19, mRNA, LNP- S, PF, 100 mcg or 50 mcg dose; Translations: [Moderna COVID-19 Vaccine] ALEKSANDAR ANTHONY COMMERCIAL ESTIMATOR - GENERAL INTERNAL MEDICINE PHYSICIAN [facility] 08-29-2020 SARS-CoV-2 (COVID-19 ) mRNA-1273 vaccine ALEKSANDAR CRUZ COMMERCIAL ESTIMATOR - GENERAL INTERNAL MEDICINE PHYSICIAN [facility] 07-31-2020 SARS-CoV-2 (COVID-19 ) mRNA-1273 vaccine ALEKSANDAR CRUZ COMMERCIAL ESTIMATOR - GENERAL INTERNAL MEDICINE PHYSICIAN [facility] Payers Date Payer Category Payer Unknown [employer] [id number] 2022-Present [address] [place] [address] Commercial [id number] 2022 Unknown [id number] 2007 Unknown [id number] 1970 Unknown [id number] 1970 Unknown [id number] 1970 Unknown [id number] 1970 Unknown [id number] 1970 Unknown [id number] 1970 Unknown [id number] 1970 Unknown [id number] Social History Date Type Detail Facility Start: 05-01-2018 End: 03-03-2023 Heavy tobacco smoker (finding) [facility] Start: 1970 Sex Assigned At Female A [facility] Start: 10-26-1984 End: 02-02-2023 Tobacco smoking status NHIS Smokes tobacco daily [facility] Start: 10-26-1984 End: 11-06-2022 History of tobacco use Cigarette Smoker [facility] Start: 11-15-2022 End: 01-20-2023 Cigarettes smoked current (pack per day) - Reported 1 [facility] Start: 11-15-2022 End: 02-02-2023 Tobacco use and exposure Smokeless tobacco non-user [facility] Start: 11-15-2022 End: 01-19-2023 Alcohol intake Current drinker of alcohol (finding) [facility] Start: 11-15-2022 End: 01-20-2023 Tobacco use panel [facility] Start: 1970 Sex Assigned At Not on file [facility] Start: 11-05-2022 End: 12-16-2022 Exposure to SARS-CoV-2 (event) Not sure [facility] Tobacco smoking stat us NDIS Tobacco smoking consumption unknown [facility] Work Phone: Start: 01-07-2023 Alcohol Comment one to two daily [facility] Start: 01-07-2023 Gender identity Identifies as female gender (finding) [facility] How often to you hav e a drink containing alcohol? Monthly or less [facility] How many standard drinks containing alcohol do you have on a typical day? 1 or 2 [facility] Frequency of Binge Drinking Not on file [facility] Within the last year , have you been afraid of your partner or ex-partner? No [facility] How often to you hav e a drink containing alcohol? 4 or more times a week [facility] How often do you hav e 6 or more drinks on 1 occasion? Never [facility] Start: 01-21-2023 End: 03-02-2023 Alcohol intake Ex-drinker (finding) [facility] Medical Equipment Procedure Code Equipment Code Equipment Origin al Text Equipment Identifier Dates Stent Uret 6fr 2 6cm Wo Gw - [id number] Start: 11-18-2022 Stent Uret 6fr 2 6cm Wo Gw - [id number] Start: 01-19-2023 Functional Status Date Assessment Result Facility 03-11-2022 Functional Status Independent [facility] 03-11-2022 Functional Status Standard Safet y ID band on, Allergy Band on, Call device within reach, Bed in low position, Wheels locked [facility] Mental Status Date Assessment Result Facility 03-11-2022 Mental Status Orientation Oriented x [facility] 03-11-2022 Mental Status [facility] Clinical Notes 03-11-2022 to 03-07-2023 Carlee eVlazquez RN - 03/02/2023 10:20 AM Jim Wagner [...] 03/07/2023 9:00:07 AM Ordering Provider: ALEKSANDAR CRUZ [facility] 03-02-2023 Note Cystoscopy Procedure Note Indications: Obstruction [...] 6 weeks post op robotic left pyeloplasty [facility] 03-02-2023 Note Addended by: DEBORAH AVILES on: 03/02/2023 10:45 AM Modules accepted: Orders [facility] 03-02-2023 History of Present illness Narrative ENDOSHEATH [id number] EXP 12/25/25 Images from the original note [...] robotic left pyeloplasty documented in this encounter [facility] 03-02-2023 Miscellaneous Notes Addended by: DEBORAH DREW on: 03/02/2023 10:45 AM Modules accepted: Orders documented in this encounter [facility] 03-02-2023 Note Addended by: DEBORAH AVILES on: 03/02/2023 10:45 AM Modules accepted: Orders [facility] 03-02-2023 Note Addended by: DEBORAH AVILES on: 03/02/2023 10:45 AM Modules accepted: Orders [facility] 03-02-2023 Note Addended by: DEBORAH AVILES on: 03/02/2023 10:45 AM Modules accepted: Orders [facility] 02-02-2023 Telephone encounter Note Return to work letter revised. [facility] [employer] Work Phone: 02-02-2023 Miscellaneous Notes Return to work letter revised. documented in this encounter [facility] 02-02-2023 History of Present illness Narrative Images from the original note were not included. Iris Warren CNP, APRN 02/02/2023 Urology Office Visit [facility] [address] [facility] [address] Dept: [phone] Dept Loc: [phone] PATIENT NAME: Loni Turner DATE OF : [...] follow-ups on file. Iris Warren CNP, APRN [facility] An electronic signature was used to [...] Anxiety Arthritis COPD (chronic obstructive pulmonary disease) ([facility]) not diagnosed, patient feels that she [...] Reactions Red Dye #40 [Red Dye] Diarrhea Freehold Oil Diclofenac Other reaction(s): Stomach upset Egg [...] Component Value Date COLORU 01/22/2023 Comment: Light [place] CLARITYU Clear 01/22/2023 GLUCOSEUR Negative 11/08/2022 BILIRUBINUR Negative 11/08/2022 KETONESU Negative 01/22/2023 SPECGRAV 1.005 11/08/2022 RBCUR Trace-Lysed 11/08/2022 PHUR 5.5 11/08/2022 PROTUR 50 (A) 01/22/2023 UROBILINOGEN Normal 01/22/2023 LEUKOCYTESUR Negative 11/08/2022 NITRITE Negative 11/08/2022 Imaging: Procedure: Please note that portions of this chart were dictated using [employer] electronic voice recognition software. It is possible that typos and/or omissions and/or substitutions of words and/or phrases may exist, which may alter the intended meaning of the dictating provider. documented in this encounter [facility] [employer] 01-24-2023 Telephone encounter Note Noted. Closing encounter. [facility] [employer] Work Phone: 01-24-2023 Miscellaneous Notes Noted. Closing [...] 1 cup Protocols used: Post-Op Symptoms and Zjczalicw-YQYWH-ES documented in this encounter [facility] 01-21-2023 Note S: Patient spoke wit h [facility] nurse regarding post procedure. B: Onset of [...] 1 cup Protocols used: [facility] Telephone encounter Note S: Patient spoke [...] 1 cup Protocols used: Post-Op Symptoms and Mhlzajetu-XITVZ-EK [facility] [employer] 01-20-2023 History of Present illness Narrative Pt [...] assessment and plan documented in this encounter [facility] 01-20-2023 Note Formatting of this n ote might be different from the original. Care Managment Initial Assessment Date: 01/20/2023 Patient Name: Loni Turner : 1970 Patient Information Source of Information: Patient Cognition/Language: WFL - Within Functional Limits Permission given to speak with patient visitor services representative/caregiver as indicated: Yes Confirmation of Payer [...] Prescription Coverage: Yes Pharmacy Used: [facility] [place], [place] Medication Management: Independent Transportation/Shopping: Independent Transportation [...] dc. TCC to follow. Beatris Causey RN [facility] 01-20-2023 Note Formatting of this n ote might be different from the original. Care Managment Initial Assessment Date: 01/20/2023 Patient Name: Loni Turner : 1970 Patient Information Source of Information: Patient Cognition/Language: WFL - Within Functional Limits Permission given to speak with patient visitor services representative/caregiver as indicated: Yes Confirmation of Payer [...] Prescription Coverage: Yes Pharmacy Used: [facility] [place], [place] Medication Management: Independent Transportation/Shopping: Independent Transportation [...] dc. TCC to follow. Beatris Causey RN [facility] 01-20-2023 Miscellaneous Notes Care Managment Initial Assessment Date: 01/20/2023 Patient Name: Loni Turner : 1970 Patient Information Source of Information: Patient Cognition/Language: WFL - Within Functional Limits Permission given to speak with patient visitor services representative/caregiver as indicated: Yes Confirmation of Payer with patient/family: Yes Payer Name: MMO [place]: No Confirmation of Primary Care Physician: Confirmed [...] Daily Living Prescription Coverage: Yes [facility] [place] [place] Medication Management: Independent Transportation/Shopping: Independent Transportation [...] laparoscopic pyeloplasty Surgeon : Mendel Wagner M.D. Management Intern: Todd Valencia Anesthesia: General Special Consideration: Modifier Indications:Loni Turner is a 52 y.o. year-old female who was referred to mi for treatment of a UPJ obstruction. A [...] were placed under direct vision. A 12mm assistant to the dean port was placed below the umbilicus. The [...] 26cm JJ stent was placed through the assistant to the dean port over 0.035 glide wire. The anastomosis was then finished and did appear to be water tight. STEP 6; Wound closure Instruments were removed. A HETAL drain was placed through the left lateral robotic port. Skin was closed by subcuticular 4-0 Monocryls. The specimen was removed. Patient tolerated the procedure well. documented in this encounter [facility] 01-20-2023 Note Patient ID: Loni Turner [id number] 52 y.o. 1970 Admit date: 01/19/2023 Discharge [...] Signed: Lisa Collazo MD 01/20/2023 7:42 AM [facility] 01-20-2023 Note UROLOGY PROGRESS NOTE PATIENT NAME: [...] urology resident. Agree with assessment and plan [facility] 01-20-2023 Note Problem: Pain - Adul t Goal: Verbalizes/displays adequate comfort level or baseline comfort level Outcome: Progressing Problem: Safety - Adult Goal: Free from fall injury Outcome: Progressing [facility] 01-20-2023 Plan of care note Problem: Pain - Adult Goal: Verbalizes/displays adequate comfort level or baseline comfort level Outcome: Progressing Problem: Safety - Adult Goal: Free from fall injury Outcome: Progressing [facility] 01-19-2023 Note Patient: Loni Pop or Procedure Summary Date: 01/19/23 Room / Location: [address] Operating Room Anesthesia Start: 1551 Anesthesia [...] once all PACU criteria has been met. [facility] 01-19-2023 Note Patient: Loni Pop or Procedure Summary Date: 01/19/23 Room / Location: [address] Operating Room Anesthesia Start: 155 Anesthesia [...] opportunity for questions and acknowledgement of understanding. [facility] 01-19-2023 Note Interval History and Physical I [...] (89.8 kg) SpO2 97% BMI 31.96 kg/m? [facility] 01-19-2023 Note Airway Date/Time: 01/19/2023 4:00 PM Urgency: scheduled General Information and Staff Patient location during procedure: Procedural Resident/ORTHOTIC PRACTITIONER: Juventino Cummins CRNA Performed: ORTHOTIC PRACTITIONER Performed by: Juventino Cummins CRNA Authorized by: [...] 22 Number of attempts at approach: 1 [facility] 01-19-2023 Note Peripheral Block Time Out: 01/19/2023 3:58 PM Start time: 01/19/2023 3:59 PM End time: 01/19/2023 4:01 PM Reason for block: at surgeon's request and post-op pain management Staffing Performed: ORTHOTIC PRACTITIONER Resident/ORTHOTIC PRACTITIONER: Manohar Mack APRN - MEIR Preanesthetic Checklist Completed: patient identified, IV checked, site marked, risks and benefits discussed, surgical consent and timeout performed Region: Truncal Primary: Quadratus Lumborum Secondary: Upper rectus Peripheral Block Prep: ChloraPrep Patient monitoring: heart rate, school bus monitor, continuous pulse ox and continuous capnometry O2: ETT/LMA Laterality: left Injection technique: single-shot Guidance: ultrasound guided -image retained in chart, tip of the needle identified by ultraound during injection. Needle Needle: 21G X 110 mm Additional Notes 40 ml left QL block 20 ml rectus block divided evenly bwomtfgvfcp51/25/2023 3:59 PM Assessment Injection assessment: negative aspiration [...] changes noted and No symptoms of toxicityMedications coqEYGEJkwovv-lgpflfytnsa-mdvjxbc rine (TAP) syringe - Injection 60 mL - 01/19/2023 3:59:00 PM [facility] 01-19-2023 History and physical note Interval [...] (89.8 kg) SpO2 97% BMI 31.96 kg/m [facility] 01-19-2023 History and physical note Interval [...] BMI 31.96 kg/m documented in this encounter [facility] 01-19-2023 Note Formatting of this n ote might be different from the original. DOS: January 19, 2023 Pre-op Diagnosis: left UPJ obstruction Post-op Diagnosis: same Operation:left Robotic laparoscopic pyeloplasty Surgeon : Mendel Wagner M.D. Management Intern: Todd Valencia Anesthesia: General Special Consideration: Modifier Indications:Loni Turner is a 52 y.o. year-old female who was referred to mi for treatment of a UPJ obstruction. A [...] were placed under direct vision. A 12mm assistant to the dean port was placed below the umbilicus. The [...] 26cm JJ stent was placed through the assistant to the dean port over 0.035 glide wire. The anastomosis was then finished and did appear to be water tight. STEP 6; Wound closure Instruments were removed. A HETAL drain was placed through the left lateral robotic port. Skin was closed by subcuticular 4-0 Monocryls. The specimen was removed. Patient tolerated the procedure well. [facility] 01-19-2023 Note Formatting of this n ote might be different from the original. DOS: January 19, 2023 Pre-op Diagnosis: left UPJ obstruction Post-op Diagnosis: same Operation:left Robotic laparoscopic pyeloplasty Surgeon : Mendel Wagner M.D. Management Intern: Todd Valencia Anesthesia: General Special Consideration: Modifier Indications:Loni Turner is a 52 y.o. year-old female who was referred to mi for treatment of a UPJ obstruction. A [...] were placed under direct vision. A 12mm assistant to the dean port was placed below the umbilicus. The [...] 26cm JJ stent was placed through the assistant to the dean port over 0.035 glide wire. The anastomosis was then finished and did appear to be water tight. STEP 6; Wound closure Instruments were removed. A HETAL drain was placed through the left lateral robotic port. Skin was closed by subcuticular 4-0 Monocryls. The specimen was removed. Patient tolerated the procedure well. [facility] [employer] 01-14-2023 Telephone encounter Note CALLED PT [phone] LVM FOR PT TO INDEPENDENT LIVING INSTRUCTOR FMLA PAPERWORK BRAILLE PROOFREADER [facility] 01-14-2023 Miscellaneous Notes CALLED PT [phone] LVM FOR PT TO INDEPENDENT LIVING INSTRUCTOR FMLA PAPERWORK BRAILLE PROOFREADER documented in this encounter [facility] 01-12-2023 Note Patient: Loni Pop or Procedure Information Date/Time: 01/19/231499 Procedure: ROBOTIC LEFT PYELOPLASTY (Abdomen) Location: [facility] OR [address] [place] [address] Operating Room Surgeons: Mendel Wagner MD Past Medical History: Past Medical History: No date: Allergies No date: Anxiety No date: Arthritis No date: COPD (chronic obstructive pulmonary disease) ([facility]) Comment: not diagnosed, patient feels that [...] Mannie Contreras MD on 11/16/2022 5:03 PM [facility] 01-12-2023 Note Comprehensive Pre Franz rgical History and Physical ? Name: Loni Turner : 1970 (Age-52 y.o.) Date of Service: Pt seen/examined on 01/12/2023 Procedure Information Date/Time: 01/19/23 1500 Procedure: ROBOTIC LEFT PYELOPLASTY (Abdomen) Location: [facility] OR [address] [place] [address] Operating Room Surgeons: Mendel Wagner MD Chief [...] with Dr Grajeda ? Denies history of RI, CAD, CHF, TIA, CVA Past Medical History: [...] No Allergies: Red dye #40 [red dye]; Freehold oil; Diclofenac; Egg solids, whole; Food; Hydrocodone; [...] and vomiting. Mu (more content not included)... [facility] 01-12-2023 Note Comprehensive Pre Franz rgical History and Physical ? Name: Loni Turner : 1970 (Age-52 y.o.) Date of Service: Pt seen/examined on 01/12/2023 Procedure Information Date/Time: 01/19/23 1500 Procedure: ROBOTIC LEFT PYELOPLASTY (Abdomen) Location: [facility] OR [address] [place] [address] Operating Room Surgeons: Mendel Wagner MD Chief [...] with Dr Grajeda ? Denies history of RI, CAD, CHF, TIA, CVA Past Medical History: [...] No Allergies: Red dye #40 [red dye]; Freehold oil; Diclofenac; Egg solids, whole; Food; Hydrocodone; [...] and vomiting. Mu (more content not included)... [facility] 01-07-2023 Emergency department Note Answered pt's [...] noted. Pt A&Ox4. Alissa Bowman RN 01/07/23 2275 Alissa Bowman RN 01/07/23 2979 [facility] 01-07-2023 Emergency department Note Answered pt's [...] RN 01/07/23 0931 documented in this encounter [facility] 01-07-2023 Emergency department Note Report from VADIM Veliz. Alissa Bowman RN 01/07/23 1311 [facility] 01-07-2023 Emergency department Note Bed: 07 Expected date: Expected time: Means of arrival: Comments: Triage Anh Vazquez RN 01/07/2331 [facility] 01-07-2023 Physician Emergency department Note Emergency Department Encounter [facility] EMERGENCY DEPT Patient: Loni Turner : 1970 [...] [employer] Lyubov Hammond DO 01/07/23 1539 [facility] 12-16-2022 History of Present illness Narrative [facility] UROLOGY [address] [place] [phone] 12/16/2022 at 1:35 PM Urology Office Visit - Procedure Cystoscopy and Ureteral Stent Removal Procedure Note Pre-operative Diagnosis: Hydronephrosis of left kidney [N13.30] Post-operative Diagnosis: same Provider: Mannie Braxton DNP, COMMERCIAL ESTIMATOR Assistants: Karina Pacheco RN Anesthesia: Local anesthesia [...] proposed plan, giving informed consent. A female nurse/saw superintendent was present for the entire procedure. Cystoscopy [...] Patient tolerated procedure well. UROJET 6 ML [facility] [id number] LOT # [id number] S1 EXPIRES 12/2024 Administered by VADIM Collins Pt tolerated well documented in this encounter [facility] 12-16-2022 Instructions VIANEY Li CNP - 12/16/2022 2:00 PM EDT [facility] UROLOGY [address] [facility] [address] [facility] [id number] [facility] Urology Office Cystoscopy and Ureteral Stent [...] nearest emergency department. Mannie Braxton DNP, VIANEY [facility] Urology Office: documented in this encounter [facility] 11-30-2022 Telephone encounter Note LVM for pt in great detail Pt is scheduled for PAT/Surgery with Dr. Wagner @ [place] [id number] Cynthia [place]in PAT: 01/12/23 @ 2 PM ARRIVE @ 1:30 PM No Prep Surgery: 01/19/23 @ 2:30 PM ARRIVE @ 12:30 PM Booklet Mailed Follow up made [facility] 11-30-2022 Miscellaneous Notes LVM for pt in great detail Pt is scheduled for PAT/Surgery with Dr. Wagner @ [place] [address] Cynthia [place] PAT: 01/12/23 @ 2 PM ARRIVE @ 1:30 PM No Prep Surgery: 01/19/23 @ 2:30 PM ARRIVE @ 12:30 PM Booklet Mailed Follow up made ----- Message from Mendel Wagner MD sent at 11/24/2022 2:00 PM EDT ----- Robotic left pyelopasty around 1 mo after cysto stent removal appointment documented in this encounter [facility] 11-30-2022 Telephone encounter Note ----- Message from Mendel Wagner MD sent at 11/24/2022 2:00 PM EDT ----- Robotic left pyelopasty around 1 mo after cysto stent removal appointment [employer] 11-24-2022 History of Present illness Narrative Images [...] EXTRACTION Allergies: Red dye #40 [red dye]; Freehold oil; Diclofenac; Egg solids, whole; Food; Hydrocodone; [...] Reported on 11/24/2022 11/22/22 11/25/22 Dariana Lowe, COMMERCIAL ESTIMATOR - GENERAL INTERNAL MEDICINE PHYSICIAN cyclobenzaprine (Flexeril) 5 MG tablet TAKE 1 [...] 11/24/22 2:00 PM documented in this encounter [facility] 11-23-2022 Note . MICRO - Microbiology PROCEDURE: Urine Culture [*1] SOURCE: Urine, Clean Catch BODY SITE: COLLECTED DATE/TIME: 11/22/2022 16:27 EDT RECEIVED DATE/TIME: 11/22/2022 19:58 EDT START DATE/TIME: 11/22/2022 19:58 EDT FREE TEXT SOURCE: FINAL REPORTS Final Report [] Verified Date/Time/Personnel: 11/23/2022 14:34 EDT <10,000 cfu/ml. No Significant growth. Sensitivity not indicated. Performing Locations *1: This test was performed at: [address], [address] , [facility] ([place]) 11-21-2022 Telephone encounter Note error [facility] 11-21-2022 Miscellaneous Notes error documented in this encounter [facility] 11-21-2022 Telephone encounter Note duplicate [facility] 11-21-2022 Miscellaneous Notes duplicate documented in this encounter [facility] 11-19-2022 Telephone encounter Note Pt agrees to d/t/l for appt with Dr. Wagner on 11/24/22 in [place]. [facility] 11-19-2022 Miscellaneous Notes Pt agrees to d/t/l for appt with Dr. Wagner on 11/24/22 in [place]. She had ureteroscopy and stent placement. She has a UPJ obstruction. She does have a stent which needs to stay in. She needs an appointment with Dr. Wagner or Dr. Amor to discuss UPJ repair. documented in this encounter [facility] 11-18-2022 Note Pt. walked to and fr bathroom, tolerated well, voided. Discharge instructions reviewed with pt, verbalized understanding of discharge teaching. [facility] 11-18-2022 Note Patient: Loni Pop or Procedure Summary Date: 11/18/22 Room / Location: [address] Operating Room Anesthesia Start: 1304 Anesthesia [...] once all PACU criteria has been met. [facility] 11-18-2022 Note Patient: Loni Pop or Procedure Summary Date: 11/18/22 Room / Location: [address] Operating Room Anesthesia Start: 1304 Anesthesia [...] opportunity for questions and acknowledgement of understanding. [facility] 11-18-2022 Miscellaneous Notes Pt. walked to and [...] Diagnostic ureteroscopy was performed using the 6.9 Greenlandic semirigid ureteroscope. The scope was advanced along [...] 11/18/22 3:00 PM documented in this encounter [facility] 11-18-2022 Note Formatting of this n ote might be different from the original. Pt. walked to and from bathroom, tolerated well, voided. Discharge instructions reviewed with pt, verbalized understanding of discharge teaching. [facility] 11-18-2022 Note Formatting of this n ote might be different from the original. Pt. walked to and from bathroom, tolerated well, voided. Discharge instructions reviewed with pt, verbalized understanding of discharge teaching. [facility] 11-18-2022 Note Airway Date/Time: 11/18/2022 1:13 PM Urgency: scheduled Airway not difficult General Information and Staff Patient location during procedure: Procedural Resident/ORTHOTIC PRACTITIONER: VIANEY Webster CRNA Performed: ORTHOTIC PRACTITIONER Performed by: VIANEY Webster CRNA Authorized by: VIANEY Webster CRNA Indications and Patient Condition Indications for airway management: anesthesia and airway protection Sedation level: Asleep Preoxygenated: yes Patient position: sniffing Mask difficulty assessment: 1 - vent by mask Final Airway Details Final airway type: supraglottic airway Successful airway: Igel Size 4 Number of attempts at approach: 1 Ventilation between attempts: [facility] 11-18-2022 Telephone encounter Note She had ureteroscopy and stent placement. She has a UPJ obstruction. She does have a stent which needs to stay in. She needs an appointment with Dr. Wagner or Dr. mAor to discuss UPJ repair. [employer] [facility] [employer] Work Phone: 11-18-2022 Note Formatting of this n ote might be different from the original. 1410- Pt awake, oral airway d/c'd 1412- Patient family/visitor updated by RN at this time. [employer] [facility] 11-18-2022 Note Formatting of this n ote might be different from the original. 1410- Pt awake, oral airway d/c'd 1412- Patient family/visitor updated by RN at this time. [employer] [facility] 11-18-2022 Note Formatting of this n ote [...] stent placement Surgeon Geovanny Grajeda MD Assist [facility] EBL Minimal Drains 6 fr X 26cmJJ [...] Diagnostic ureteroscopy was performed using the 6.9 Green[place]ic semirigid ureteroscope. The scope was advanced along [...] anesthesia. Geovanny Grajeda MD 11/18/22 3:00 PM [facility] 11-18-2022 Note Formatting of this n ote [...] stent placement Surgeon Geovanny Grajeda MD Assist [facility] Minimal Drains 6 fr X 26cmJJ [...] Diagnostic ureteroscopy was performed using the 6.9 Green[place]ic semirigid ureteroscope. The scope was advanced along [...] Geovanny Grajeda MD 11/18/22 3:00 PM T [facility] 11-18-2022 Note H&P Update / Patient's History and Physical from 11/15/22 was reviewed./ Patient examined. There has been no change. Impression: left hydronephrosis Plan: : cp left ureteroscopy left stent : Electronically signed by Geovanny Grajeda MD 11/18/22 11:19 AM [facility] 11-18-2022 Attending History and physical note Images [...] OR MANIPULATION CALCULUS WITH LITHOTRIPSY (Urethra) Location: [facility] OR [address] [place] [address] Operating Room Surgeons: Geovanny Grajeda MD Chief [...] now worse Hx of laser litho in [place]. Void well, no heme, or uti Now pain 2/10 ? Denies history of RI, CAD, CHF, TIA, CVA Past Medical History: [...] Historical Provider, CHRONIC NARCOTIC USE: No Allergies: Freehold oil; Diclofenac; Egg solids, whole; Food; Hydrocodone; [...] EDDIE Bang Date: 11/15/2022 at 11:12 AM [employer] Phone: 11-18-2022 History and physical note Images [...] OR MANIPULATION CALCULUS WITH LITHOTRIPSY (Urethra) Location: [facility] OR [address] [place] [address] Operating Room Surgeons: Geovanny Grajeda MD Chief [...] now worse Hx of laser litho in [place]. Void well, no heme, or uti Now pain / ? Denies history of RI, CAD, CHF, TIA, CVA Past Medical History: [...] Historical Provider, CHRONIC NARCOTIC USE: No Allergies: Freehold oil; Diclofenac; Egg solids, whole; Food; Hydrocodone; [...] at 11:12 AM documented in this encounter [facility] 11-15-2022 Note Patient: Loni Pop or Procedure Information Date/Time: 11/18/22 1100 Procedures: CYSTOSCOPY RETROGRADE PYELOGRAM, LEFT URETEROSCOPY, POSSIBLE HOLMIUM LASER LITHOTRIPSY, LEFT URETERAL STENT PLACEMENT (Urethra) CYSTOSCOPY WITH URETEROSCOPY AND OR PYELOSCOPY DIAGNOSTIC (Urethra) CYSTOSCOPY WITH INSERTION URETERAL STENT (Urethra) CYSTOSCOPY WITH URETEROSCOPY AND OR PYELOSCOPY WITH REMOVAL OR MANIPULATION CALCULUS WITH LITHOTRIPSY (Urethra) Location: [facility] OR [address] [place] [address] Operating Room Surgeons: Geovanny Grajeda MD Past [...] found for this or any previous visit. [facility] 11-15-2022 Note Comprehensive Pre Franz rgical History [...] OR MANIPULATION CALCULUS WITH LITHOTRIPSY (Urethra) Location: [facility] OR [address] [place] [address] Operating Room Surgeons: Geovanny Grajeda MD Chief [...] now worse Hx of laser litho in [place]. Void well, no heme, or uti Now pain 2/10 ? Denies history of RI, CAD, CHF, TIA, CVA Past Medical History: [...] Historical Provider, CHRONIC NARCOTIC USE: No Allergies: Freehold oil; Diclofenac; Egg solids, whole; Food; Hydrocodone; [...] and Sexual Activity (more content not included)... [facility] 11-15-2022 Note Comprehensive Pre Franz rgical History [...] OR MANIPULATION CALCULUS WITH LITHOTRIPSY (Urethra) Location: [facility] OR [address] [place] [address] Operating Room Surgeons: Geovanny Grajeda MD Chief [...] now worse Hx of laser litho in [place]. Void well, no heme, or uti Now pain /10 ? Denies history of RI, CAD, CHF, TIA, CVA Past Medical History: [...] Historical Provider, CHRONIC NARCOTIC USE: No Allergies: Freehold oil; Diclofenac; Egg solids, whole; Food; Hydrocodone; [...] and Sexual Activity (more content not included)... [facility] 11-11-2022 Telephone encounter Note Pt agrees to d/t/l and instructions for surgery on 11/18/[address] [facility] [address] Grajeda. PAT on 11/15/22. [facility] 11-11-2022 Miscellaneous Notes Pt agrees to d/t/l and instructions for surgery on 11/18/[address] [facility] [address] Grajeda. SPEEDY on 11/15/22. SURGERY SCHEDULING PROCEDURE: : Cystoscopy retrograde pyelogram left ureteroscopy left stent placement possible laser lithotripsy DIAGNOSIS: Left hydronephrosis FACILITY: Any DETAILS: OUTPT ANESTHESIA: GENERAL TIME REQUESTED: 1 HR DATE REQUESTED: ROUTINE POST OP FOLLOW UP: 2 WK REP REQUESTED: MEDICAL CLEARANCE: CONFERENCE: NO COVID TESTING: NO documented in this encounter [facility] 11-08-2022 Note SURGERY SCHEDULING PROCEDURE: : Cystoscopy retrograde pyelogram left ureteroscopy left stent placement possible laser lithotripsy DIAGNOSIS: Left hydronephrosis FACILITY: Any DETAILS: OUTPT ANESTHESIA: GENERAL TIME REQUESTED: 1 HR DATE REQUESTED: ROUTINE POST OP FOLLOW UP: 2 WK REP REQUESTED: MEDICAL CLEARANCE: CONFERENCE: NO COVID TESTING: NO [facility] 11-08-2022 Telephone encounter Note SURGERY SCHEDULING PROCEDURE: : Cystoscopy retrograde pyelogram left ureteroscopy left stent placement possible laser lithotripsy DIAGNOSIS: Left hydronephrosis FACILITY: Any DETAILS: OUTPT ANESTHESIA: GENERAL TIME REQUESTED: 1 HR DATE REQUESTED: ROUTINE POST OP FOLLOW UP: 2 WK REP REQUESTED: MEDICAL CLEARANCE: CONFERENCE: NO COVID TESTING: NO [facility] 06-05-2022 Note ORIGINAL EXAMINATION: TWO XRAY [...] Sign Date: 06/05/2022 8:56:11 AM Ordering Provider: [facility] 06-05-2022 Note ORIGINAL EXAMINATION: TWO XRAY VIEWS [...] 06/05/2022 8:56:11 AM Ordering Provider: MAIDA HOOPER [facility] 03-11-2022 Hospital Discharge instructions Patient Education 03/11/2022 [...] the smoke from others. You may use lwku-vsg-prsdaeb acetaminophen or ibuprofen for fever, muscle aching, [...] body and be dangerous to your health. Zijf-vii-vmkqcki remedies won't shorten the length of the [...] or as directed by your healthcare provider [id number] [employer]. [address] [place] [address]. All rights reserved. This information is not intended as a substitute for professional medical care. Always follow your healthcare professional's instructions. Follow Up Care 03/11/2022 10:39:33 With:ALEKSANDAR CRUZ APRN - [facility] Address: [address] [place] [address] [place] [address]- When:2-[address] [facility] 03-11-2022 Note ORIGINAL EXAMINATION: ONE XRAY [...] Date: 03/11/2022 12:03:25 PM Ordering Provider: [facility] Evaluation + Plan note Future Appointments Appointment Date:05/12/2021 03:40:00 PM Scheduled Provider:ALEKSANDAR CRUZ APRN - GENERAL INTERNAL MEDICINE PHYSICIAN Location:[facility] Appointment Type: OV Follow Up Future Scheduled TestsComplete Blood Count 10/05/20Complete Blood Count 04/12/21Lipid Profile 10/05/20Lipid Profile 04/12/21Lipid Profile 04/14/21Vitamin D Level 04/12/21Vitamin D Level 04/14/21Complete Metabolic Panel 10/05/20Complete Metabolic Panel 04/12/21Complete Metabolic Panel 04/14/21 [facility] Evaluation + Plan note Future Appointments Appointment Date:11/09/2021 04:00:00 PM Scheduled Provider:ALEKSANDAR CRUZ APRN - GENERAL INTERNAL MEDICINE PHYSICIAN Location:[facility] Appointment Type:PC OV Follow Up Future Scheduled TestsComplete Blood Count 10/05/20Complete Blood Count 04/12/21Lipid Profile 11/09/21Lipid Profile 10/05/20Lipid Profile 04/12/21Lipid Profile 04/14/21Vitamin D Level 11/09/21Vitamin D Level 04/12/21Vitamin D Level 04/14/21Complete Metabolic Panel 11/09/21Complete Metabolic Panel 10/05/20Complete Metabolic Panel 04/12/21Complete Metabolic Panel 04/14/21XR Elbow Minimum 3 Views Left 07/30/21XR Spine Lumbar W/Obliques 4 Views 07/30/21 [facility] Evaluation + Plan note Future Appointments Appointment Date:06/14/2022 04:00:00 PM Scheduled Provider:ALEKSANDAR CRUZ APRN - GENERAL INTERNAL MEDICINE PHYSICIAN Location:[facility] Appointment Type: OV Follow Up Future Scheduled TestsComplete Blood Count 04/12/21Lipid Profile 11/09/21Lipid Profile 04/12/21Lipid Profile 06/14/22Lipid Profile 04/14/21Microalbumin Level Urine 06/14/22Vitamin D Level 11/09/21Vitamin D Level 04/12/21Vitamin D Level 06/14/22Vitamin D Level 04/14/21Complete Metabolic Panel 11/09/21Complete Metabolic Panel 04/12/21Complete Metabolic Panel 06/14/22Complete Metabolic Panel 04/14/21XR Elbow Minimum 3 Views Left 07/30/21XR Spine Lumbar W/Obliques 4 Views 07/30/21 [facility] Evaluation + Plan note Future Appointments Appointment Date:06/14/2022 04:00:00 PM Scheduled Provider:ALEKSANDAR CRUZ APRN - GENERAL INTERNAL MEDICINE PHYSICIAN Location:[facility] Appointment Type:PC OV Follow Up Future Scheduled TestsLipid Profile 11/09/21Vitamin D Level 11/09/21Complete Metabolic Panel 11/09/21XR Elbow Minimum 3 Views Left 07/30/21XR Spine Lumbar W/Obliques 4 Views 07/30/21 [facility] Evaluation + Plan note Future Appointments Appointment Date:12/17/2022 03:20:00 PM Scheduled Provider:ALEKSANDAR CRUZ APRN, CNP Location:[facility] Appointment Type:PC OV Follow Up Future Scheduled TestsAlbumin/Creatinine Ratio, Random Urine 12/15/22MA Mammo Screening Bilateral w/ Alexey 06/14/22 [facility] Evaluation + Plan note Future Appointments Appointment Date:06/16/2023 08:00:00 AM Scheduled Provider: Location:[facility] Appointment Type:PC Nurse Lab Appointment Date:06/24/2023 03:00:00 PM Scheduled Provider:ALEKSANDAR CRUZ APRN, CNP Location:[facility] Appointment Type:PC OV Future Scheduled TestsLipid Profile //24Albumin/Creatinine Ratio, Random Urine 9//23Albumin/Creatinine Ratio, Random Urine //24Vitamin D Level 24Complete Metabolic Panel 24MA Mammo Screening Bilateral w/ Alexey 06/14/22CT Thorax w/o Contrast 03/07/23 [facility] Evaluation + Plan note Future Appointments Appointment Date:06/16/2023 08:00:00 AM Scheduled Provider: Location:[facility] Appointment Type:PC Nurse Lab Appointment Date:06/24/2023 03:00:00 PM Scheduled Provider:ALEKSANDAR CRUZ APRN, CNP Location:[facility] Appointment Type:PC OV Future Scheduled TestsLipid Profile 06/16/24Albumin/Creatinine Ratio, Random Urine 9/20/23Albumin/Creatinine Ratio, Random Urine //24Vitamin D Level 06/16/24Complete Metabolic Panel 24MA Mammo Screening Bilateral w/ Alexey 06/14/22 [facility] Diagnosis Hydronephrosis, unspecified hydronephrosis type- Primary Acquired hydronephrosis with ureteropelvic junction (UPJ) obstruction Flank pain Abdominal pain, unspecified site [facility]* Diagnosis Hydronephrosis of left kidney- Primary Hydronephrosis Obstruction of left ureteropelvic junction (UPJ) Encounter for removal of ureteral stent Unspecified hydronephrosis Hydronephrosis with ureteropelvic junction obstruction (CODE) documented in this encounter [facility] note* Diagnosis Left flank pain- Primary Abdominal pain, unspecified site Unspecified hydronephrosis Hydronephrosis with ureteropelvic junction obstruction (CODE) documented in this encounter [facility] note* Diagnosis UPJ obstruction, acquired- Primary UPJ obstruction, acquired Urinary (tract) obstruction Urinary obstruction, unspecified documented in this encounter [facility] note* Diagnosis Obstruction of left ureteropelvic junction (UPJ)- Primary documented in this encounter [facility] note* Diagnosis Obstruction of left ureteropelvic junction (UPJ)- Primary documented in this encounter [facility] course Narrative No data available for this section [facility] Discharge instructions No data available for this section [facility] Discharge instructions* Attachments The following attachments cannot be sent through Care Everywhere. * Cystoscopy Discharge Instructions (Algerian) * Ureteroscopy (Algerian) * Ureteral Stent Discharge Instructions (Algerian) documented in this [facility] Discharge instructions* Attachments The following attachments cannot be sent through Care Everywhere. * Pyeloplasty (Algerian) documented in this [facility] HealthNote* BILLY ANGULO MD: SIGN, VERIFY Event Display: EKG [ED AO] - CV Authored Date: [facility] Progress note No data available for this section [facility] Summary Purpose Family History No Family History [...] kidney flow/function w/wo Geovanny Latham MD [address] [address] Referral ID Status Reason Start Date Expiration Date V isits Requested Visits Authorized [id number] Authorized 11/08/2022 05/07/2023 3 3 Additional Source Comments INFORMATION SOURCE (unrecogn ized section and content) DATE CREATED AUTHOR AUTHOR'S ORGANIZ ATION 03/04/2023 [facility] DATE CREATED AUTHOR AUTHOR'S ORGANIZ ATION 03/29/2023 [facility] ([place]) Care Team (unrecognized sect ion and content) Pit Hand Relationship Specialty Start Date End Date Aleksandar Cruz [address] [place] [address] PCP - General Nurse Practitioner 11/01/22 Geovanny Grajeda MD [address] [place] [address] Surgeon Urology 11/08/22 Pit Hand Relationship Specialty Start Date End Date Aleksandar Cruz [address] [place] [address] PCP - General Nurse Practitioner 11/01/22 Geovanny Grajeda MD [address] [address] Surgeon Urology 11/08/22 Pit Hand Relationship Specialty Start Date End Date Aleksandar Cruz [address] [place] [address] PCP - General Nurse Practitioner 11/01/22 Geovanny Grajeda MD [address] [address] Surgeon Urology 11/08/22 Pit Hand Relationship Specialty Start Date End Date Aleksandar Cruz 49 [facility] [address] PCP - General Nurse Practitioner 11/01/22 Geovanny Grajeda MD 201 [facility] 3 [place] [address] Surgeon Urology 11/08/22 Pit Hand Relationship Specialty Start Date End Date Aleksandar Cruz 49 [facility] [place] [address] PCP - General Nurse Practitioner 11/01/22 Geovanny Grajeda MD 201 [facility] 3 [place] [address] Surgeon Urology 11/08/22 Pit Hand Relationship Specialty Start Date End Date Aleksandar Cruz 49 [facility] [place] [address] PCP - General Nurse Practitioner 11/01/22 Geovanny Grajeda MD 201 [facility] 3 [place] [address] Surgeon Urology 11/08/22 Mendel Wagner MD 95 [facility] [address] [place] [address] Surgeon Urology 11/24/22 Pit Hand Relationship Specialty Start Date End Date Aleksandar Cruz 49 [facility] [place], [place] [id number] PCP - General Nurse Practitioner 11/01/22 Geovanny Grajeda MD [address] [facility] [address] [place] [address] Surgeon Urology 11/08/22 Mendel Wagner MD [address] [facility] [address] [place] [address] Surgeon Urology 11/24/22 Pit Hand Relationship Specialty Start Date End Date Aleksandar Cruz 49 [place] [address] PCP - General Nurse Practitioner 11/01/22 Geovanny Grajeda MD 201 [facility] [address] [place] [address] Surgeon Urology 11/08/22 Mendel Wagner MD [address] [facility] [address] [place] [address] Surgeon Urology 11/24/22 Pit Hand Relationship Specialty Start Date End Date Aleksandar Cruz 49 [place] [address] PCP - General Nurse Practitioner 11/01/22 Geovanny Grajeda MD [address] [facility] [address] [place] [address] Surgeon Urology 11/08/22 Mendel Wagner MD [address] [place] [address] Surgeon Urology 11/24/22 Pit Hand Relationship Specialty Start Date End Date Aleksandar Cruz 49 [place] [address] PCP - General Nurse Practitioner 11/01/22 Geovanny Grajeda MD [address] [facility] [address] [place] [address] Surgeon Urology 11/08/22 Mendel Wagner MD [address] [facility] [address] [place] [address] Surgeon Urology 11/24/22 Pit Hand Relationship Specialty Start Date End Date Aleksandar Cruz [address] [place] [address] PCP - General Nurse Practitioner 11/01/22 Geovanny Grajeda MD [address] [facility] [address] [place] [address] Surgeon Urology 11/08/22 Mendel Wagner MD [address] [facility] [address] [place] [address] Surgeon Urology 11/24/22 Pit Hand Relationship Specialty Start Date End Date Aleksandar Cruz [address] [place] [address] PCP - General Nurse Practitioner 11/01/22 Geovanny Grajeda MD [address] [facility] [address] [place] [address] Surgeon Urology 11/08/22 Mendel Wagner MD [address] [place] [address] Surgeon Urology 11/24/22 Pit Hand Relationship Specialty Start Date End Date Aleksandar Cruz [address] [place] [address] PCP - General Nurse Practitioner 11/01/22 Geovanny Grajeda MD 201 [facility] 3 [place] [address] Surgeon Urology 11/08/22 Mendel Wagner MD [address] [place] [address] [address] [place] [address] Surgeon Urology 11/24/22 Pit Hand Relationship Specialty Start Date End Date Aleksandar Cruz [address] [place] [address] PCP - General Nurse Practitioner 11/01/22 Geovanny Grajeda MD [address] [address] Surgeon Urology 11/08/22 Mendel Wagner MD [address] [facility] [address] [place] [address] Surgeon Urology 11/24/22 Pit Hand Relationship Specialty Start Date End Date Aleksandar Cruz [address] [place] [address] PCP - General Nurse Practitioner 11/01/22 Geovanny Grajeda MD 201 [facility] 3 [place] [address] Surgeon Urology 11/08/22 Mendel Wagner MD [address] [place] [address] Surgeon Urology 11/24/22 Pit Hand Relationship Specialty Start Date End Date Aleksandar Cruz [address] [place] [address] PCP - General Nurse Practitioner 11/01/22 Geovanny Grajeda MD [address] [facility] [address] [place] [address] Surgeon Urology 11/08/22 Mendel Wagner MD [address] [facility] [place] [address] Surgeon Urology 11/24/22 Care Team (unrecognized sect ion and content) Care Team Personnel Name: ALEKSANDAR CRUZ COMMERCIAL ESTIMATOR - GENERAL INTERNAL MEDICINE PHYSICIAN Position: P4 Advanced Practice Nurse Member Role: Primary Care Physician Address: Address: [address] [place] [id number] [place] [address] Name: VADIM Shore Position: AO RN Member Role: ED RN Name: BILLY ANGULO MD Position: ED Physician Member Role: Attending Physician Address: Address: [facility] [address] [place] [address]- [place] Care Team Related Persons Name: LAYNE GOINS Care Team Personnel Name: ALEKSANDAR CRUZ COMMERCIAL ESTIMATOR - GENERAL INTERNAL MEDICINE PHYSICIAN Position: P4 Advanced Head Tennis Coach Member Role: Primary Care Physician Address: Address: [address] [place] [address]- Care Team Related Persons Name: LAYNE GOINS Care Team Personnel Name: ALEKSANDAR CRUZ COMMERCIAL ESTIMATOR - GENERAL INTERNAL MEDICINE PHYSICIAN Position: P4 Advanced Head Tennis Coach Member Role: Primary Care Physician Address: Address: [address] [place] [id number] Care Team Related Persons Name: LAYNE GOINS Reason for Visit (unrecogniz ed section and content) Referral ID Status Reason Start Date Expiration Date V isits Requested Visits Authorized [id number] Authorized 11/08/2022 05/07/2023 3 3 Reason Onset Date Comments Surgery Scheduling 11/08/2022 Specialty Diagnoses / Procedures Referred By Keo martinez Referred To Contact Diagnoses Unspecified hydronephrosis Unspecified hydronephrosis [N13.30] Procedures DE CYSTO BLADDER W/URETERAL CATHETERIZATION DE CYSTO W/URTROSCOPY&/PYELOSCOPY DX DE CYSTO W/INSERT URETERAL STENT DE CYSTO W/URETEROSCOPY W/LITHOTRIPSY CYSTOSCOPY RETROGRADE PYELOGRAM, LEFT URETEROSCOPY, POSSIBLE HOLMIUM LASER LITHOTRIPSY, LEFT URETERAL STENT PLACEMENT CYSTOSCOPY WITH URETEROSCOPY AND OR PYELOSCOPY DIAGNOSTIC CYSTOSCOPY WITH INSERTION URETERAL STENT CYSTOSCOPY WITH URETEROSCOPY AND OR PYELOSCOPY WITH REMOVAL OR MANIPULATION CALCULUS WITH LITHOTRIPSY Geovanny Grajeda MD [address] [place] [address] [facility] Main Or [address] [place] [address] Referral ID Status Reason Start Date Expiration Date Visits Re quested Visits Authorized [id number] 1 1 Reason Onset Date Comments Error [...] with ureteropelvic junction obstruction (CODE) [N13.0] Procedures DE LAPAROSCOPY SURG PYELOPLASTY ROBOTIC LEFT PYELOPLASTY Mendel Wagner MD [address] [place] [address] [facility] Main Or [address] [facility] [place] [address] Referral ID Status Reason Start Date Expiration Date Visits Re quested Visits Authorized [id number] 1 1 Reason Onset Date Comments Post-op [...] % injection (CANCELED) As needed, Starting on Hlaey 11/18/22 at 1321, Intraprocedure 1321 (Given - [...] BE BASED ON THE PRIMARY CLINICAL RECORDS. [facility]. provides no warranty or guarantee of the accuracy or completeness of information in this document.
[2023-04-13] MEDS: Lactated Ringers 1,000 ML 15 ML IV (13:07)
[2023-04-13] MEDS: Lidocaine Jelly 2% 20 ML Syringe (URO-JET) 1 APPLIC (13:41)
[2023-04-13] MEDS: Lidocaine 2% (5ml sdv) 5 ML VIAL.MPF (13:42)
[2023-04-13] MEDS: Phenylephrine 0.25% 15 ML NASAL.SRY 15 SPRAY NASAL (14:53)
--- NOTE | 2023-04-13 15:11 | OP.BRONCH_ITS ---
Patient Name: Bhavani Aguilar Procedure Date: 04/13/2023 1:51 PM Date of : 1970 Age: 52 Procedure: Bronchoscopy Indications: Unresolving right lower lobe infiltrate Providers: Figueroa Lovell MD Referring MD: Figueroa Lovell MD Medicines: Lidocaine 2% applied to cords 4 mL Complications: No immediate complications Procedure: Pre-Anesthesia Assessment: - Pre-procedure physical examination revealed no contraindications to sedation. - A History and Physical has been performed. Patient meds and allergies have been reviewed. The risks and benefits of the procedure and the sedation options and risks were discussed with the patient. All questions were answered and informed consent was obtained. Patient identification and proposed procedure were verified prior to the procedure by the nurse in the procedure room. Mental Status Examination: normal. Airway Examination: normal oropharyngeal airway. Respiratory Examination: clear to auscultation. CV Examination: normal and RRR, no murmurs, no S3 or S4. ASA Grade Assessment: I - A normal healthy patient. After reviewing the risks and benefits, the patient was deemed in satisfactory condition to undergo the procedure. The anesthesia plan was to use monitored anesthesia care (MAC). Immediately prior to administration of medications, the patient was re-assessed for adequacy to receive sedatives. The heart rate, respiratory rate, oxygen saturations, blood pressure, adequacy of pulmonary ventilation, and response to care were monitored throughout the procedure. The physical status of the patient was re-assessed after the procedure. After I obtained informed consent, the scope was passed under direct vision. Throughout the procedure, the patient's blood pressure, pulse, and oxygen saturations were monitored continuously. The bronchoscope was introduced through the left nostril and advanced to the tracheobronchial tree. The procedure was accomplished without difficulty. Findings: The bronchoscope was advanced until wedged at the desired location for bronchoalveolar lavage. BAL was performed in the RLL superior segment (B6) of the lung and sent for cell count, bacterial culture, viral smears & culture, and fungal & AFB analysis and cell count, bacterial culture, viral smears & culture, and fungal & AFB analysis and cytology. 60 mL of fluid were instilled. 30 mL were returned. The return was cloudy. There were no mucoid plugs in the return fluid. Fluoroscopy guided transbronchial brushings of an area of infiltration were obtained in the superior segment of the right lower lobe with a cytology brush and sent for cell count, bacterial culture, viral smears & culture, and fungal & AFB analysis and cytology. One sample was obtained. Fluoroscopy guided protected brushings of an area of infiltration were obtained in the superior segment of the right lower lobe and sent for cell count, bacterial culture, viral smears & culture, and fungal & AFB analysis. One sample was obtained. Transbronchial biopsies of a lesion were performed in the superior segment of the right lower lobe using forceps and sent for histopathology examination. The procedure was guided by fluoroscopy. Biopsy of lung tissue was obtained. Two biopsy passes were performed. Two biopsy samples were obtained. Impression: - Unresolving right lower lobe infiltrate - Bronchoalveolar lavage was performed. - Exudate was found in the superior segment of the right lower lobe (B6). Recommendation: - Await test results. Procedure Code(s): --- Professional --- 75018, Bronchoscopy, rigid or flexible, including fluoroscopic guidance, when performed; with transbronchial lung biopsy(s), single lobe 03900, Bronchoscopy, rigid or flexible, including fluoroscopic guidance, when performed; with bronchial alveolar lavage 71296, Bronchoscopy, rigid or flexible, including fluoroscopic guidance, when performed; with brushing or protected brushings Diagnosis Code(s): --- Professional --- R91.8, Other nonspecific abnormal finding of lung field CPT copyright 2021 [employer]. All rights reserved. The codes documented in this report are preliminary and upon state assessed properties director review may be revised to meet current compliance requirements. MD Figueroa Lynn MD 04/13/2023 3:10:52 PM This report has been signed electronically. Number of Addenda: 0 Note Initiated On: 04/13/2023 1:51 PM
--- NOTE | 2023-04-13 15:15 | RAD_ITS ---
STUDY: X-RAY CHEST REASON FOR EXAM: Female, 52 years old. Postoperative evaluation. TECHNIQUE: Single frontal view of the chest. COMPARISON: 04/06/2023 FINDINGS: Stable patchy parenchymal opacity projected over the right hilum. Mild hyperinflation unchanged. There is no demonstrated pleural abnormality. Stable cardiomegaly. Normal mediastinum and lit. Normal visualized pulmonary arteries. Normal visualized aortic arch and descending thoracic aorta. Normal visualized thoracic spine. Normal visualized ribs, clavicles, and shoulders. No abnormality of the visualized soft tissue structures of the upper abdomen. RAD/Chest 1 View (Portable) IMPRESSION: Stable cardiomegaly, hyperinflation and patchy parenchymal opacity projected over the right hilum. No acute abnormality. Electronically Signed: Ino Graves MD at 15:33 EST ,
[2023-04-13 15:31] LABS: Cytology, Body Fluid / CSF SEE PATHOLOGY REPORT
--- NOTE | 2023-04-13 16:07 | SUR.PHASEII ---
spoke to dr emanuel. he said pt may go home.
== END 2023-04-13 16:37 | disposition home or self-care (01) ==
LOC: EN 12:24 → AC 12:25
PROVIDERS: PCP Nurse Practitioner Family; Referring Provider Internal Medicine Pulmonary Disease; Visit Provider Internal Medicine Pulmonary Disease
PROC: 0BJ08ZZ Inspection of Tracheobronchial Tree, Via Natural or Artificial Opening Endoscopic (ICD-10-PCS; CPT 31622; principal; 2023-04-13 13:15)
DX: J18.8 Other pneumonia, unspecified organism (principal); R91.8 Other nonspecific abnormal finding of lung field; R06.00 Dyspnea, unspecified; Z87.891 Personal history of nicotine dependence; I10 Essential (primary) hypertension
CPT/HCPCS: 31624; 31623; 31628; 71045; 76000; 87015; 87070; 87071; 87075; 87077; 87116; 87186; 87205; 87206; 88108; 88305; 88312; 88313; J7120; J2405